=== PATIENT | female | born 1935 | race Caucasian/White ===

== ENCOUNTER 2016-12-11 12:21 | Emergency (ER) | payer MEDICARE, BC ==
[2016-12-11] MEDS ORDERED: SODIUM CHLORIDE 0.9% 1,000 ML IV STA (13:01)
[2016-12-11] MEDS ORDERED: MORPHINE SULFATE 4 MG/ML SYRINGE IV STA (13:01)
[2016-12-11 13:13] LABS: Basophils # (A) 0.1 k/uL (0-0.2); Basophils % (A) 1 %; CH 30.1; CHCM 32.6; Eosinophils # (A) 0.2 k/uL (0-0.7); Eosinophils % (A) 2 %; HCT 37.5 % (34.0-46.0); HDW 2.13; HGB 12.1 gm/dL (11.4-16.0); Luc # (Auto) 0.16; Luc % (Auto) 2; Lymphocytes # (A) 1.9 k/uL (1.0-4.8); Lymphocytes % (A) 24 %; MCH 29.8 pg (25.0-35.0); MCHC 32.1 g/dL (31.0-37.0); MCV 92.8 fL (80.0-100.0); Mean Platelet Volume 9.2; Monocytes # (A) 0.5 k/uL (0-1.0); Monocytes % (A) 6 %; Neutrophils # (A) 4.9 k/uL (1.3-7.7); Neutrophils % (A) 65 %; RBC 4.04 m/uL (3.80-5.40); RDW 13.4 % (11.5-15.5); WBC 7.6 k/uL (3.8-10.6); WBC (Perox) 8.11
[2016-12-11 13:22] LABS: INR 1.1 (<1.1); Prothrombin Time 10.7 sec (9.0-12.0)
--- NOTE | 2016-12-11 13:32 | XR ---
EXAMINATION TYPE: XR chest 2V DATE OF EXAM: 12/11/2016 COMPARISON: June 17, 2016 HISTORY: Shortness of breath TECHNIQUE: Frontal and lateral views of the chest are obtained. FINDINGS: Scattered senescent parenchymal changes noted. Hyperinflation compatible with COPD. No evidence for infiltrate. No evidence for atelectasis. Heart size is stable. Mediastinal structures are stable and grossly unremarkable. No evidence for hilar prominence. Degenerative changes dorsal spine. Clinical eventration right hemidiaphragm. IMPRESSION: 1. No evidence for acute pulmonary disease.
[2016-12-11 13:38] LABS: Creatine Kinase 71 U/L (30-135)
[2016-12-11 13:46] LABS: Calcium 8.8 mg/dL (8.4-10.2); Magnesium 1.6 mg/dL (1.6-2.3); Potassium 3.9 mmol/L (3.5-5.1); Total Bilirubin 0.6 mg/dL (0.2-1.3); Total Protein 5.7 g/dL (6.3-8.2)
[2016-12-11 13:51] LABS: Creatine Kinase MB 0.7 ng/mL (0.0-2.4); Troponin I <0.012 ng/mL (0.000-0.034)
--- NOTE | 2016-12-11 14:08 | ED ---
General Adult HPI - General Chief complaint: Chest Pain Stated complaint: Left Side Pain Time Seen by Provider: 12/11/16 13:01 Source: patient, family, RN notes reviewed, old records reviewed Mode of arrival: wheelchair Limitations: no limitations - History of Present Illness Initial comments: This is an 81-year-old female ER for evaluation back pain and upper neck pain left upper shoulder pain worse with movement. Patient has no shortness of breath, no fevers cough or congestion. No modifying factors at all for pain. Family states they did give her Motrin 2 days ago that did help her help her at least get sleep. Pains going on the third day and patient is is that getting any better. She denies any trauma. Does state she has a history of similar pain usually from sleeping well - Related Data Home Medications Medication Instructions Recorded Confirmed Atorvastatin [Lipitor] 10 mg PO QAM 08/01/15 12/11/16 DULoxetine HCL [Cymbalta] 60 mg PO HS 08/01/15 12/11/16 Desloratadine 5 mg PO QAM 08/01/15 12/11/16 Donepezil HCl [Aricept] 10 mg PO HS 08/01/15 12/11/16 Ferrous Sulfate [Feosol] 325 mg PO DAILY 08/01/15 12/11/16 Gabapentin [Neurontin] 200 mg PO BID 08/01/15 12/11/16 Levothyroxine Sodium [Synthroid] 150 mcg PO QAM 08/01/15 12/11/16 Metoprolol Succinate (ER) [Toprol 25 mg PO HS 08/01/15 12/11/16 XL] Mirabegron [Myrbetriq] 50 mg PO QAM 08/01/15 12/11/16 Pantoprazole [Protonix] 40 mg PO QAM 08/01/15 12/11/16 buPROPion HCL [Wellbutrin SR] 200 mg PO BID 08/01/15 12/11/16 Aspirin EC [Ecotrin Low Dose] 81 mg PO QAM 06/17/16 12/11/16 Insulin Lispro [humaLOG Kwikpen] 10 unit SQ QAM 06/17/16 12/11/16 Isosorbide Mononitrate ER [Imdur] 30 mg PO QAM 06/17/16 12/11/16 Metoprolol Succinate (ER) [Toprol 50 mg PO QAM 06/17/16 12/11/16 XL] Ascorbic Acid [Vitamin C] 1,000 mg PO DAILY 12/11/16 12/11/16 Cyanocobalamin (Vitamin B-12) 2,500 mcg PO DAILY 12/11/16 12/11/16 [Vitamin B12] Furosemide [Lasix] 60 mg PO QAM 12/11/16 12/11/16 Insulin Glargine,Hum.rec.anlog 52 unit SQ QAM 12/11/16 12/11/16 [Lantus Solostar] Losartan [Cozaar] 25 mg PO QAM 12/11/16 12/11/16 Meclizine [Antivert] 12.5 mg PO BID PRN 12/11/16 12/11/16 Allergies Allergy/AdvReac Type Severity Reaction Status Date / Time Penicillins Allergy Rash/Hives Verified 12/11/16 12:56 Sulfa (Sulfonamide Allergy Rash/Hives Verified 12/11/16 12:56 Antibiotics) Review of Systems ROS Statement: Those systems with pertinent positive or pertinent negative responses have been documented in the HPI. ROS Other: All systems not noted in ROS Statement are negative. Past Medical History Past Medical History: Cancer, Heart Failure, Diabetes Mellitus, GERD/Reflux, Hyperlipidemia, Hypertension, Memory Impairment, Osteoarthritis (OA), Sleep Apnea/CPAP/BIPAP, Thyroid Disorder Additional Past Medical History / Comment(s): Other HX: IDDM type II, MICHAEL with CPAP, hypothyroidism, iron deficiency anemia, hiatal hernia, chronic back pain, bilateral neuropathy of legs and feet, leg edema bilaterally, memory impairment , rocacea, cervical and uterine cancer with hysterectomy, History of Any Multi-Drug Resistant Organisms: None Reported Past Surgical History: Bariatric Surgery, Cholecystectomy, Heart Catheterization , Hernia Repair, Hysterectomy Additional Past Surgical History / Comment(s): 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 Past Anesthesia/Blood Transfusion Reactions: No Reported Reaction Additional Past Anesthesia/Blood Transfusion Reaction / Comment(s): Pt has had blood transfused without reaction. Past Psychological History: Anxiety, Depression Additional Psychological History / Comment(s): Pt lives alone. She has a daughter who is very helpful. Her vonda assists her and manages pt's meds and drives pt to appts. Pt uses a cane to ambulate. Smoking Status: Never smoker Past Alcohol Use History: None Reported Past Drug Use History: None Reported - Past Family History Father Family Medical History: Cancer (Father at the age 88 from prostate cancer) Additional Family Medical History / Comment(s): Father of prostate cancer at age 88 yrs. Mother Family Medical History: Cancer (Mother at age of 76 from myocardial infarction, diabetes and some sort of cancer), Diabetes Mellitus, Myocardial Infarction ([place]) Additional Family Medical History / Comment(s): Mother at age 77yrs. Brother(s) Family Medical History: Blood Disorder, CVA/TIA (Patient had 4 brothers one of her brothers from down syndrome at age 58 the second one from CVA at 63rd one from myocardial infarction and competition of diabetes the fourth one at age of 71 from leukemia), Diabetes Mellitus, Myocardial Infarction ( [place]) Daughter(s) Family Medical History: Cancer (Patient had 4 daughters one of them from liver cancer.) Son(s) Family Medical History: No Reported History (Patient has 4 sons no major medical problems) General Exam Limitations: no limitations General appearance: alert, in no apparent distress, obese Head exam: Present: atraumatic, normocephalic, normal inspection Eye exam: Present: normal appearance, PERRL, EOMI. Absent: scleral icterus, conjunctival injection, periorbital swelling ENT exam: Present: normal exam, mucous membranes moist Neck exam: Present: normal inspection. Absent: tenderness, meningismus, lymphadenopathy Respiratory exam: Present: normal lung sounds bilaterally. Absent: respiratory distress, wheezes, rales, rhonchi, stridor Cardiovascular Exam: Present: regular rate, normal rhythm, normal heart sounds. Absent: systolic murmur, diastolic murmur, rubs, gallop, clicks GI/Abdominal exam: Present: soft, normal bowel sounds. Absent: distended, tenderness, guarding, rebound, rigid Extremities exam: Present: normal inspection, full ROM, normal capillary refill. Absent: tenderness, pedal edema, joint swelling, calf tenderness Back exam: Present: normal inspection Neurological exam: Present: alert, oriented X3, CN II-XII intact Psychiatric exam: Present: normal affect, normal mood Skin exam: Present: warm, dry, intact, normal color. Absent: rash Course Vital Signs 12/11/16 12/11/16 12/11/16 12:29 13:25 14:10 Temperature 99.4 F Pulse Rate 58 L 55 L 54 L Respiratory 18 16 18 Rate Blood Pressure 121/57 126/56 118/57 O2 Sat by Pulse 98 99 98 Oximetry - Reevaluation(s) Reevaluation #1: 12/11/16 14:49 Family states patient does have history of similar pain usually for sleeping wrong EKG Findings - EKG Comments: EKG Findings:: EKG shows normal sinus rhythm rate of 60, GA 170, QRS 86, QTc 462 Medical Decision Making - Medical Decision Making 81 female at a year for evaluation of pain, neck upper back and left shoulder pain, patient is very immobile and obese. Pain worse with movement. Pain resolved with pain control. X-ray lab work is normal and patient will be discharged home. - Lab Data Result diagrams: 12/11/16 12:53 12/11/16 12:53 Lab Results 12/11/16 12/11/16 12/11/16 Range/Units 12:53 12:53 12:53 WBC 7.6 (3.8-10.6) k/uL RBC 4.04 (3.80-5.40) m/uL Hgb 12.1 (11.4-16.0) gm/dL Hct 37.5 (34.0-46.0) % MCV 92.8 (80.0-100.0) fL MCH 29.8 (25.0-35.0) pg MCHC 32.1 (31.0-37.0) g/dL RDW 13.4 (11.5-15.5) % Plt Count 214 (150-450) k/uL Neutrophils % 65 % Lymphocytes % 24 % Monocytes % 6 % Eosinophils % 2 % Basophils % 1 % Neutrophils # 4.9 (1.3-7.7) k/uL Lymphocytes # 1.9 (1.0-4.8) k/uL Monocytes # 0.5 (0-1.0) k/uL Eosinophils # 0.2 (0-0.7) k/uL Basophils # 0.1 (0-0.2) k/uL PT (9.0-12.0) sec INR (<1.1) APTT (22.0-30.0) sec Sodium 142 (137-145) mmol/L Potassium 3.9 (3.5-5.1) mmol/L Chloride 103 (98-107) mmol/L Carbon Dioxide 29 (22-30) mmol/L Anion Gap 10 mmol/L BUN 23 H (7-17) mg/dL Creatinine 1.40 H (0.52-1.04) mg/dL Est GFR (MDRD) Af Amer 44 (>60 ml/min/1.73 sqM) Est GFR (MDRD) Non-Af 36 (>60 ml/min/1.73 sqM) Glucose 96 (74-99) mg/dL Calcium 8.8 (8.4-10.2) mg/dL Magnesium 1.6 (1.6-2.3) mg/dL Total Bilirubin 0.6 (0.2-1.3) mg/dL AST 22 (14-36) U/L ALT 29 (9-52) U/L Alkaline Phosphatase 105 (38-126) U/L Total Creatine Kinase 71 (30-135) U/L CK-MB (CK-2) 0.7 (0.0-2.4) ng/mL CK-MB (CK-2) Rel Index 1.0 Troponin I <0.012 (0.000-0.034) ng/mL NT-Pro-B Natriuret Pep pg/mL Total Protein 5.7 L (6.3-8.2) g/dL Albumin 3.5 (3.5-5.0) g/dL Lipase 71 (23-300) U/L 12/11/16 12/11/16 Range/Units 12:53 12:53 WBC (3.8-10.6) k/uL RBC (3.80-5.40) m/uL Hgb (11.4-16.0) gm/dL Hct (34.0-46.0) % MCV (80.0-100.0) fL MCH (25.0-35.0) pg MCHC (31.0-37.0) g/dL RDW (11.5-15.5) % Plt Count (150-450) k/uL Neutrophils % % Lymphocytes % % Monocytes % % Eosinophils % % Basophils % % Neutrophils # (1.3-7.7) k/uL Lymphocytes # (1.0-4.8) k/uL Monocytes # (0-1.0) k/uL Eosinophils # (0-0.7) k/uL Basophils # (0-0.2) k/uL PT 10.7 (9.0-12.0) sec INR 1.1 (<1.1) APTT 30.0 (22.0-30.0) sec Sodium (137-145) mmol/L Potassium (3.5-5.1) mmol/L Chloride (98-107) mmol/L Carbon Dioxide (22-30) mmol/L Anion Gap mmol/L BUN (7-17) mg/dL Creatinine (0.52-1.04) mg/dL Est GFR (MDRD) Af Amer (>60 ml/min/1.73 sqM) Est GFR (MDRD) Non-Af (>60 ml/min/1.73 sqM) Glucose (74-99) mg/dL Calcium (8.4-10.2) mg/dL Magnesium (1.6-2.3) mg/dL Total Bilirubin (0.2-1.3) mg/dL AST (14-36) U/L ALT (9-52) U/L Alkaline Phosphatase (38-126) U/L Total Creatine Kinase (30-135) U/L CK-MB (CK-2) (0.0-2.4) ng/mL CK-MB (CK-2) Rel Index Troponin I (0.000-0.034) ng/mL NT-Pro-B Natriuret Pep 464 pg/mL Total Protein (6.3-8.2) g/dL Albumin (3.5-5.0) g/dL Lipase (23-300) U/L - Radiology Data Radiology results: report reviewed (Chest x-ray is negative for acute disease), image reviewed Disposition Clinical Impression: Myalgia, Cervical strain Disposition: HOME SELF-CARE Condition: Good Instructions: Musculoskeletal Pain (ED) Referrals: Malcolm Miranda MD [Primary Care Provider] - 1-2 days
[2016-12-11 15:08] VITALS: BP 120/58; PULSE 87; RESP 16; TEMP 97.6
== END 2016-12-11 15:09 | disposition home or self-care (01) ==
LOC: EC 12:21
DX: S16.1XXA Strain of muscle, fascia and tendon at neck level, initial encounter (principal); M79.1 Myalgia; R07.9 Chest pain, unspecified; I11.0 Hypertensive heart disease with heart failure; I50.9 Heart failure, unspecified; E11.9 Type 2 diabetes mellitus without complications; E78.5 Hyperlipidemia, unspecified; K21.9 Gastro-esophageal reflux disease without esophagitis; M19.90 Unspecified osteoarthritis, unspecified site; E03.9 Hypothyroidism, unspecified; F32.9 Major depressive disorder, single episode, unspecified; F41.9 Anxiety disorder, unspecified; D50.9 Iron deficiency anemia, unspecified; Z85.41 Personal history of malignant neoplasm of cervix uteri; Z85.42 Personal history of malignant neoplasm of other parts of uterus; Z79.4 Long term (current) use of insulin; Z79.82 Long term (current) use of aspirin; Z79.899 Other long term (current) drug therapy; Z88.0 Allergy status to penicillin; Z88.2 Allergy status to sulfonamides; X58.XXXA Exposure to other specified factors, initial encounter
CPT/HCPCS: 36415; 93005; 83880; 80053; 82550; 82553; 83690; 83735; 84484; 85025; 85610; 85730; 71020; 99285; 96374; 96361 ×2; J2270

== ENCOUNTER 2019-03-25 21:53 | Inpatient (IN) | payer MEDICARE, BC ==
--- NOTE | 2019-03-25 21:55 | ED ---
Fall HPI - General Stated Complaint: syncope Time Seen by Provider: 03/25/19 21:54 - History of Present Illness Initial Comments: Marleen is a pleasant 84-year-old female presents to the emergency department today via EMS after a syncopal episode at home. Per the patient she had a syncopal episode yesterday and fell she's been having some pain in her right shoulder since then. This evening she had used the restroom got up and was washing her hands when she began to feel very lightheaded and fell to the ground. Patient felt too weak to stand so EMS was contacted. EMS found the patient resting, she is noted to be somewhat hypotensive, and at the hospital she received some IV fluids her blood pressure improved remained asymptomatic. Patient reports never had any chest pain or palpitations prior to fall. She did not hit her head she did not have a loss of consciousness. She has no history of syncope in the past. - Related Data Home Medications Medication Instructions Recorded Confirmed Atorvastatin [Lipitor] 10 mg PO QAM 08/01/15 03/25/19 DULoxetine HCL [Cymbalta] 60 mg PO HS 08/01/15 03/25/19 Desloratadine 5 mg PO QAM 08/01/15 03/25/19 Donepezil HCl [Aricept] 10 mg PO HS 08/01/15 03/25/19 Gabapentin [Neurontin] 200 mg PO BID 08/01/15 03/25/19 Mirabegron [Myrbetriq] 50 mg PO QAM 08/01/15 03/25/19 Pantoprazole [Protonix] 40 mg PO QAM 08/01/15 03/25/19 buPROPion HCL [Wellbutrin SR] 200 mg PO BID 08/01/15 03/25/19 Aspirin EC [Ecotrin Low Dose] 81 mg PO QAM 06/17/16 03/25/19 Isosorbide Mononitrate ER [Imdur] 30 mg PO QAM 06/17/16 03/25/19 Insulin Glargine,Hum.rec.anlog 50 unit SQ 12/11/16 03/25/19 [Lantus Solostar] Losartan [Cozaar] 25 mg PO QAM 12/11/16 03/25/19 Ascorbic Acid [Vitamin C] 500 mg PO DAILY 03/25/19 03/25/19 Cyanocobalamin (Vitamin B-12) 2,500 mcg PO DAILY 03/25/19 03/25/19 [Vitamin B-12] Ergocalciferol [Vitamin D2] 50,000 unit PO FR 03/25/19 03/25/19 Ferrous Sulfate [Feosol] 325 mg PO DAILY 03/25/19 03/25/19 Furosemide [Lasix] 40 mg PO DAILY 03/25/19 03/25/19 HYDROcodone/APAP 5-325MG [[place] 1 tab PO BID PRN 03/25/19 03/25/19 5-325] Levothyroxine Sodium [Synthroid] 175 mcg PO MOTUWETHFR 03/25/19 03/25/19 Metoprolol Succinate (ER) [Toprol 25 mg PO DAILY 03/25/19 03/25/19 Xl] Allergies Allergy/AdvReac Type Severity Reaction Status Date / Time Penicillins Allergy Rash/Hives Verified 03/25/19 23:25 Sulfa (Sulfonamide Allergy Rash/Hives Verified 03/25/19 23:25 Antibiotics) Review of Systems ROS Statement: Those systems with pertinent positive or pertinent negative responses have been documented in the HPI. ROS Other: All systems not noted in ROS Statement are negative. Past Medical History Past Medical History: Cancer, Heart Failure, Diabetes Mellitus, GERD/Reflux, Hyperlipidemia, Hypertension, Memory Impairment, Osteoarthritis (OA), Sleep Apnea/CPAP/BIPAP, Thyroid Disorder Additional Past Medical History / Comment(s): CPAP,, iron deficiency anemia, hiatal hernia, chronic back pain, bilateral neuropathy of legs and feet, leg edema bilaterally, , , cervical and uterine cancer , ROSACEA History of Any Multi-Drug Resistant Organisms: None Reported Past Surgical History: Bariatric Surgery, Cholecystectomy, Heart Catheterization, Hernia Repair, Hysterectomy, Orthopedic Surgery Additional Past Surgical History / Comment(s): 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 Smoking Status: Never smoker - Past Family History Father Family Medical History: Cancer Additional Family Medical History / Comment(s): Father of prostate cancer at age 88 yrs. Mother Family Medical History: Cancer, Diabetes Mellitus, Myocardial Infarction ([place]) Additional Family Medical History / Comment(s): Mother at age 77yrs. Brother(s) Family Medical History: Blood Disorder, CVA/TIA, Diabetes Mellitus, Myocardial Infarction ([place]) Daughter(s) Family Medical History: Cancer Son(s) Family Medical History: No Reported History General Exam - General Exam Comments Initial Comments: Physical Exam GENERAL: Elderly female, no acute distress HENT: Normocephalic, Atraumatic. EYES: PERRL, EOMI PULMONARY: Unlabored respirations. No audible rales rhonchi or wheezing was noted. CARDIOVASCULAR: RRR 1+ pitting edema lower extremity ABDOMEN: Soft and nontender with normal bowel sounds. SKIN: Pale : Deferred NEUROLOGIC: Patient is alert and oriented x3. Moving all extremities spontaneously MUSCULOSKELETAL: Normal extremities with adequate strength and full range of motion. No lower extremity swelling or edema. No calf tenderness. PSYCHIATRIC: Normal psychiatric evaluation. Course Vital Signs 03/25/19 03/25/19 03/25/19 21:56 23:02 23:44 Temperature 98.2 F Pulse Rate 77 60 64 Respiratory 20 18 16 Rate Blood Pressure 110/60 112/64 102/49 O2 Sat by Pulse 96 98 100 Oximetry 03/26/19 00:00 Temperature Pulse Rate 64 Respiratory 20 Rate Blood Pressure 102/39 O2 Sat by Pulse 98 Oximetry Medical Decision Making - Medical Decision Making She was seen and evaluated history is obtained from patient and this is a pleasant 84-year-old female presenting after 2 syncopal episodes in 2 days Patient was initially hypotensive however blood pressures improved in route to the hospital, patient complains of pain in her right shoulder there is no obvious deformity or bruising but limited range of motion secondary to pain Labs and imaging were ordered EKG was obtained due to complaint of syncope, EKG was obtained at 2202, rate is 68 rhythm is sinus with bigeminy. Normal axis, normal intervals, OH 168, QRS 78, QTC 497 there is no acute ST elevations or depressions or evidence of acute ischemia or infarction. Labs resulted with microcytic anemia is likely chronic in nature, patient's last hemoglobin at this hospital is over a year ago but was greater than 12. Patient's hemoglobin is strep greater than 5 g. Given this is a cardiac patient having syncope we will plan to transfuse. Patient's primary care physician Dr. Ye admits to the [facility], patient care discussed with Dr. King who accepts admission for symptomatic anemia, syncope, NELDA admission orders were placed. - Lab Data Result diagrams: 03/25/19 22:41 03/25/19 22:41 Lab Results 03/25/19 03/25/19 03/25/19 Range/Units 22:41 22:41 22:41 WBC 8.8 (3.8-10.6) k/uL RBC 3.30 L (3.80-5.40) m/uL Hgb 7.3 L (11.4-16.0) gm/dL Hct 24.1 L (34.0-46.0) % MCV 72.9 L (80.0-100.0) fL MCH 22.1 L (25.0-35.0) pg MCHC 30.4 L (31.0-37.0) g/dL RDW 16.3 H (11.5-15.5) % Plt Count 280 (150-450) k/uL Neutrophils % 72 % Lymphocytes % 16 % Monocytes % 6 % Eosinophils % 3 % Basophils % 1 % Neutrophils # 6.3 (1.3-7.7) k/uL Lymphocytes # 1.4 (1.0-4.8) k/uL Monocytes # 0.5 (0-1.0) k/uL Eosinophils # 0.3 (0-0.7) k/uL Basophils # 0.1 (0-0.2) k/uL Hypochromasia Marked Poikilocytosis Slight Anisocytosis Slight Microcytosis Moderate PT 10.9 (9.0-12.0) sec INR 1.0 (<1.2) APTT 26.8 (22.0-30.0) sec Sodium 140 (137-145) mmol/L Potassium 4.2 (3.5-5.1) mmol/L Chloride 103 (98-107) mmol/L Carbon Dioxide 28 (22-30) mmol/L Anion Gap 9 mmol/L BUN 34 H (7-17) mg/dL Creatinine 1.70 H (0.52-1.04) mg/dL Est GFR (CKD-EPI)AfAm 32 (>60 ml/min/1.73 sqM) Est GFR (CKD-EPI)NonAf 27 (>60 ml/min/1.73 sqM) Glucose 131 H (74-99) mg/dL Calcium 7.4 L (8.4-10.2) mg/dL Total Bilirubin 0.5 (0.2-1.3) mg/dL AST 22 (14-36) U/L ALT 15 (9-52) U/L Alkaline Phosphatase 100 (38-126) U/L Troponin I (0.000-0.034) ng/mL Total Protein 5.7 L (6.3-8.2) g/dL Albumin 3.5 (3.5-5.0) g/dL Urine Color Urine Appearance (Clear) Urine pH (5.0-8.0) Ur Specific [place] (1.001-1.035) Urine Protein (Negative) Urine Glucose (UA) (Negative) Urine Ketones (Negative) Urine Blood (Negative) Urine Nitrite (Negative) Urine Bilirubin (Negative) Urine Urobilinogen (<2.0) mg/dL Ur Leukocyte Esterase (Negative) 03/25/19 03/25/19 Range/Units 22:41 23:27 WBC (3.8-10.6) k/uL RBC (3.80-5.40) m/uL Hgb (11.4-16.0) gm/dL Hct (34.0-46.0) % MCV (80.0-100.0) fL MCH (25.0-35.0) pg MCHC (31.0-37.0) g/dL RDW (11.5-15.5) % Plt Count (150-450) k/uL Neutrophils % % Lymphocytes % % Monocytes % % Eosinophils % % Basophils % % Neutrophils # (1.3-7.7) k/uL Lymphocytes # (1.0-4.8) k/uL Monocytes # (0-1.0) k/uL Eosinophils # (0-0.7) k/uL Basophils # (0-0.2) k/uL Hypochromasia Poikilocytosis Anisocytosis Microcytosis PT (9.0-12.0) sec INR (<1.2) APTT (22.0-30.0) sec Sodium (137-145) mmol/L Potassium (3.5-5.1) mmol/L Chloride (98-107) mmol/L Carbon Dioxide (22-30) mmol/L Anion Gap mmol/L BUN (7-17) mg/dL Creatinine (0.52-1.04) mg/dL Est GFR (CKD-EPI)AfAm (>60 ml/min/1.73 sqM) Est GFR (CKD-EPI)NonAf (>60 ml/min/1.73 sqM) Glucose (74-99) mg/dL Calcium (8.4-10.2) mg/dL Total Bilirubin (0.2-1.3) mg/dL AST (14-36) U/L ALT (9-52) U/L Alkaline Phosphatase (38-126) U/L Troponin I <0.012 (0.000-0.034) ng/mL Total Protein (6.3-8.2) g/dL Albumin (3.5-5.0) g/dL Urine Color Yellow Urine Appearance Clear (Clear) Urine pH 5.5 (5.0-8.0) Ur Specific [place] 1.008 (1.001-1.035) Urine Protein Negative (Negative) Urine Glucose (UA) Negative (Negative) Urine Ketones Negative (Negative) Urine Blood Negative (Negative) Urine Nitrite Negative (Negative) Urine Bilirubin Negative (Negative) Urine Urobilinogen <2.0 (<2.0) mg/dL Ur Leukocyte Esterase Negative (Negative) Disposition Clinical Impression: Anemia, Syncope, NELDA (acute kidney injury) Disposition: ADMITTED IP TO THIS [facility] Condition: Serious Referrals: Tyrell Kapadia DO [REFERRING] - 1-2 days
[2019-03-25] MEDS ORDERED: SODIUM CHLORIDE 0.9% 1,000 ML IV STA (22:21)
[2019-03-25 22:50] LABS: Anisocytosis Slight; Basophils # (A) 0.1 k/uL (0-0.2); Basophils % (A) 1 %; Eosinophils # (A) 0.3 k/uL (0-0.7); Eosinophils % (A) 3 %; HCT 24.1 % (34.0-46.0); HGB 7.3 gm/dL (11.4-16.0); Hypochromasia Marked; Lymphocytes # (A) 1.4 k/uL (1.0-4.8); Lymphocytes % (A) 16 %; MCH 22.1 pg (25.0-35.0); MCHC 30.4 g/dL (31.0-37.0); MCV 72.9 fL (80.0-100.0); Mean Platelet Volume 7.3; Microcytosis Moderate; Monocytes # (A) 0.5 k/uL (0-1.0); Monocytes % (A) 6 %; Neutrophils # (A) 6.3 k/uL (1.3-7.7); Neutrophils % (A) 72 %; Platelet Count 280 k/uL (150-450); Poikilocytosis Slight; RDW 16.3 % (11.5-15.5); WBC 8.8 k/uL (3.8-10.6)
[2019-03-25 22:58] LABS: Partial Thromboplastin Time 26.8 sec (22.0-30.0); Prothrombin Time 10.9 sec (9.0-12.0)
[2019-03-25 23:06] LABS: Albumin 3.5 g/dL (3.5-5.0); Calcium 7.4 mg/dL (8.4-10.2); Potassium 4.2 mmol/L (3.5-5.1); Total Bilirubin 0.5 mg/dL (0.2-1.3); Total Protein 5.7 g/dL (6.3-8.2)
[2019-03-25 23:35] LABS: Appearance,Urine Clear (Clear); Bilirubin,Urine Negative (Negative); Blood,Urine Negative (Negative); Color,Urine Yellow; Glucose,Urine (UA) Negative (Negative); Ketones,Urine Negative (Negative); Leukocyte Esterase,Urine Negative (Negative); Nitrite,Urine Negative (Negative); PH, Urine 5.5 (5.0-8.0); Protein,Urine Negative (Negative); Specific Gravity,Urine 1.008 (1.001-1.035); Urobilinogen,Urine <2.0 mg/dL (<2.0)
--- NOTE | 2019-03-26 00:10 | XR ---
EXAM: XR Right Shoulder Complete, 2 or More Views CLINICAL HISTORY: ITS.REASON XR Reason: pain TECHNIQUE: Two or more views of the right shoulder. COMPARISON: No relevant prior studies available. FINDINGS: See Impression. IMPRESSION: 1. No acute or healing fracture or malalignment. 2. Moderate degenerative changes at the acromioclavicular joint. 3. Calcium hydroxyapatite crystal density disease along the infraspinatus tendon. 4. Question grouping of small nodular calcifications at the right midlung zone. Consider old granulomatous disease.
[2019-03-26] MEDS ORDERED: NALOXONE 0.4 MG/ML 1 ML VIAL IV PRN (00:11)
--- NOTE | 2019-03-26 00:22 | XR ---
EXAM: XR Chest, 2 Views CLINICAL HISTORY: ITS.REASON XR Reason: syncope TECHNIQUE: Frontal and lateral views of the chest. COMPARISON: 12/11/16 chest radiography. FINDINGS: Lungs: No consolidation. Pleural space: No pleural effusion or pneumothorax. Heart: Unremarkable. No cardiomegaly. Mediastinum: Atherosclerotic calcifications of the nonenlarged thoracic aortic arch. Bones/joints: Degenerative changes of spine. Acromioclavicular joint moderate severity degenerative changes bilaterally. IMPRESSION: No acute findings in the chest.
[2019-03-26 01:41] VITALS: BMI 47.6
[2019-03-26] MEDS: ACETAMINOPHEN TAB 325 MG TAB PO PRN ×2 (02:39→20:44)
--- NOTE | 2019-03-26 03:49 | P.HPIM ---
History of Present Illness H&P Date: 03/26/19 Patient is a 84-year-old female with a PMH of the hypertension, hyperlipidemia, diabetes mellitus, COPD, diastolic CHF, and osteoarthritis who presented to the ED with complaints of a syncopal episode earlier today. Patient notes that she was in her usual state of health and had just use the toilet, when she was standing at the sink washing her hands and before she knew it, she was on the ground. She notes never having lost consciousness in the past. The episode of unwitnessed, with unknnown duration. She denied any prodrome of chest pain, shortness of breath, palpitations, or dizziness. She further denied any tongue bites, urinary incontinence, or bowel incontinence. She denied recent illness, fever, chills, cough, abdominal pain, melena, hematochezia, or vaginal bleeding. She did endorse some long-standing R shoulder pain, for the past few months, which is unchanged. She underwent an extensive rash in the emergency room with a chest x-ray that was unremarkable, shoulder x-ray which revealed degenerative changes of the acromioclavicular joint, with no fractures noted. EKG revealed sinus rhythm w/ bigeminy @ 68 bpm. Laboratory evaluation revealed a WBC count of 8.8, hemoglobin 7.3 (down from 12.1 in December 2016), sodium 140, potassium 4.0, INR 1.0, BUN 34, creatinine 1.7, and troponin less than 0.012. Review of Systems Pertinent positives and negatives as discussed in HPI, a complete review of systems was performed and all other systems are negative. Past Medical History Past Medical History: Cancer, Heart Failure, Diabetes Mellitus, GERD/Reflux, Hyperlipidemia, Hypertension, Memory Impairment, Osteoarthritis (OA), Sleep Apnea/CPAP/BIPAP, Thyroid Disorder Additional Past Medical History / Comment(s): hiatal hernia, chronic back pain, bilateral neuropathy of legs and feet, leg edema bilaterally, , , cervical and uterine cancer , ROSACEA History of Any Multi-Drug Resistant Organisms: None Reported Past Surgical History: Bariatric Surgery, Cholecystectomy, Heart Catheterization, Hernia Repair, Hysterectomy, Orthopedic Surgery Additional Past Surgical History / Comment(s): 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 Past Psychological History: Anxiety, Depression Additional Psychological History / Comment(s): Pt lives alone. She has a daughter who is very helpful. Her vonda assists her and manages pt's meds and drives pt to appts. Pt uses a cane to ambulate. Smoking Status: Never smoker Past Alcohol Use History: None Reported Past Drug Use History: None Reported - Past Family History Father Family Medical History: Cancer Additional Family Medical History / Comment(s): Father of prostate cancer at age 88 yrs. Mother Family Medical History: Cancer, Diabetes Mellitus, Myocardial Infarction ([place]) Additional Family Medical History / Comment(s): Mother at age 77yrs. Brother(s) Family Medical History: Blood Disorder, CVA/TIA, Diabetes Mellitus, Myocardial Infarction ([place]) Daughter(s) Family Medical History: Cancer Son(s) Family Medical History: No Reported History Medications and Allergies Home Medications Medication Instructions Recorded Confirmed Type Atorvastatin [Lipitor] 10 mg PO QAM 08/01/15 03/25/19 History DULoxetine HCL [Cymbalta] 60 mg PO HS 08/01/15 03/25/19 History Desloratadine 5 mg PO QAM 08/01/15 03/25/19 History Donepezil HCl [Aricept] 10 mg PO HS 08/01/15 03/25/19 History Gabapentin [Neurontin] 200 mg PO BID 08/01/15 03/25/19 History Mirabegron [Myrbetriq] 50 mg PO QAM 08/01/15 03/25/19 History Pantoprazole [Protonix] 40 mg PO QAM 08/01/15 03/25/19 History buPROPion HCL [Wellbutrin SR] 200 mg PO BID 08/01/15 03/25/19 History Aspirin EC [Ecotrin Low Dose] 81 mg PO QAM 06/17/16 03/25/19 History Isosorbide Mononitrate ER [Imdur] 30 mg PO QAM 06/17/16 03/25/19 History Insulin Glargine,Hum.rec.anlog 50 unit SQ 12/11/16 03/25/19 History [Lantus Solostar] Losartan [Cozaar] 25 mg PO QAM 12/11/16 03/25/19 History Ascorbic Acid [Vitamin C] 500 mg PO DAILY 03/25/19 03/25/19 History Cyanocobalamin (Vitamin B-12) 2,500 mcg PO DAILY 03/25/19 03/25/19 History [Vitamin B-12] Ergocalciferol [Vitamin D2] 50,000 unit PO FR 03/25/19 03/25/19 History Ferrous Sulfate [Feosol] 325 mg PO DAILY 03/25/19 03/25/19 History Furosemide [Lasix] 40 mg PO DAILY 03/25/19 03/25/19 History HYDROcodone/APAP 5-325MG [Happy [place] 1 tab PO BID PRN 03/25/19 03/25/19 History 5-325] Levothyroxine Sodium [Synthroid] 175 mcg PO MOTUWETHFR 03/25/19 03/25/19 History Metoprolol Succinate (ER) [Toprol 25 mg PO DAILY 03/25/19 03/25/19 History Xl] Allergies Allergy/AdvReac Type Severity Reaction Status Date / Time Penicillins Allergy Rash/Hives Verified 03/25/19 23:25 Sulfa (Sulfonamide Allergy Rash/Hives Verified 03/25/19 23:25 Antibiotics) Physical Exam Vitals: Vital Signs Temp Pulse Pulse Resp BP BP Pulse Ox 03/26/19 03:05 97.6 F 57 L 18 109/58 03/26/19 02:35 97.9 F 54 L 18 106/54 03/26/19 02:31 18 03/26/19 02:25 98.0 F 66 18 130/49 98 03/26/19 01:29 97.5 F L 60 15 98/41 100 03/26/19 00:00 64 20 102/39 98 03/25/19 23:44 64 16 102/49 100 03/25/19 23:02 60 18 112/64 98 03/25/19 21:56 98.2 F 77 20 110/60 96 Intake and Output 03/25/19 03/25/19 03/26/19 14:59 22:59 06:59 Intake Total 0 Balance 0 Intake: Blood Product 0 Rc As-3 Unit 0 [id number] Other: Voiding Method Toilet Weight 133.81 kg General: non toxic, no distress, appears at stated age, morbidly obese Derm: no unusual rashes/lesions no unusual ecchymoses, warm, dry Head: atraumatic, normocephalic, symmetric Eyes: EOMI, no lid lag, anicteric sclera, pupils equal round reactive to light ENT: Nose and ears atraumatic, no thrush, no pharyngeal erythema Neck: No thyromegaly, no cervical lymphadenopathy, trachea midline, supple, no tongue bites Mouth: no lip lesion, mucus membranes moist Cardiovascular: S1S2 reg, no murmur, positive posterior tibial pulse bilateral, no edema, capillary refill less than 2 seconds Lungs: CTA bilateral, no rhonchi, no rales , no accessory muscle use Abdominal: soft, nontender to palpation, no guarding, no appreciable organomegaly, normal bowel sounds Ext: no gross muscle atrophy, muscle strength 4 out of 5 in all 4 extremities grossly, no contractures, Neuro: CN II-XI grossly intact, light touch intact all 4 extremities, finger to nose within normal limits, Psych: Alert, oriented, appropriate affect Results CBC & Chem 7: 03/25/19 22:41 03/25/19 22:41 Labs: Abnormal Lab Results - Last 24 Hours (Table) 03/25/19 03/25/19 03/26/19 Range/Units 22:41 22:41 00:03 RBC 3.30 L (3.80-5.40) m/uL Hgb 7.3 L (11.4-16.0) gm/dL Hct 24.1 L (34.0-46.0) % MCV 72.9 L (80.0-100.0) fL MCH 22.1 L (25.0-35.0) pg MCHC 30.4 L (31.0-37.0) g/dL RDW 16.3 H (11.5-15.5) % BUN 34 H (7-17) mg/dL Creatinine 1.70 H (0.52-1.04) mg/dL Glucose 131 H (74-99) mg/dL Calcium 7.4 L (8.4-10.2) mg/dL Total Protein 5.7 L (6.3-8.2) g/dL Crossmatch See Detail Thrombosis Risk Factor Assmnt - Choose All That Apply Any of the Below Risk Factors Present?: Yes Each Factor Represents 1 point: Obesity (BMI >25) Each Risk Factor Represents 3 Points: Age 75 years or older Thrombosis Risk Factor Assessment Total Risk Factor Score: 4 Thrombosis Risk Factor Assessment Level: Moderate Risk Assessment and Plan Plan: Loss of consciousness, possibly secondary to microcytic anemia vs vasovagal/orthostatic vs cardiogenic in nature (presence of bigeminy in setting of diastolic CHF) -Cardiac monitoring -Echocardiogram -Obtain anemia panel -Orthostatics Microcytic anemia -Obtain guaiac -Anemia panel -Monitor Hgb and transfuse if Hgb < 7 CKD -Monitor BMP -Avoid nephrotoxins Type 2 DM -Insulin 40 U qhs (takes 50 U at home) -DERRICK with blood glucose monitoring Chronic conditions: CHF, HTN, HLD, memory impairement -C/w home meds DVT prophylaxis -Heparin The patient is admitted with an anticipated less than 2 midnight stay for evaluation of syncope CODE STATUS: Full Code Discussed with: Patient Anticipated discharge date: 03/27/[address]: Home A total of 45 minutes was spent on the care of this complex patient more than 50% of the time was spent in counseling and care coordination.
[2019-03-26] MEDS ORDERED: traMADol 50 MG TAB PO STA ×2 (04:30→23:42)
[2019-03-26] MEDS: LEVOTHYROXINE 50 MCG TAB PO SCH (05:30)
[2019-03-26 07:52] LABS: Glucose,Whole Blood 94 mg/dL (75-99)
--- NOTE | 2019-03-26 07:54 | CT ---
EXAMINATION TYPE: CT brain wo con DATE OF EXAM: 03/26/2019 COMPARISON: None HISTORY: Syncope, fall, and head trauma CT DLP: 1025.4 mGycm Automated exposure control for dose reduction was used. Helical imaging through the brain. FINDINGS: Cortical atrophy is noted. Periventricular white matter shows patchy low attenuation. There is no hem orrhage or hydrocephalus. No mass effect. Orbits show symmetric appearance. Calvarium is intact. Para nasal sinuses and mastoid air cells as visualized are normal. There are cerebral vascular calcificati ons. IMPRESSION: NO ACUTE ABNORMALITY. AGE-RELATED CHANGES OF ATROPHY AND PROBABLE CHRONIC SMALL VESSEL ISCHEMIA.
[2019-03-26] MEDS: INSULIN ASPART (NovoLOG) 100 UNIT/ML VIAL SQ SCH ×3 (09:40→18:44)
[2019-03-26] MEDS: ISOSORBIDE MONONITRATE ER 30 MG TAB.ER.24H PO SCH (10:47)
[2019-03-26] MEDS: GABAPENTIN 100 MG CAP PO SCH ×2 (10:47→20:45)
[2019-03-26] MEDS: ATORVASTATIN 10 MG TAB PO SCH (10:47)
[2019-03-26] MEDS: buPROPion SR 100 MG TABLET.ER PO SCH ×2 (10:47→20:45)
[2019-03-26] MEDS: HEPARIN SODIUM,PORCINE 5,000 UNIT/ML 1 ML VIAL SQ SCH ×2 (10:47→17:37)
[2019-03-26 12:31] LABS: Glucose,Whole Blood 146 mg/dL (75-99)
[2019-03-26 15:09] LABS: Anisocytosis Slight; HCT 28.2 % (34.0-46.0); Hypochromasia Marked; MCHC 32.4 g/dL (31.0-37.0); MCV 74.2 fL (80.0-100.0); Mean Platelet Volume 8.4; Microcytosis Slight; Platelet Count 272 k/uL (150-450); Poikilocytosis Moderate; RDW 16.4 % (11.5-15.5); Reticulocyte % 1.9 % (0.5-2.0); WBC 8.9 k/uL (3.8-10.6)
[2019-03-26 15:15] LABS: HGB 9.1 gm/dL (11.4-16.0)
[2019-03-26 15:26] LABS: Calcium 7.4 mg/dL (8.4-10.2); Potassium 3.9 mmol/L (3.5-5.1)
[2019-03-26 18:29] LABS: Glucose,Whole Blood 137 mg/dL (75-99)
[2019-03-26 19:33] LABS: Iron Saturation 10.34 (12.00-45.00)
[2019-03-26 19:43] LABS: Folate, Serum 11.9 ng/mL
[2019-03-26 20:43] LABS: Glucose,Whole Blood 215 mg/dL (75-99)
[2019-03-26] MEDS: DONEPEZIL 10 MG TAB PO SCH (20:44)
--- NOTE | 2019-03-26 21:03 | P.PN ---
Subjective Progress Note Date: 03/26/19 (delayed charting seen at 1155) Principal diagnosis: Syncope Patient is an 84-year-old female past medical history of hypertension, dyslipidemia, diabetes, COPD, diastolic congestive heart failure, and osteoarthritis who presented to the emergency department with complaints of syncopal episode. Patient seen and examined at bedside. She reports no warning prior to losing consciousness, she has not had unknown syncopal event in the past. She denies any chest pain, shortness breath, nausea, vomiting, or dizziness prior to the event. She states her last fall was over 6 months ago. She denies any blood in her stools or dark tarry stools, coughing up blood, blood in her urine, or abnormal bruising or bleeding. Objective - Vital Signs Vital signs: Vital Signs Temp 98.5 F 03/26/19 19:37 Pulse 61 03/26/19 19:37 Resp 16 03/26/19 19:37 BP 101/51 03/26/19 19:37 Pulse Ox 94 L 03/26/19 19:37 Intake & Output 03/26/19 03/26/19 03/27/19 06:59 18:59 06:59 Intake Total 310 310 Output Total 500 Balance -190 310 Weight 133.81 kg Intake: Blood Product 310 310 Rc As-3 Unit 310 0 [id number] Rc Pheresis As-3 Unit 310 [id number] Output: Urine 500 Other: Voiding Method Toilet Bedpan Bedpan # Voids 2 - Exam General: non toxic, no distress, appears at stated age, obese Derm: warm, dry Head: atraumatic, normocephalic, symmetric Eyes: EOMI, no lid lag, anicteric sclera Mouth: no lip lesion, mucus membranes moist Cardiovascular: S1S2 reg, no murmur, positive posterior tibial pulse bilateral, Lungs: Decreased breath sounds bilateral, no rhonchi, no rales , no accessory muscle use Abdominal: soft, nontender to palpation, no guarding, no appreciable organomegaly Ext: no gross muscle atrophy, no edema, no contractures Neuro: CN II-XI grossly intact, no focal neuro deficits Psych: Alert, oriented, appropriate affect - Labs CBC & Chem 7: 03/26/19 14:45 03/26/19 14:45 Labs: Abnormal Lab Results - Last 24 Hours (Table) 03/25/19 03/25/19 03/26/19 Range/Units 22:41 22:41 00:03 RBC 3.30 L (3.80-5.40) m/uL Hgb 7.3 L (11.4-16.0) gm/dL Hct 24.1 L (34.0-46.0) % MCV 72.9 L (80.0-100.0) fL MCH 22.1 L (25.0-35.0) pg MCHC 30.4 L (31.0-37.0) g/dL RDW 16.3 H (11.5-15.5) % BUN 34 H (7-17) mg/dL Creatinine 1.70 H (0.52-1.04) mg/dL Glucose 131 H (74-99) mg/dL POC Glucose (mg/dL) (75-99) mg/dL Calcium 7.4 L (8.4-10.2) mg/dL Iron (50-170) ug/dL Iron Saturation (12.00-45.00) Ferritin (10.0-291.0) ng/mL Total Protein 5.7 L (6.3-8.2) g/dL Crossmatch See Detail 03/26/19 03/26/19 03/26/19 Range/Units 12:18 14:45 14:45 RBC (3.80-5.40) m/uL Hgb 9.1 L D (11.4-16.0) gm/dL Hct 28.2 L (34.0-46.0) % MCV 74.2 L (80.0-100.0) fL MCH 24.0 L (25.0-35.0) pg MCHC (31.0-37.0) g/dL RDW 16.4 H (11.5-15.5) % BUN 30 H (7-17) mg/dL Creatinine 1.69 H (0.52-1.04) mg/dL Glucose 130 H (74-99) mg/dL POC Glucose (mg/dL) 146 H (75-99) mg/dL Calcium 7.4 L (8.4-10.2) mg/dL Iron (50-170) ug/dL Iron Saturation (12.00-45.00) Ferritin (10.0-291.0) ng/mL Total Protein (6.3-8.2) g/dL Crossmatch 03/26/19 03/26/19 03/26/19 Range/Units 14:45 18:18 20:32 RBC (3.80-5.40) m/uL Hgb (11.4-16.0) gm/dL Hct (34.0-46.0) % MCV (80.0-100.0) fL MCH (25.0-35.0) pg MCHC (31.0-37.0) g/dL RDW (11.5-15.5) % BUN (7-17) mg/dL Creatinine (0.52-1.04) mg/dL Glucose (74-99) mg/dL POC Glucose (mg/dL) 137 H 215 H (75-99) mg/dL Calcium (8.4-10.2) mg/dL Iron 40 L (50-170) ug/dL Iron Saturation 10.34 L (12.00-45.00) Ferritin 7.5 L (10.0-291.0) ng/mL Total Protein (6.3-8.2) g/dL Crossmatch Assessment and Plan Assessment: Syncopal episode with fall -Telemetry, obtain echocardiogram - PT/OT - fall precuations - orthostatic vitals Anemia, severe iron deficiency -Ferritin 7.5 -Start IV iron, s/p 2 untis prbc -Consult Heme - Fecal occult ordered but not yet received - will need IV iron and EGD/Colon Chronic kidney disease stage III - appears near baseline - avoid additional nephrotoxic agents - follow BMP Diabetes mellitus type 2 -Long-acting insulin along with sliding scale -Follow blood sugars Chronic conditions Diastolic congestive heart failure, currently compensated Hypertension, controlled Dyslipidemia Memory impairment DVT prophylaxis: SCDs Discussed with: Patient, nursing Anticipated discharge: 1-[address]: A total of 35 minutes was spent on the care of this complex patient more than 50% of the time was spent in counseling and care coordination.
[2019-03-26] MEDS ORDERED: SODIUM FERRIC GLUCONAT-SUCROSE 125 MG in SODIUM CHLORIDE 0.9% 100 ML IVPB ONE (22:00)
[2019-03-27] MEDS: LEVOTHYROXINE 50 MCG TAB PO SCH (04:48)
[2019-03-27 07:15] LABS: Glucose,Whole Blood 142 mg/dL (75-99)
--- NOTE | 2019-03-27 07:32 | ECHOF ---
Referral Reason:syncope MEASUREMENTS -------- HEIGHT: 167.6 cm WEIGHT: 133.8 kg BP: RVIDd: 2.3 cm (< 3.3) IVSd: 1.2 cm (0.6 - 1.1) LVIDd: 4.6 cm (3.9 - 5.3) LVPWd: 1.2 cm (0.6 - 1.1) IVSs: 1.6 cm LVIDs: 2.2 cm LVPWs: 1.9 cm LAESV Index (A-L): 26.34 ml/m Ao Diam: 2.8 cm (2.0 - 3.7) AV Cusp: 1.9 cm (1.5 - 2.6) LA Diam: 3.4 cm (2.7 - 3.8) MV EXCURSION: 18.742 mm (> 18.000) MV EF SLOPE: 108 mm/s (70 - 150) EPSS: 0.4 cm MV E Jarek: 1.02 m/s MV DecT: 311 ms MV A Jarek: 1.01 m/s MV E/A Ratio: 1.00 RAP: 5.00 mmHg RVSP: 14.52 mmHg FINDINGS -------- Sinus rhythm with extra systolic beats. This was a technically adequate study. The left ventricular size is normal. There is mild concentric left ventricular hypertrophy. Overa ll left ventricular systolic function is normal with, an EF between 55 - 60 %. The diastolic fillin g pattern is normal for the age of the patient 10.50. The right ventricle is normal in size. Normal LA size by volume 22+/-6 ml/m2. The right atrial size is normal. Interatrial and interventricular septum intact. There is mild aortic valve sclerosis. The mitral valve leaflets are mildly thickened. There is trace mitral regurgitation. The tricuspid valve appears structurally normal. Trace tricuspid regurgitation present. Right gaudencio tricular systolic pressure is normal at < 35 mmHg. The pulmonic valve was not well visualized. There is no pulmonic regurgitation present. The aortic root size is normal. Normal inferior vena cava with normal inspiratory collapse consistent with estimated right atrial pre ssure of 5 mmHg. There is no pericardial effusion. CONCLUSIONS -------- 1. Sinus rhythm with extra systolic beats. 2. This was a technically adequate study. 3. The left ventricular size is normal. 4. There is mild concentric left ventricular hypertrophy. 5. Overall left ventricular systolic function is normal with, an EF between 55 - 60 %. 6. The diastolic filling pattern is normal for the age of the patient 10.50 7. Normal LA size by volume 22+/-6 ml/m2. 8. There is mild aortic valve sclerosis. 9. The mitral valve leaflets are mildly thickened. 10. There is trace mitral regurgitation. 11. The tricuspid valve appears structurally normal. 12. Trace tricuspid regurgitation present. 13. Right ventricular systolic pressure is normal at < 35 mmHg. 14. There is no pulmonic regurgitation present. 15. The aortic root size is normal. 16. Normal inferior vena cava with normal inspiratory collapse consistent with estimated right atrial pressure of 5 mmHg. 17. There is no pericardial effusion. EXPLOITATION ANALYST: Justine Pascual RDCS
[2019-03-27] MEDS: ATORVASTATIN 10 MG TAB PO SCH (08:15)
[2019-03-27] MEDS: ISOSORBIDE MONONITRATE ER 30 MG TAB.ER.24H PO SCH (08:15)
[2019-03-27] MEDS: GABAPENTIN 100 MG CAP PO SCH ×2 (08:15→20:45)
[2019-03-27] MEDS: INSULIN ASPART (NovoLOG) 100 UNIT/ML VIAL SQ SCH ×3 (08:16→17:37)
[2019-03-27] MEDS: buPROPion SR 100 MG TABLET.ER PO SCH ×2 (08:16→20:32)
[2019-03-27 11:08] LABS: Anisocytosis Slight; HCT 28.8 % (34.0-46.0); HGB 8.9 gm/dL (11.4-16.0); Hypochromasia Marked; MCH 23.3 pg (25.0-35.0); MCV 75.2 fL (80.0-100.0); Mean Platelet Volume 7.8; Microcytosis Slight; Platelet Count 276 k/uL (150-450); Poikilocytosis Slight; RBC 3.82 m/uL (3.80-5.40); RDW 16.6 % (11.5-15.5); WBC 9.6 k/uL (3.8-10.6)
[2019-03-27 11:38] LABS: Calcium 7.4 mg/dL (8.4-10.2); Potassium 4.2 mmol/L (3.5-5.1)
--- NOTE | 2019-03-27 11:50 | P.PN ---
Subjective Progress Note Date: 03/27/19 Principal diagnosis: Syncope Patient is an 84-year-old female past medical history of hypertension, dyslipidemia, diabetes, COPD, diastolic congestive heart failure, and o steoarthritis who presented to the emergency department with complaints of syncopal episode. In the ER she underwent an extensive evaluation. Initial vital signs within normal limits. Initial laboratory analysis showed a white blood cell count 8.8, hemoglobin 7.3, creatinine 1.7, and blood glucose of 131. She is having some right shoulder pain and an x-ray was obtained which showed no acute or healing fracture or malalignment, degenerative changes, and some Crystal density disease along the tendon. Chest x-ray showed no acute findings. EKG showed PACs, CT head showed no acute abnormality but some age-related changes of atrophy. She was subsequently admitted for symptomatic anemia and syncope. She underwent an echocardiogram which showed a preserved ejection fraction and no significant valvular disease. Anemia workup revealed severe iron deficiency anemia. She received 2 units of packed red blood cells and was started on IV iron. Vitamin B12 was in the low-normal range. Hematology and oncology were consulted. Patient was not having any bowel movements to obtain a fecal occult blood. She does report some decreased oral intake as she has been so weak she has been unable to cook and prepped meals for herself. She lives alone and her daughter comes over to check on her but not as often as she wants to as she is in bad shape per the patient. Patient seen and examined at bedside. She denies any chest pain, shortness breath, nausea, vomiting, or diarrhea. She is still feeling very weak and fatigued. Objective - Vital Signs Vital signs: Vital Signs Temp 97.8 F 03/27/19 07:00 Pulse 59 L 03/27/19 07:00 Resp 03/27/19 08:00 BP 101/41 03/27/19 07:00 Pulse Ox 100 03/27/19 07:00 Intake & Output 03/26/19 03/27/19 03/27/19 18:59 06:59 18:59 Intake Total 310 100 240 Balance 310 100 240 Intake: Intake, IV Titration 100 Amount Sodium Ferric Gluconat- 100 Sucrose 125 mg In Sodium Chloride 0.9% 100 ml @ 100 mls/hr IVPB ONCE ONE Rx#:[id number] Oral 240 Blood Product 310 Rc As-3 Unit 0 [id number] Rc Pheresis As-3 Unit 310 [id number] Other: Voiding Method Bedpan Bedpan Bedpan # Voids 2 2 - Exam General: non toxic, no distress, appears at stated age, obese Derm: warm, dry Head: atraumatic, normocephalic, symmetric Eyes: EOMI, no lid lag, anicteric sclera Mouth: no lip lesion, mucus membranes moist Cardiovascular: S1S2 reg, no murmur, positive posterior tibial pulse bilateral, Lungs: Decreased breath sounds bilateral, no rhonchi, no rales , no accessory muscle use Abdominal: soft, nontender to palpation, no guarding, no appreciable organomegaly Ext: no gross muscle atrophy, no edema, no contractures Neuro: CN II-XI grossly intact, no focal neuro deficits Psych: Alert, oriented, appropriate affect - Labs CBC & Chem 7: 03/27/19 10:52 03/26/19 14:45 Labs: Abnormal Lab Results - Last 24 Hours (Table) 03/26/19 03/26/19 03/26/19 Range/Units 00:03 12:18 14:45 Hgb 9.1 L D (11.4-16.0) gm/dL Hct 28.2 L (34.0-46.0) % MCV 74.2 L (80.0-100.0) fL MCH 24.0 L (25.0-35.0) pg RDW 16.4 H (11.5-15.5) % BUN (7-17) mg/dL Creatinine (0.52-1.04) mg/dL Glucose (74-99) mg/dL POC Glucose (mg/dL) 146 H (75-99) mg/dL Calcium (8.4-10.2) mg/dL Iron (50-170) ug/dL Iron Saturation (12.00-45.00) Ferritin (10.0-291.0) ng/mL Crossmatch See Detail 03/26/19 03/26/19 03/26/19 Range/Units 14:45 14:45 18:18 Hgb (11.4-16.0) gm/dL Hct (34.0-46.0) % MCV (80.0-100.0) fL MCH (25.0-35.0) pg RDW (11.5-15.5) % BUN 30 H (7-17) mg/dL Creatinine 1.69 H (0.52-1.04) mg/dL Glucose 130 H (74-99) mg/dL POC Glucose (mg/dL) 137 H (75-99) mg/dL Calcium 7.4 L (8.4-10.2) mg/dL Iron 40 L (50-170) ug/dL Iron Saturation 10.34 L (12.00-45.00) Ferritin 7.5 L (10.0-291.0) ng/mL Crossmatch 03/26/19 03/27/19 03/27/19 Range/Units 20:32 07:03 10:52 Hgb 8.9 L (11.4-16.0) gm/dL Hct 28.8 L (34.0-46.0) % MCV 75.2 L (80.0-100.0) fL MCH 23.3 L (25.0-35.0) pg RDW 16.6 H (11.5-15.5) % BUN (7-17) mg/dL Creatinine (0.52-1.04) mg/dL Glucose (74-99) mg/dL POC Glucose (mg/dL) 215 H 142 H (75-99) mg/dL Calcium (8.4-10.2) mg/dL Iron (50-170) ug/dL Iron Saturation (12.00-45.00) Ferritin (10.0-291.0) ng/mL Crossmatch Assessment and Plan Assessment: Syncopal episode with fall -Telemetry without significant events -Echocardiogram with preserved ejection fraction - PT/OT-severely unsteady gait - fall precuations - orthostatic vitals or within normal limits as able to obtain Anemia, severe iron deficiency -Ferritin 7.5 - IV iron, s/p 2 units prbc -Await rec Dr. Staley - Fecal occult ordered but not yet received - will need IV iron and EGD/Colon likely as outpatient Generalized weakness likely secondary to above -PT/OT -Fall precautions Chronic kidney disease stage III - appears near baseline - avoid additional nephrotoxic agents - follow BMP - resume home lasix and cozar Diabetes mellitus type 2 -Long-acting insulin on hold -sliding scale -Follow blood sugars Chronic conditions Diastolic congestive heart failure, currently compensated Hypertension, controlled Dyslipidemia Memory impairment Hypothyroidim DVT prophylaxis: SCDs Discussed with: Patient, nursing Anticipated discharge: 1-[address]: SNF A total of 35 minutes was spent on the care of this complex patient more than 50% of the time was spent in counseling and care coordination.
[2019-03-27] MEDS ORDERED: SODIUM FERRIC GLUCONAT-SUCROSE 125 MG in SODIUM CHLORIDE 0.9% 100 ML IVPB ONE (12:00)
[2019-03-27 12:06] LABS: Glucose,Whole Blood 154 mg/dL (75-99)
--- NOTE | 2019-03-27 15:57 | P.CONS ---
History of Present Illness - Reason for Consult Consult date: 03/27/19 iron deficient anemia Requesting physician: Vannesa Pastor - Chief Complaint weakness, syncopy - History of Present Illness Mrs. Mann is a very pleasant 84-year-old female, mildly confused during our conversation but, she was able to give me quit a few details of her history. She's been anemic before and she took "shots" finally described B12 injections. Patient has oral iron on her medication list but, she states that she has not taken oral iron for quite some time now. She denies any bleeding, nose bleeds, coughing up of blood, hematuria, black or bloody stool. Patient had a partial rou en y about 20-30 years ago in [facility]. She has a hi story of cervical/uterine cancer, no chemotherapy that she recalls, not treated locally. She states trouble getting around, from chart review she has not been eating well more recently. Review of Systems 14 point review of systems is negative except as stated in HPI Past Medical History Past Medical History: Cancer, Heart Failure, Diabetes Mellitus, GERD/Reflux, Hyperlipidemia, Hypertension, Memory Impairment, Osteoarthritis (OA), Sleep Apnea/CPAP/BIPAP, Thyroid Disorder Additional Past Medical History / Comment(s): hiatal hernia, chronic back pain, bilateral neuropathy of legs and feet, leg edema bilaterally, , , cervical and uterine cancer , ROSACEA History of Any Multi-Drug Resistant Organisms: None Reported Past Surgical History: Bariatric Surgery, Cholecystectomy, Heart Catheterization, Hernia Repair, Hysterectomy, Orthopedic Surgery Additional Past Surgical History / Comment(s): 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 Past Psychological History: Anxiety, Depression Additional Psychological History / Comment(s): Pt lives alone. She has a daughter who is very helpful. Her vonda assists her and manages pt's meds and drives pt to appts. Pt uses a cane to ambulate. Smoking Status: Never smoker Past Alcohol Use History: None Reported Past Drug Use History: None Reported - Past Family History Father Family Medical History: Cancer Additional Family Medical History / Comment(s): Father of prostate cancer at age 88 yrs. Mother Family Medical History: Cancer, Diabetes Mellitus, Myocardial Infarction (NM) Additional Family Medical History / Comment(s): Mother at age 77yrs. Brother(s) Family Medical History: Blood Disorder, CVA/TIA, Diabetes Mellitus, Myocardial Infarction (NM) Daughter(s) Family Medical History: Cancer Son(s) Family Medical History: No Reported History Medications and Allergies Home Medications Medication Instructions Recorded Confirmed Type Atorvastatin [Lipitor] 10 mg PO QAM 08/01/15 03/25/19 History DULoxetine HCL [Cymbalta] 60 mg PO 08/01/15 03/25/19 History Desloratadine 5 mg PO QAM 08/01/15 03/25/19 History Donepezil HCl [Aricept] 10 mg PO 08/01/15 03/25/19 History Gabapentin [Neurontin] 200 mg PO BID 08/01/15 03/25/19 History Mirabegron [Myrbetriq] 50 mg PO QAM 08/01/15 03/25/19 History Pantoprazole [Protonix] 40 mg PO QAM 08/01/15 03/25/19 History buPROPion HCL [Wellbutrin SR] 200 mg PO BID 08/01/15 03/25/19 History Aspirin EC [Ecotrin Low Dose] 81 mg PO QAM 06/17/16 03/25/19 History Isosorbide Mononitrate ER [Imdur] 30 mg PO QAM 06/17/16 03/25/19 History Insulin Glargine,Hum.rec.anlog 50 unit SQ 12/11/16 03/25/19 History [Lantus Solostar] Losartan [Cozaar] 25 mg PO QA 12/11/16 03/25/19 History Ascorbic Acid [Vitamin C] 500 mg PO DAILY 03/25/19 03/25/19 History Cyanocobalamin (Vitamin B-12) 2,500 mcg PO DAILY 03/25/19 03/25/19 History [Vitamin B-12] Ergocalciferol [Vitamin D2] 50,000 unit PO 03/25/19 03/25/19 History Ferrous Sulfate [Feosol] 325 mg PO DAILY 03/25/19 03/25/19 History Furosemide [Lasix] 40 mg PO DAILY 03/25/19 03/25/19 History HYDROcodone/APAP 5-325MG [[place] 1 tab PO BID PRN 03/25/19 03/25/19 History 5-325] Levothyroxine Sodium [Synthroid] 175 mcg PO MOTUWETHFR 03/25/19 03/25/19 History Metoprolol Succinate (ER) [Toprol 25 mg PO DAILY 03/25/19 03/25/19 History Xl] Allergies Allergy/AdvReac Type Severity Reaction Status Date / Time Penicillins Allergy Rash/Hives Verified 03/25/19 23:25 Sulfa (Sulfonamide Allergy Rash/Hives Verified 03/25/19 23:25 Antibiotics) Physical Exam Vitals: Vital Signs Temp Pulse Resp BP Pulse Ox 03/27/19 08:00 17 03/27/19 07:00 97.8 F 59 L 17 101/41 100 03/27/19 01:50 98.6 F 61 18 117/54 99 03/26/19 19:37 98.5 F 61 16 101/51 94 L 03/26/19 17:40 98.0 F 67 20 110/55 96 Intake and Output 03/27/19 03/27/19 03/27/19 06:59 14:59 22:59 Intake Total 240 Balance 240 Intake: Oral 240 Other: Voiding Method Bedpan # Voids 2 - Constitutional General appearance: cooperative, no acute distress, obese - EENT Eyes: anicteric sclerae, EOMI ENT: hearing grossly normal, normal oropharynx - Neck Neck: no lymphadenopathy - Respiratory Respiratory: bilateral: CTA - Cardiovascular Rhythm: regular Heart sounds: normal: S1, S2 Abnormal Heart Sounds: no systolic murmur, no diastolic murmur, no rub, no S3 Gallop, no S4 Gallop, no click, no other leg Peripheral Edema: bilateral: None - Gastrointestinal General gastrointestinal: no absent bowel sounds, no decreased bowel sounds, no distended, no hepatomegaly, no hyperactive bowel sounds, normal bowel sounds, no organomegaly, no rigid, no scaphoid, soft, no splenomegaly, no tenderness, no umbilical hernia, no ventral hernia - Integumentary Integumentary: pale - Neurologic Neurologic: CNII-XII intact - Musculoskeletal Musculoskeletal: generalized weakness - Psychiatric Psychiatric: A&O x's 3, appropriate affect Results CBC & Chem 7: 03/27/19 10:52 03/27/19 10:52 Labs: Abnormal Lab Results - Last 24 Hours (Table) 03/26/19 03/26/19 03/26/19 Range/Units 14:45 18:18 20:32 Hgb (11.4-16.0) gm/dL Hct (34.0-46.0) % MCV (80.0-100.0) fL MCH (25.0-35.0) pg RDW (11.5-15.5) % BUN (7-17) mg/dL Creatinine (0.52-1.04) mg/dL Glucose (74-99) mg/dL POC Glucose (mg/dL) 137 H 215 H (75-99) mg/dL Calcium (8.4-10.2) mg/dL Iron 40 L (50-170) ug/dL Iron Saturation 10.34 L (12.00-45.00) Ferritin 7.5 L (10.0-291.0) ng/mL 03/27/19 03/27/19 03/27/19 Range/Units 07:03 10:52 10:52 Hgb 8.9 L (11.4-16.0) gm/dL Hct 28.8 L (34.0-46.0) % MCV 75.2 L (80.0-100.0) fL MCH 23.3 L (25.0-35.0) pg RDW 16.6 H (11.5-15.5) % BUN 29 H (7-17) mg/dL Creatinine 1.52 H (0.52-1.04) mg/dL Glucose 149 H (74-99) mg/dL POC Glucose (mg/dL) 142 H (75-99) mg/dL Calcium 7.4 L (8.4-10.2) mg/dL Iron (50-170) ug/dL Iron Saturation (12.00-45.00) Ferritin (10.0-291.0) ng/mL 03/27/19 Range/Units 11:55 Hgb (11.4-16.0) gm/dL Hct (34.0-46.0) % MCV (80.0-100.0) fL MCH (25.0-35.0) pg RDW (11.5-15.5) % BUN (7-17) mg/dL Creatinine (0.52-1.04) mg/dL Glucose (74-99) mg/dL POC Glucose (mg/dL) 154 H (75-99) mg/dL Calcium (8.4-10.2) mg/dL Iron (50-170) ug/dL Iron Saturation (12.00-45.00) Ferritin (10.0-291.0) ng/mL CT Scan - head: report reviewed Assessment and Plan (1) Microcytic anemia Narrative/Plan: Patient's anemia is of new onset. Labs show moderate/sever iron deficiency. Parenteral iron ordered. B12 low normal, MMA ordered to evaluate for functional B12 deficiency. Patient did have an appropriate increase in her hemoglobin from 7.3-9.3 status post 2 units. No further transfusion as this time States she has had EGD and colonoscopy recently, on chart review I do see Dr. Driscoll's name but, no procedure notes. Pt did not seem interested in GI work up at this time. Could be done as outpatient if there is no evidence of acute bleeding. Occult is pending Current Visit: Yes Status: Acute Priority: High Code(s): D50.9 - IRON DEFICIENCY ANEMIA, UNSPECIFIED SNOMED Code(s): 197374488
[2019-03-27 17:46] LABS: Glucose,Whole Blood 184 mg/dL (75-99)
[2019-03-27] MEDS: DULoxetine HCL 60 MG CAPSULE.DR PO SCH (20:31)
[2019-03-27] MEDS: DONEPEZIL 10 MG TAB PO SCH (20:32)
[2019-03-28] MEDS: LEVOTHYROXINE 50 MCG TAB PO SCH (05:23)
[2019-03-28 07:12] LABS: Glucose,Whole Blood 143 mg/dL (75-99)
[2019-03-28 07:30] LABS: Anisocytosis Slight; HCT 27.9 % (34.0-46.0); HGB 8.7 gm/dL (11.4-16.0); Hypochromasia Marked; MCH 23.4 pg (25.0-35.0); MCHC 31.1 g/dL (31.0-37.0); MCV 75.3 fL (80.0-100.0); Mean Platelet Volume 8.2; Microcytosis Slight; Platelet Count 271 k/uL (150-450); Poikilocytosis Slight; RDW 16.7 % (11.5-15.5); WBC 10.2 k/uL (3.8-10.6)
[2019-03-28 07:42] LABS: Calcium 7.2 mg/dL (8.4-10.2); Potassium 4.5 mmol/L (3.5-5.1)
[2019-03-28] MEDS: GABAPENTIN 100 MG CAP PO SCH ×2 (08:00→21:38)
[2019-03-28] MEDS: ISOSORBIDE MONONITRATE ER 30 MG TAB.ER.24H PO SCH (08:01)
[2019-03-28] MEDS: buPROPion SR 100 MG TABLET.ER PO SCH ×2 (08:01→21:38)
[2019-03-28] MEDS: ATORVASTATIN 10 MG TAB PO SCH (08:01)
[2019-03-28] MEDS: LOSARTAN 25 MG TAB PO SCH (08:01)
[2019-03-28] MEDS: FUROSEMIDE 40 MG TAB PO SCH (08:01)
[2019-03-28] MEDS: INSULIN ASPART (NovoLOG) 100 UNIT/ML VIAL SQ SCH ×3 (08:02→17:30)
--- NOTE | 2019-03-28 09:24 | P.PN ---
Subjective Progress Note Date: 03/28/19 Principal diagnosis: Syncope Syncope Patient is an 84-year-old female past medical history of hypertension, dyslipidemia, diabetes, COPD, diastolic congestive heart failure, and osteoarthritis who presented to the emergency department with complaints of syncopal episode. In the ER she underwent an extensive evaluation. Initial vital signs within normal limits. Initial laboratory analysis showed a white blood cell count 8.8, hemoglobin 7.3, creatinine 1.7, and blood glucose of 131. She is having some right shoulder pain and an x-ray was obtained which showed no acute or healing fracture or malalignment, degenerative changes, and some Crystal density disease along the tendon. Chest x-ray showed no acute findings. EKG showed PACs, CT head showed no acute abnormality but some age-related changes of atrophy. She was subsequently admitted for symptomatic anemia and syncope. She underwent an echocardiogram which showed a preserved ejection fraction and no significant valvular disease. Anemia workup revealed severe iron deficiency anemia. She received 2 units of packed red blood cells and was started on IV iron. Vitamin B12 was in the low-normal range. Hematology and oncology were consulted. Patient was not having any bowel movements to obtain a fecal occult blood. She does report some decreased oral intake as she has been so weak she has been unable to cook and prepped meals for herself. She lives alone and her daughter comes over to check on her but not as often as she wants to as she is in bad shape per the patient. 03/28/2019: She feels okay today, no chest pain no abdominal pain no nausea no vomiting, no gross bleeding. No melena nor hematochezia. Objective - Vital Signs Vital signs: Vital Signs Temp 98.5 F 03/28/19 07:00 Pulse 68 03/28/19 07:00 Resp 17 03/28/19 07:00 BP 129/71 03/28/19 07:00 Pulse Ox 96 03/28/19 07:00 Intake & Output 03/27/19 03/28/19 03/28/19 18:59 06:59 18:59 Intake Total 240 Balance 240 Intake: Oral 240 Other: Voiding Method Bedpan Bedside Commode # Voids 1 1 # Bowel Movements 1 - Labs CBC & Chem 7: 03/28/19 06:16 03/28/19 06:16 Labs: Abnormal Lab Results - Last 24 Hours (Table) 03/27/19 03/27/19 03/27/19 Range/Units 10:52 10:52 11:55 RBC (3.80-5.40) m/uL Hgb 8.9 L (11.4-16.0) gm/dL Hct 28.8 L (34.0-46.0) % MCV 75.2 L (80.0-100.0) fL MCH 23.3 L (25.0-35.0) pg RDW 16.6 H (11.5-15.5) % BUN 29 H (7-17) mg/dL Creatinine 1.52 H (0.52-1.04) mg/dL Glucose 149 H (74-99) mg/dL POC Glucose (mg/dL) 154 H (75-99) mg/dL Calcium 7.4 L (8.4-10.2) mg/dL 03/27/19 03/28/19 03/28/19 Range/Units 17:34 06:16 06:16 RBC 3.70 L (3.80-5.40) m/uL Hgb 8.7 L (11.4-16.0) gm/dL Hct 27.9 L (34.0-46.0) % MCV 75.3 L (80.0-100.0) fL MCH 23.4 L (25.0-35.0) pg RDW 16.7 H (11.5-15.5) % BUN 24 H (7-17) mg/dL Creatinine 1.33 H (0.52-1.04) mg/dL Glucose 124 H (74-99) mg/dL POC Glucose (mg/dL) 184 H (75-99) mg/dL Calcium 7.2 L (8.4-10.2) mg/dL 03/28/19 Range/Units 07:10 RBC (3.80-5.40) m/uL Hgb (11.4-16.0) gm/dL Hct (34.0-46.0) % MCV (80.0-100.0) fL MCH (25.0-35.0) pg RDW (11.5-15.5) % BUN (7-17) mg/dL Creatinine (0.52-1.04) mg/dL Glucose (74-99) mg/dL POC Glucose (mg/dL) 143 H (75-99) mg/dL Calcium (8.4-10.2) mg/dL Assessment and Plan Plan: A/P Syncopal episode with fall -Telemetry without significant events -Echocardiogram with preserved ejection fraction - PT/OT-severely unsteady gait - fall precuations Anemia, severe iron deficiency -Ferritin 7.5 - IV iron, s/p 2 units prbc -Appreciate input from Dr Tate , outpatient workup. Generalized weakness likely secondary to above -PT/OT -Fall precautions Chronic kidney disease stage III - appears near baseline, serum creatinine 1.3 today from 1.5 yesterday. - avoid additional nephrotoxic agents - home lasix and cozar Diabetes mellitus type 2 with hyperglycemia -Long-acting insulin on hold -Continue sliding scale -Follow blood sugars Chronic conditions Chronic Diastolic congestive heart failure, without exacerbation Essential Hypertension, controlled Dyslipidemia Memory impairment, without behavioral changes Hypothyroidim DVT prophylaxis: SCDs Discussed with: Patient and case management Anticipated discharge: 03/30/[address]: SN[facility]
[2019-03-28 12:02] LABS: Glucose,Whole Blood 257 mg/dL (75-99)
[2019-03-28] MEDS: ACETAMINOPHEN TAB 325 MG TAB PO PRN (16:33)
--- NOTE | 2019-03-28 16:43 | P.PN ---
Subjective Progress Note Date: 03/28/19 Principal diagnosis: anemia In f/u today pt has ate all of her lunch, she is in good spiritis, feels overall well, no c/o, denies any bleeding Objective - Vital Signs Vital signs: Vital Signs Temp 98.7 F 03/28/19 15:00 Pulse 78 03/28/19 15:00 Resp 12 03/28/19 15:00 BP 117/61 03/28/19 15:00 Pulse Ox 97 03/28/19 15:00 Intake & Output 03/27/19 03/28/19 03/28/19 18:59 06:59 18:59 Intake Total 240 Balance 240 Intake: Oral 240 Other: Voiding Method Bedpan Bedside Commode Bedside Commode # Voids 1 1 2 # Bowel Movements 1 - Constitutional General appearance: Present: cooperative, no acute distress, obese - EENT Eyes: Present: anicteric sclerae, EOMI ENT: Present: hearing grossly normal - Respiratory Respiratory: bilateral: CTA - Cardiovascular Heart sounds: normal: S1, S2 - Peripheral edema leg Peripheral Edema: bilateral: None - Gastrointestinal General gastrointestinal: Present: normal bowel sounds, soft - Neurologic Neurologic: Present: CNII-XII intact - Musculoskeletal Musculoskeletal: Present: generalized weakness - Psychiatric Psychiatric: Present: A&O x's 3, appropriate affect, intact judgment & insight - Labs CBC & Chem 7: 03/28/19 06:16 03/28/19 06:16 Labs: Abnormal Lab Results - Last 24 Hours (Table) 03/27/19 03/28/19 03/28/19 Range/Units 17:34 06:16 06:16 RBC 3.70 L (3.80-5.40) m/uL Hgb 8.7 L (11.4-16.0) gm/dL Hct 27.9 L (34.0-46.0) % MCV 75.3 L (80.0-100.0) fL MCH 23.4 L (25.0-35.0) pg RDW 16.7 H (11.5-15.5) % BUN 24 H (7-17) mg/dL Creatinine 1.33 H (0.52-1.04) mg/dL Glucose 124 H (74-99) mg/dL POC Glucose (mg/dL) 184 H (75-99) mg/dL Calcium 7.2 L (8.4-10.2) mg/dL 03/28/19 03/28/19 Range/Units 07:10 12:00 RBC (3.80-5.40) m/uL Hgb (11.4-16.0) gm/dL Hct (34.0-46.0) % MCV (80.0-100.0) fL MCH (25.0-35.0) pg RDW (11.5-15.5) % BUN (7-17) mg/dL Creatinine (0.52-1.04) mg/dL Glucose (74-99) mg/dL POC Glucose (mg/dL) 143 H 257 H (75-99) mg/dL Calcium (8.4-10.2) mg/dL Assessment and Plan (1) Microcytic anemia Narrative/Plan: Patient's anemia is of new onset. Labs show moderate/sever iron deficiency. Parenteral iron ordered. B12 low normal, MMA pending. Patient did have an appropriate increase in her hemoglobin from 7.3-9.3 status post 2 units. Hgb 8.7 today, stable, no further transfusion as this time Occult negative. Paraproteinemia work up ordered. GI work up recommended. Current Visit: Yes Status: Acute Priority: High Code(s): D50.9 - IRON DEFICIENCY ANEMIA, UNSPECIFIED SNOMED Code(s): 158532261
[2019-03-28 17:00] LABS: Glucose,Whole Blood 149 mg/dL (75-99)
[2019-03-28 20:14] LABS: Protein, Total 4.9 g/dL (6.2-8.2)
[2019-03-28 20:33] LABS: Glucose,Whole Blood 170 mg/dL (75-99)
[2019-03-28] MEDS: DONEPEZIL 10 MG TAB PO SCH (21:38)
[2019-03-28] MEDS: DULoxetine HCL 60 MG CAPSULE.DR PO SCH (21:38)
[2019-03-29] MEDS: LEVOTHYROXINE 50 MCG TAB PO SCH (05:32)
[2019-03-29 07:22] LABS: Glucose,Whole Blood 152 mg/dL (75-99)
[2019-03-29] MEDS: LOSARTAN 25 MG TAB PO SCH (08:26)
[2019-03-29] MEDS: buPROPion SR 100 MG TABLET.ER PO SCH ×2 (08:26→20:41)
[2019-03-29] MEDS: GABAPENTIN 100 MG CAP PO SCH ×2 (08:26→20:40)
[2019-03-29] MEDS: ATORVASTATIN 10 MG TAB PO SCH (08:26)
[2019-03-29] MEDS: FUROSEMIDE 40 MG TAB PO SCH (08:26)
[2019-03-29] MEDS: INSULIN ASPART (NovoLOG) 100 UNIT/ML VIAL SQ SCH ×3 (08:27→17:44)
[2019-03-29] MEDS: ISOSORBIDE MONONITRATE ER 30 MG TAB.ER.24H PO SCH (08:27)
[2019-03-29 08:59] LABS: Calcium 7.1 mg/dL (8.4-10.2); Potassium 4.5 mmol/L (3.5-5.1); Total Bilirubin 0.7 mg/dL (0.2-1.3); Total Protein 5.2 g/dL (6.3-8.2)
[2019-03-29 09:16] LABS: Anisocytosis Slight; Basophils # (A) 0.1 k/uL (0-0.2); Basophils % (A) 1 %; Eosinophils # (A) 0.3 k/uL (0-0.7); Eosinophils % (A) 3 %; HCT 27.2 % (34.0-46.0); HGB 8.5 gm/dL (11.4-16.0); Hypochromasia Marked; Lymphocytes # (A) 1.6 k/uL (1.0-4.8); Lymphocytes % (A) 16 %; MCH 23.6 pg (25.0-35.0); MCHC 31.3 g/dL (31.0-37.0); MCV 75.3 fL (80.0-100.0); Mean Platelet Volume 9.3; Microcytosis Slight; Monocytes # (A) 0.7 k/uL (0-1.0); Monocytes % (A) 7 %; Neutrophils # (A) 7.3 k/uL (1.3-7.7); Neutrophils % (A) 73 %; Platelet Count 260 k/uL (150-450); Poikilocytosis Moderate; RBC 3.62 m/uL (3.80-5.40); RDW 17.5 % (11.5-15.5); WBC 10.1 k/uL (3.8-10.6)
[2019-03-29 09:25] LABS: Free Kappa Lt Chain Qnt, Serum 1.51 mg/dL (0.33-1.94)
[2019-03-29 10:32] LABS: Albumin 2.78 g/dL (3.80-4.90)
[2019-03-29 11:52] LABS: Glucose,Whole Blood 164 mg/dL (75-99)
--- NOTE | 2019-03-29 15:18 | P.PN ---
Subjective Progress Note Date: 03/29/19 Principal diagnosis: Iron deficient anemia In f/u today pt continues to feel well, she has some of her energy back, no c/o, denies any bleeding Objective - Vital Signs Vital signs: Vital Signs Temp 98.6 F 03/29/19 14:35 Pulse 50 L 03/29/19 14:35 Resp 16 03/29/19 14:35 BP 121/54 03/29/19 14:35 Pulse Ox 96 03/29/19 14:35 Intake & Output 03/28/19 03/29/19 03/29/19 18:59 06:59 18:59 Intake Total 1012 Output Total 800 Balance -800 1012 Intake: Oral 1012 Output: Urine 800 Other: Voiding Method Bedside Commode Bedside Commode # Voids 2 - Constitutional General appearance: Present: cooperative, no acute distress, obese - EENT Eyes: Present: anicteric sclerae, EOMI ENT: Present: hearing grossly normal - Respiratory Details: Respirations even and unlabored - Cardiovascular Details: Skin warm and dry - Neurologic Neurologic: Present: CNII-XII intact - Musculoskeletal Musculoskeletal: Present: strength equal bilaterally - Psychiatric Psychiatric: Present: A&O x's 3, appropriate affect, intact judgment & insight - Labs CBC & Chem 7: 03/29/19 07:34 03/29/19 07:34 Labs: Abnormal Lab Results - Last 24 Hours (Table) 03/28/19 03/28/19 03/28/19 Range/Units 06:16 16:59 20:32 RBC (3.80-5.40) m/uL Hgb (11.4-16.0) gm/dL Hct (34.0-46.0) % MCV (80.0-100.0) fL MCH (25.0-35.0) pg RDW (11.5-15.5) % BUN (7-17) mg/dL Creatinine (0.52-1.04) mg/dL Glucose (74-99) mg/dL POC Glucose (mg/dL) 149 H 170 H (75-99) mg/dL Calcium (8.4-10.2) mg/dL Total Protein (6.3-8.2) g/dL Total Protein (PEP) 4.9 L (6.2-8.2) g/dL Albumin (3.5-5.0) g/dL Albumin (PEP) 2.78 L (3.80-4.90) g/dL Gamma Globulins 0.50 L (0.70-1.50) g/dL 03/29/19 03/29/19 03/29/19 Range/Units 07:21 07:34 07:34 RBC 3.62 L (3.80-5.40) m/uL Hgb 8.5 L (11.4-16.0) gm/dL Hct 27.2 L (34.0-46.0) % MCV 75.3 L (80.0-100.0) fL MCH 23.6 L (25.0-35.0) pg RDW 17.5 H (11.5-15.5) % BUN 22 H (7-17) mg/dL Creatinine 1.18 H (0.52-1.04) mg/dL Glucose 140 H (74-99) mg/dL POC Glucose (mg/dL) 152 H (75-99) mg/dL Calcium 7.1 L (8.4-10.2) mg/dL Total Protein 5.2 L (6.3-8.2) g/dL Total Protein (PEP) (6.2-8.2) g/dL Albumin 3.0 L (3.5-5.0) g/dL Albumin (PEP) (3.80-4.90) g/dL Gamma Globulins (0.70-1.50) g/dL 03/29/19 Range/Units 11:50 RBC (3.80-5.40) m/uL Hgb (11.4-16.0) gm/dL Hct (34.0-46.0) % MCV (80.0-100.0) fL MCH (25.0-35.0) pg RDW (11.5-15.5) % BUN (7-17) mg/dL Creatinine (0.52-1.04) mg/dL Glucose (74-99) mg/dL POC Glucose (mg/dL) 164 H (75-99) mg/dL Calcium (8.4-10.2) mg/dL Total Protein (6.3-8.2) g/dL Total Protein (PEP) (6.2-8.2) g/dL Albumin (3.5-5.0) g/dL Albumin (PEP) (3.80-4.90) g/dL Gamma Globulins (0.70-1.50) g/dL Assessment and Plan (1) Microcytic anemia Current Visit: Yes Status: Acute Priority: High Code(s): D50.9 - IRON DE FICIENCY ANEMIA, UNSPECIFIED SNOMED Code(s): 814917929 (2) Iron deficiency anemia Current Visit: Yes Status: Acute Priority: Medium Code(s): D50.9 - IRON DEFICIENCY ANEMIA, UNSPECIFIED SNOMED Code(s): 95355293 (3) Chronic kidney disease Current Visit: Yes Status: Chronic Priority: Medium Code(s): N18.9 - CHRONIC KIDNEY DISEASE, UNSPECIFIED SNOMED Code(s): 079432427 Plan: Patient has received parenteral iron supplementation. Recheck iron stores and one month. Hemoglobin today is stable. Continue to follow CBC in the outpatient setting. Referral back to Hematology if there are any acute changes. Recommendation is for GI workup. Follow-up with Nephrology. Patient may benefit from erythropoietin supplementation-epo level is still pending Light chains within normal limits, no monoclonal paraprotein.
--- NOTE | 2019-03-29 17:06 | P.PN ---
Subjective Progress Note Date: 03/29/19 (delayed charting seen at 1015) Principal diagnosis: Syncope Patient is an 84-year-old female past medical history of hypertension, dyslipidemia, diabetes, COPD, diastolic congestive heart failure, and osteoarthritis who presented to the emergency department with complaints of syncopal episode. In the ER she underwent an extensive evaluation. Initial vital signs within normal limits. Initial laboratory analysis showed a white blood cell count 8.8, hemoglobin 7.3, creatinine 1.7, and blood glucose of 131. She is having some right shoulder pain and an x-ray was obtained which showed no acute or healing fracture or malalignment, degenerative changes, and some Cr ystal density disease along the tendon. Chest x-ray showed no acute findings. EKG showed PACs, CT head showed no acute abnormality but some age-related changes of atrophy. She was subsequently admitted for symptomatic anemia and syncope. She underwent an echocardiogram which showed a preserved ejection fraction and no significant valvular disease. Anemia workup revealed severe iron deficiency anemia. She received 2 units of packed red blood cells and was started on IV iron. Vitamin B12 was in the low-normal range. Hematology was consulted. Patient was not having any bowel movements to obtain a fecal occult blood. She does report some decreased oral intake as she has been so weak she has been unable to cook and prepped meals for herself. She lives alone and her daughter comes over to check on her but not as often as she wants to as she is in bad shape per the patient. Heme recommended repeat ferritin levels in 1 month. Also recommended GI evaluation but patient not interested at this point in time, HgB stable and FOB negative so will follow-up as outpatient. Patient agreeable for SNF, EOP level pending if low may need nephrology evaluation. Patient seen and examined at bedside. She denies any chest pain, shortness breath, nausea, vomiting, or diarrhea. She is still feeling very weak and fatigued. Objective - Vital Signs Vital signs: Vital Signs Temp 98.6 F 03/29/19 14:35 Pulse 50 L 03/29/19 14:35 Resp 16 03/29/19 14:35 BP 121/54 03/29/19 14:35 Pulse Ox 96 03/29/19 14:35 Intake & Output 03/28/19 03/29/19 03/29/19 18:59 06:59 18:59 Intake Total 1012 Output Total 800 600 Balance -800 412 Intake: Oral 1012 Output: Urine 800 600 Other: Voiding Method Bedside Commode Bedside Commode # Voids 2 - Exam General: non toxic, no distress, appears at stated age, obese Derm: warm, dry Head: atraumatic, normocephalic, symmetric Eyes: EOMI, no lid lag, anicteric sclera Mouth: no lip lesion, mucus membranes moist Cardiovascular: S1S2 reg, no murmur, positive posterior tibial pulse bilateral, Lungs: Decreased breath sounds bilateral, no rhonchi, no rales , no accessory muscle use Abdominal: soft, nontender to palpation, no guarding, no appreciable organomegaly Ext: no gross muscle atrophy, no edema, no contractures Neuro: CN II-XI grossly intact, no focal neuro deficits Psych: Alert, oriented, appropriate affect - Labs CBC & Chem 7: 03/29/19 07:34 03/29/19 07:34 Labs: Abnormal Lab Results - Last 24 Hours (Table) 03/28/19 03/28/19 03/28/19 Range/Units 06:16 16:59 20:32 RBC (3.80-5.40) m/uL Hgb (11.4-16.0) gm/dL Hct (34.0-46.0) % MCV (80.0-100.0) fL MCH (25.0-35.0) pg RDW (11.5-15.5) % BUN (7-17) mg/dL Creatinine (0.52-1.04) mg/dL Glucose (74-99) mg/dL POC Glucose (mg/dL) 149 H 170 H (75-99) mg/dL Calcium (8.4-10.2) mg/dL Total Protein (6.3-8.2) g/dL Total Protein (PEP) 4.9 L (6.2-8.2) g/dL Albumin (3.5-5.0) g/dL Albumin (PEP) 2.78 L (3.80-4.90) g/dL Gamma Globulins 0.50 L (0.70-1.50) g/dL 03/29/19 03/29/19 03/29/19 Range/Units 07:21 07:34 07:34 RBC 3.62 L (3.80-5.40) m/uL Hgb 8.5 L (11.4-16.0) gm/dL Hct 27.2 L (34.0-46.0) % MCV 75.3 L (80.0-100.0) fL MCH 23.6 L (25.0-35.0) pg RDW 17.5 H (11.5-15.5) % BUN 22 H (7-17) mg/dL Creatinine 1.18 H (0.52-1.04) mg/dL Glucose 140 H (74-99) mg/dL POC Glucose (mg/dL) 152 H (75-99) mg/dL Calcium 7.1 L (8.4-10.2) mg/dL Total Protein 5.2 L (6.3-8.2) g/dL Total Protein (PEP) (6.2-8.2) g/dL Albumin 3.0 L (3.5-5.0) g/dL Albumin (PEP) (3.80-4.90) g/dL Gamma Globulins (0.70-1.50) g/dL 03/29/19 Range/Units 11:50 RBC (3.80-5.40) m/uL Hgb (11.4-16.0) gm/dL Hct (34.0-46.0) % MCV (80.0-100.0) fL MCH (25.0-35.0) pg RDW (11.5-15.5) % BUN (7-17) mg/dL Creatinine (0.52-1.04) mg/dL Glucose (74-99) mg/dL POC Glucose (mg/dL) 164 H (75-99) mg/dL Calcium (8.4-10.2) mg/dL Total Protein (6.3-8.2) g/dL Total Protein (PEP) (6.2-8.2) g/dL Albumin (3.5-5.0) g/dL Albumin (PEP) (3.80-4.90) g/dL Gamma Globulins (0.70-1.50) g/dL Assessment and Plan Assessment: Syncopal episode with fall -Telemetry without significant events - Echocardiogram with preserved ejection fraction - PT/OT-severely unsteady gait - fall precuations - orthostatic vitals or within normal limits as able to obtain Anemia, severe iron deficiency -Ferritin 7.5 - IV iron, s/p 2 units prbc - Oncology recs appreciated, repeat ferritin in 1 month, GI evaluation - Fecal occult blood negative - EPO level penfing - EGD/Colon likely as outpatient - check thyroid levels Generalized weakness likely secondary to above -PT/OT -Fall precautions Chronic kidney disease stage III - appears near baseline - avoid additional nephrotoxic agents - follow BMP - Continue lasix and cozar Diabetes mellitus type 2 -Long-acting insulin on hold -sliding scale -Follow blood sugars NELDA, resolved Chronic conditions Diastolic congestive heart failure, currently compensated Hypertension, controlled Dyslipidemia Memory impairment Hypothyroidim DVT prophylaxis: SCDs Discussed with: Patient, nursing Anticipated discharge: in AM Anticipated discharge place: Lane A total of 25 minutes was spent on the care of this complex patient more than 50% of the time was spent in counseling and care coordination.
[2019-03-29 17:13] LABS: Glucose,Whole Blood 183 mg/dL (75-99)
[2019-03-29] MEDS: FERROUS SULFATE 325 MG TAB PO SCH (17:44)
[2019-03-29] MEDS: ACETAMINOPHEN TAB 325 MG TAB PO PRN (17:46)
[2019-03-29] MEDS: DULoxetine HCL 60 MG CAPSULE.DR PO SCH (20:40)
[2019-03-29] MEDS: DONEPEZIL 10 MG TAB PO SCH (20:40)
[2019-03-29 20:51] LABS: Glucose,Whole Blood 160 mg/dL (75-99)
[2019-03-29] MEDS ORDERED: INSULIN DETEMIR (LEVEMIR) 100 UNIT/ML SYR SQ SCH (21:00)
[2019-03-30] MEDS: LEVOTHYROXINE 50 MCG TAB PO SCH (05:15)
[2019-03-30 07:10] LABS: Glucose,Whole Blood 167 mg/dL (75-99)
[2019-03-30 07:18] VITALS: RESP 16
[2019-03-30] MEDS: INSULIN ASPART (NovoLOG) 100 UNIT/ML VIAL SQ SCH ×2 (07:18→11:49)
[2019-03-30] MEDS: FERROUS SULFATE 325 MG TAB PO SCH (07:18)
[2019-03-30] MEDS: buPROPion SR 100 MG TABLET.ER PO SCH (07:19)
[2019-03-30] MEDS: FUROSEMIDE 40 MG TAB PO SCH (07:19)
[2019-03-30] MEDS: LOSARTAN 25 MG TAB PO SCH (07:19)
[2019-03-30] MEDS: ATORVASTATIN 10 MG TAB PO SCH (07:19)
[2019-03-30] MEDS: GABAPENTIN 100 MG CAP PO SCH (07:19)
[2019-03-30] MEDS: ISOSORBIDE MONONITRATE ER 30 MG TAB.ER.24H PO SCH (07:19)
[2019-03-30 08:13] LABS: Calcium 7.1 mg/dL (8.4-10.2); Potassium 4.2 mmol/L (3.5-5.1); Total Bilirubin 0.7 mg/dL (0.2-1.3); Total Protein 5.3 g/dL (6.3-8.2)
[2019-03-30 08:21] LABS: Anisocytosis Slight; Basophils # (A) 0.1 k/uL (0-0.2); Basophils % (A) 1 %; Eosinophils # (A) 0.3 k/uL (0-0.7); Eosinophils % (A) 3 %; HCT 27.1 % (34.0-46.0); HGB 8.5 gm/dL (11.4-16.0); Hypochromasia Marked; Lymphocytes # (A) 1.6 k/uL (1.0-4.8); Lymphocytes % (A) 18 %; MCH 23.8 pg (25.0-35.0); MCHC 31.2 g/dL (31.0-37.0); MCV 76.3 fL (80.0-100.0); Mean Platelet Volume 8.7; Microcytosis Slight; Monocytes # (A) 0.6 k/uL (0-1.0); Monocytes % (A) 7 %; Neutrophils % (A) 69 %; Platelet Count 244 k/uL (150-450); Poikilocytosis Slight; RBC 3.55 m/uL (3.80-5.40); WBC 8.7 k/uL (3.8-10.6)
[2019-03-30] MEDS ORDERED: ASCORBIC ACID 500 MG TAB PO SCH (09:00)
[2019-03-30] MEDS ORDERED: ERGOCALCIFEROL 50,000 UNIT CAP PO SCH (09:00)
--- NOTE | 2019-03-30 11:39 | P.DS ---
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 In the ER she underwent an extensive evaluation. Initial vital signs within normal limits. Initial laboratory analysis showed a white blood cell count 8.8, hemoglobin 7.3, creatinine 1.7, and blood glucose of 131. She is having some right shoulder pain and an x-ray was obtained which showed no acute or healing fracture or malalignment, degenerative changes, and some Crystal density disease along the tendon. Chest x-ray showed no acute findings. EKG showed PACs, CT head showed no acute abnormality but some age-related changes of atrophy. She was subsequently admitted for symptomatic anemia and syncope. She underwent an echocardiogram which showed a preserved ejection fraction and no significant valvular disease. Anemia workup revealed severe iron deficiency anemia. She received 2 units of packed red blood cells and was started on IV iron. Vitamin B12 was in the low-normal range. Hematology was consulted. Patient was not having any bowel movements to obtain a fecal occult blood. She does report some decreased oral intake as she has been so weak she has been unable to cook and prepped meals for herself. She lives alone and her daughter comes over to check on her but not as often as she wants to as she is in bad shape per the patient. Heme recommended repeat ferritin levels in 1 month. Also recommended GI evaluation but patient not interested at this point in time, HgB stable and FOB negative so will follow-up as outpatient. Patient agreeable for SNF, EOP level was normal. Her reticulocyte index was 0.85 consistent with hypoproliferative anemia likely secondary to severe iron deficiency. She will follow up with GI on an outpatient basis. Per hematology recommendations she will have a repeat ferritin level in 1 month and then foll ow-up in their clinic. She did receive a total of 3 doses of IV iron and her oral iron therapy was increased. Her hemoglobin remained stable during her hospital stay and she was determined stable for discharge. Due to her severe weakness and debility she was sent to [facility]. Patient seen and examined at bedside. Vital signs reviewed and stable. General: non toxic, no distress, appears at stated age Derm: warm, dry Head: atraumatic, normocephalic, symmetric Eyes: EOMI, no lid lag, anicteric sclera Mouth: no lip lesion, mucus membranes moist Cardiovascular: S1S2 reg, no murmur, positive posterior tibial pulse bilateral, Lungs: decreased breath sound bilateral, no rhonchi, no rales , no accessory muscle use Abdominal: soft, nontender to palpation, no guarding, no appreciable organomegaly Ext: no gross muscle atrophy, 1+ edema, no contractures Neuro: CN II-XI grossly intact, no focal neuro deficits Psych: Alert, oriented, appropriate affect A total of 35 minutes of time were spent preparing this complex discharge summary . Patient Condition at Discharge: Stable Plan - Discharge Summary Discharge Rx Participant: No New Discharge Prescriptions: New Ferrous Sulfate [Iron (65 MG Elemental)] 325 mg PO BID-W/MEALS tab Insulin Detemir (Levemir) [Levemir] 10 unit SQ HS syr Gabapentin [Neurontin] 200 mg PO BID #60 cap Continue Desloratadine 5 mg PO QAM Pantoprazole [Protonix] 40 mg PO QAM Donepezil HCl [Aricept] 10 mg PO HS DULoxetine HCL [Cymbalta] 60 mg PO HS buPROPion HCL [Wellbutrin SR] 200 mg PO BID Mirabegron [Myrbetriq] 50 mg PO QAM Atorvastatin [Lipitor] 10 mg PO QAM Isosorbide Mononitrate ER [Imdur] 30 mg PO QAM Losartan [Cozaar] 25 mg PO QAM Cyanocobalamin (Vitamin B-12) [Vitamin B-12] 2,500 mcg PO DAILY Ascorbic Acid [Vitamin C] 500 mg PO DAILY Ergocalciferol [Vitamin D2 (DRISDOL)] 50,000 unit PO FR Levothyroxine Sodium [Synthroid] 175 mcg PO MOTUWETHFR Furosemide [Lasix] 40 mg PO DAILY Discontinued Gabapentin [Neurontin] 200 mg PO BID Insulin Glargine,Hum.rec.anlog [Lantus Solostar] 50 unit SQ HS HYDROcodone/APAP 5-325MG [[place] 5-325] 1 tab PO BID PRN PRN Reason: Pain Ferrous Sulfate [Feosol] 325 mg PO DAILY Metoprolol Succinate (ER) [Toprol Xl] 25 mg PO DAILY No Action Aspirin EC [Ecotrin Low Dose] 81 mg PO QAM Discharge Medication List Atorvastatin [Lipitor] 10 mg PO QAM 08/01/15 [History] DULoxetine HCL [Cymbalta] 60 mg PO HS 08/01/15 [History] Desloratadine 5 mg PO QAM 08/01/15 [History] Donepezil HCl [Aricept] 10 mg PO HS 08/01/15 [History] Mirabegron [Myrbetriq] 50 mg PO QAM 08/01/15 [History] Pantoprazole [Protonix] 40 mg PO QAM 08/01/15 [History] buPROPion HCL [Wellbutrin SR] 200 mg PO BID 08/01/15 [History] Aspirin EC [Ecotrin Low Dose] 81 mg PO QAM 06/17/16 [History] Isosorbide Mononitrate ER [Imdur] 30 mg PO QAM 06/17/16 [History] Losartan [Cozaar] 25 mg PO QAM 12/11/16 [History] Ascorbic Acid [Vitamin C] 500 mg PO DAILY 03/25/19 [History] Cyanocobalamin (Vitamin B-12) [Vitamin B-12] 2,500 mcg PO DAILY 03/25/19 [History] Ergocalciferol [Vitamin D2 (DRISDOL)] 50,000 unit PO FR 03/25/19 [History] Furosemide [Lasix] 40 mg PO DAILY 03/25/19 [History] Levothyroxine Sodium [Synthroid] 175 mcg PO MOTUWETHFR 03/25/19 [History] Ferrous Sulfate [Iron (65 MG Elemental)] 325 mg PO BID-W/MEALS tab 03/30/19 [Rx] Gabapentin [Neurontin] 200 mg PO BID #60 cap 03/30/19 [Rx] Insulin Detemir (Levemir) [Levemir] 10 unit SQ HS syr 03/30/19 [Rx] Follow up Appointment(s)/Referral(s): Levi Staley MD [STAFF PHYSICIAN] - 04/30/19 1:30 pm ([facility] [place] [facility].) Malu Driscoll MD [STAFF PHYSICIAN] - 04/20/19 9:15 am (for repeat eval,hospitalized with anemia, occult blood negative) [facility], [NON-STAFF] - As Needed Steven Ye MD [Primary Care Provider] - 1 Week Patient Instructions/Handouts: Syncope (DC), Anemia (DC) Activity/Diet/Wound Care/Special Instructions: Activity: as tolerated, with assist, fall precautions Diet: Carb Consistent, heart healthy Special Instructions: Repeat CBC and BMP in 1 week DX: Anemia and NELDA on CKD Ferritin level in 1 month, just before appointment with Dr. Staley, results to Dr. Staley Discharge Disposition: TRANSFER TO SNF/ECF
[2019-03-30 11:43] LABS: Glucose,Whole Blood 177 mg/dL (75-99)
[2019-03-30 14:10] VITALS: BP 121/62; PULSE 88; TEMP 99.1
== END 2019-03-30 15:10 | DRG 812 ==
LOC: SUPCPDRO 21:53 → EC 21:53 → 4SSUR 03-26 00:11 → OBSVTOIN 03-27 09:58
PROVIDERS: ADMIT Internal Medicine; ATTEND Internal Medicine
PROC: 30233N1 Transfusion of Nonautologous Red Blood Cells into Peripheral Vein, Percutaneous Approach (ICD-10-PCS; principal; 2019-03-25)
DX: D50.9 Iron deficiency anemia, unspecified (principal); I13.0 Hypertensive heart and chronic kidney disease with heart failure and stage 1 through stage 4 chronic kidney disease, or unspecified chronic kidney disease; I50.32 Chronic diastolic (congestive) heart failure; N17.9 Acute kidney failure, unspecified; E03.9 Hypothyroidism, unspecified; E11.22 Type 2 diabetes mellitus with diabetic chronic kidney disease; E78.5 Hyperlipidemia, unspecified; F32.9 Major depressive disorder, single episode, unspecified; F41.9 Anxiety disorder, unspecified; G47.30 Sleep apnea, unspecified; J44.9 Chronic obstructive pulmonary disease, unspecified; K21.9 Gastro-esophageal reflux disease without esophagitis; N18.3 Chronic kidney disease, stage 3 (moderate); W19.XXXA Unspecified fall, initial encounter; Z79.4 Long term (current) use of insulin; Z79.82 Long term (current) use of aspirin; Z79.890 Hormone replacement therapy; Z79.899 Other long term (current) drug therapy; Z80.42 Family history of malignant neoplasm of prostate; Z82.49 Family history of ischemic heart disease and other diseases of the circulatory system; Z83.3 Family history of diabetes mellitus; Z85.42 Personal history of malignant neoplasm of other parts of uterus; Z86.74 Personal history of sudden cardiac arrest; Z90.710 Acquired absence of both cervix and uterus; Z88.2 Allergy status to sulfonamides; Z91.010 Allergy to peanuts; R55 Syncope and collapse; E11.65 Type 2 diabetes mellitus with hyperglycemia; Z90.49 Acquired absence of other specified parts of digestive tract
CPT/HCPCS: 36415; 51701; 70450; 71046; 80048; 80053; 81003; 82272; 82607; 82668; 82728; 82746; 83540; 83550; 83883; 83921; 84165; 84484; 85025; 85027; 85045; 85610; 85730; 86334; 86850; 86900; 86901; 86920; 93005; 93306; 94760; 96360; 96361; 99285

== ENCOUNTER 2022-09-13 15:55 | Inpatient (IN) | payer MEDICARE, BC ==
[2022-09-13 17:28] LABS: Anisocytosis Slight; Basophils % (A) 0 %; Eosinophils # (A) 0.2 k/uL (0-0.7); Eosinophils % (A) 2 %; HCT 31.4 % (34.0-46.0); HGB 9.8 gm/dL (11.4-16.0); Lymphocytes # (A) 1.9 k/uL (1.0-4.8); Lymphocytes % (A) 17 %; MCH 28.6 pg (25.0-35.0); MCHC 31.3 g/dL (31.0-37.0); MCV 91.5 fL (80.0-100.0); Mean Platelet Volume 10.6; Monocytes # (A) 0.6 k/uL (0-1.0); Monocytes % (A) 5 %; Neutrophils % (A) 74 %; Platelet Count 209 k/uL (150-450); RBC 3.44 m/uL (3.80-5.40); RDW 18.2 % (11.5-15.5); WBC 10.8 k/uL (3.8-10.6)
--- NOTE | 2022-09-13 17:38 | ED ---
Weakness HPI - General Chief complaint: Weakness Stated complaint: Weakness Time Seen by Provider: 09/13/22 16:00 Source: patient, EMS, RN notes reviewed Mode of arrival: EMS Limitations: physical limitation - History of Present Illness Initial comments: 87-year-old female brought in by EMS because of generalized weakness decreased oral intake for the last day or so decreased urine output no overt nausea vomiting. Patient also has demonstrated foul-smelling urine UTI suspected. Patient denies any pain at this time no fevers chills or sweats reported. MD Complaint: generalized weakness - Related Data Home Medications Medication Instructions Recorded Confirmed Atorvastatin [Lipitor] 10 mg PO DAILY 08/01/15 09/13/22 DULoxetine HCL [Cymbalta] 60 mg PO HS 08/01/15 09/13/22 Desloratadine 5 mg PO DAILY 08/01/15 09/13/22 Donepezil HCl [Aricept] 10 mg PO BID 08/01/15 09/13/22 Mirabegron [Myrbetriq] 50 mg PO DAILY 08/01/15 09/13/22 Pantoprazole [Protonix] 40 mg PO DAILY 08/01/15 09/13/22 buPROPion HCL [Wellbutrin SR] 200 mg PO BID 08/01/15 09/13/22 Aspirin EC [Ecotrin Low Dose] 81 mg PO QAM 06/17/16 09/13/22 Isosorbide Mononitrate ER [Imdur] 30 mg PO DAILY 06/17/16 09/13/22 Losartan [Cozaar] 25 mg PO DAILY 12/11/16 09/13/22 Ascorbic Acid [Vitamin C] 500 mg PO DAILY 03/25/19 09/13/22 Cyanocobalamin (Vitamin B-12) 2,500 mcg PO DAILY 03/25/19 09/13/22 [Vitamin B-12] Furosemide [Lasix] 60 mg PO DAILY 03/25/19 09/13/22 Albuterol Inhaler [Ventolin Hfa 1 - 2 puff INHALATION RT-Q6H PRN 09/13/22 09/13/22 Inhaler] Cholecalciferol [Vitamin D3 (125 125 mcg PO DAILY 09/13/22 09/13/22 Mcg = 5000 Iu)] Folate/Vitamin B-6/Biotin 1 tab PO DAILY 09/13/22 09/13/22 [id number] Hydrocortisone Cream 1 applic TOPICAL BID PRN 09/13/22 09/13/22 [Hydrocortisone 2.5% Cream] Insulin Aspart [NovoLOG Flexpen] See Protocol SQ AC-TID PRN 09/13/22 09/13/22 Insulin Glargine,Hum.rec.anlog 45 units SQ PC-BRKFST 09/13/22 09/13/22 [Lantus Solostar Pen] Ipratropium [place] 0.06%Nasal 2 spray EA NOSTRIL BID PRN 09/13/22 09/13/22 [Atrovent Nasal 0.06%] Levothyroxine Sodium [Synthroid] 150 mcg PO DAILY 09/13/22 09/13/22 Meclizine [Antivert] 12.5 mg PO TID PRN 09/13/22 09/13/22 Memantine [Namenda] 10 mg PO HS 09/13/22 09/13/22 Nateglinide [Starlix] 60 mg PO AC-TID 09/13/22 09/13/22 Pregabalin [Lyrica] 50 mg PO BID 09/13/22 09/13/22 allopurinoL [Zyloprim] 300 mg PO Q48H 09/13/22 09/13/22 metOLazone [Zaroxolyn] 2.5 mg PO TUFR 09/13/22 09/13/22 Allergies Allergy/AdvReac Type Severity Reaction Status Date / Time Penicillins Allergy Rash/Hives Verified 09/13/22 19:56 Sulfa (Sulfonamide Allergy Rash/Hives Verified 09/13/22 19:56 Antibiotics) Review of Systems ROS Statement: Those systems with pertinent positive or pertinent negative responses have been documented in the HPI. ROS Other: All systems not noted in ROS Statement are negative. Past Medical History Past Medical History: Cancer, Heart Failure, Diabetes Mellitus, GERD/Reflux, Hyperlipidemia, Hypertension, Memory Impairment, Osteoarthritis (OA), Sleep Apnea/CPAP/BIPAP, Thyroid Disorder Additional Past Medical History / Comment(s): hiatal hernia, chronic back pain, bilateral neuropathy of legs and feet, leg edema bilaterally, , , cervical and uterine cancer , ROSACEA History of Any Multi-Drug Resistant Organisms: None Reported Past Surgical History: Bariatric Surgery, Cholecystectomy, Heart Catheterization, Hernia Repair, Hysterectomy, Orthopedic Surgery Additional Past Surgical History / Comment(s): 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 Past Psychological History: Anxiety, Depression Smoking Status: Unknown if ever smoked Past Alcohol Use History: None Reported Past Drug Use History: None Reported - Past Family History Father Family Medical History: Cancer Additional Family Medical History / Comment(s): Father of prostate cancer at age 88 yrs. Mother Family Medical History: Cancer, Diabetes Mellitus, Myocardial Infarction ([place]) Additional Family Medical History / Comment(s): Mother at age 77yrs. Brother(s) Family Medical History: Blood Disorder, CVA/TIA, Diabetes Mellitus, Myocardial Infarction ([place]) Daughter(s) Family Medical History: Cancer Son(s) Family Medical History: No Reported History General Exam - General Exam Comments Initial Comments: This is a well-developed well-nourished awake alert oriented 4 female Limitations: physical limitation General appearance: alert, in no apparent distress Head exam: Present: atraumatic, normocephalic, normal inspection Eye exam: Present: normal appearance, PERRL, EOMI. Absent: scleral icterus, conjunctival injection, periorbital swelling ENT exam: Present: mucous membranes dry Neck exam: Present: normal inspection, full ROM, other. Absent: tenderness, meningismus, lymphadenopathy Respiratory exam: Present: decreased breath sounds (Neurosurgery or bruits). Absent: respiratory distress, wheezes, rales, rhonchi, stridor Cardiovascular Exam: Present: regular rate, normal rhythm, normal heart sounds. Absent: systolic murmur, diastolic murmur, rubs, gallop, clicks GI/Abdominal exam: Present: soft, normal bowel sounds. Absent: distended, tenderness, guarding, rebound, rigid Extremities exam: Present: normal inspection, full ROM, normal capillary refill. Absent: tenderness, pedal edema, joint swelling, calf tenderness Back exam: Present: normal inspection Neurological exam: Present: alert, oriented X3, CN II-XII intact Psychiatric exam: Present: normal affect, normal mood Skin exam: Present: warm, dry, intact, normal color. Absent: rash Course Vital Signs 09/13/22 16:02 Temperature 98.8 F Pulse Rate 85 Respiratory 18 Rate Blood Pressure 122/47 O2 Sat by Pulse 94 L Oximetry Medical Decision Making - Medical Decision Making I did discuss the findings with the patient family members. Patient demonstr ates a UTI dehydration and hypomagnesemia weakness from the above. Patient will be admittedWas pt. sent in by a medical professional or institution (, [facility], [facility], urgent care, hospital, or assisted...) When possible be specific @ -[No] Did you speak to anyone other than the patient for history (EMS, parent, family, police, friend...)? What history was obtained from this source @ -[Paramedics] Did you review nursing and triage notes (agree or disagree)? Why? @ -[I reviewed and agree with nursing and triage notes] Were old charts reviewed (outside hosp., previous admission, EMS record, old EKG, old radiological studies, urgent care reports/EKG's, assisted records)? Report findings @ -[ old charts were reviewed] Differential Diagnosis (chest pain, altered mental status, abdominal pain women, abdominal pain men, vaginal bleeding, weakness, fever, dyspnea, syncope, headache, dizziness, GI bleed, back pain, seizure, CVA, palpatations, mental health, musculoskeletal)? @ -Urinary tract infection, dehydration, weakness] EKG interpreted by me (3pts min.). @ -[] X-rays interpreted by me (1pt min.). @ -[As above] CT interpreted by me (1pt min.). @ -[None done] U/S interpreted by me (1pt. min.). @ -[None done] What testing was considered but not performed or refused? (CT, X-rays, U/S, labs)? Why? @ -[None] What meds were considered but not given or refused? Why? @ -[None] Did you discuss the management of the patient with other professionals (professionals i.e. [facility] Rey, [facility], lab, RT, psych nurse, social sciences professor, lodge officer, teacher, accounts officer, caser shoe parts)? Give summary @ -[[place] covering Dr. Aguila] Was smoking cessation discussed for >3mins.? @ -[No] Was critical care preformed (if so, how long)? @ -[No] Were there social determinants of health that impacted care today? How? (Homelessness, low income, unemployed, alcoholism, drug addiction, transportation, low edu. Level, literacy, decrease access to med. care, [facility], rehab)? @ -[No] Was there de-escalation of care discussed even if they declined (Discuss DNR or withdrawal of care, Hospice)? DNR status @ -[No] What co-morbidities impacted this encounter? (DM, HTN, Smoking, COPD, CAD, C ancer, CVA, ARF, Chemo, Hep., AIDS, mental health diagnosis, sleep apnea, morbid obesity)? @ -[Hypertension, heart failure, cancer, thyroid disorder] Was patient admitted / discharged? Hospital course, mention meds given and route, prescriptions, significant lab abnormalities, going to OR and other pertinent info. @ -[hospital course] admitted Undiagnosed new problem with uncertain prognosis? @ -[Urinary tract infection] Drug Therapy requiring intensive monitoring for toxicity (Heparin, Nitro, Insulin, Cardizem)? @ -[No] Were any procedures done? @ -[No] Diagnosis/symptom? @ -[Related infection, dehydration, anemia, hypomagnesemia, acute kidney injury] Acute, or Chronic, or Acute on Chronic? @ -[Acute] Uncomplicated (without systemic symptoms) or Complicated (systemic symptoms)? @ -[default] Side effects of treatment? @ -[No] Exacerbation, Progression, or Severe Exacerbation? @ -[No] Poses a threat to life or bodily function? How? (Chest pain, [place], [place], pneumonia, PE, COPD, DKA, ARF, appy, cholecystitis, CVA, Diverticulitis, Homicidal, Suicidal, threat to staff... and all critical care pts) @ -[No] - Lab Data Result diagrams: 09/13/22 17:14 09/13/22 17:14 Lab Results 09/13/22 09/13/22 09/13/22 Range/Units 17:14 17:14 17:14 WBC 10.8 H (3.8-10.6) k/uL RBC 3.44 L (3.80-5.40) m/uL Hgb 9.8 L (11.4-16.0) gm/dL Hct 31.4 L (34.0-46.0) % MCV 91.5 (80.0-100.0) fL MCH 28.6 (25.0-35.0) pg MCHC 31.3 (31.0-37.0) g/dL RDW 18.2 H (11.5-15.5) % Plt Count 209 (150-450) k/uL MPV 10.6 Neutrophils % 74 % Lymphocytes % 17 % Monocytes % 5 % Eosinophils % 2 % Basophils % 0 % Neutrophils # 8.0 H (1.3-7.7) k/uL Lymphocytes # 1.9 (1.0-4.8) k/uL Monocytes # 0.6 (0-1.0) k/uL Eosinophils # 0.2 (0-0.7) k/uL Basophils # 0.0 (0-0.2) k/uL Anisocytosis Slight Sodium 143 (137-145) mmol/L Potassium 3.6 (3.5-5.1) mmol/L Chloride 102 (98-107) mmol/L Carbon Dioxide 36 H (22-30) mmol/L Anion Gap 5 mmol/L BUN 55 H (7-17) mg/dL Creatinine 1.82 H (0.52-1.04) mg/dL Est GFR (CKD-EPI)AfAm 28 (>60 ml/min/1.73 sqM) Est GFR (CKD-EPI)NonAf 25 (>60 ml/min/1.73 sqM) Glucose 76 (74-99) mg/dL Plasma Lactic Acid [place] 0.8 (0.7-2.0) mmol/L Calcium 9.9 (8.4-10.2) mg/dL Magnesium 1.5 L (1.6-2.3) mg/dL Total Bilirubin 0.9 (0.2-1.3) mg/dL AST 24 (14-36) U/L ALT 18 (4-34) U/L Alkaline Phosphatase 115 (38-126) U/L Creatine Kinase 29 L (30-135) U/L Troponin I (0.000-0.034) ng/mL Total Protein 5.8 L (6.3-8.2) g/dL Albumin 3.5 (3.5-5.0) g/dL Urine Color Urine Appearance (Clear) Urine pH (5.0-8.0) Ur Specific [place] (1.001-1.035) Urine Protein (Negative) Urine Glucose (UA) (Negative) Urine Ketones (Negative) Urine Blood (Negative) Urine Nitrite (Negative) Urine Bilirubin (Negative) Urine Urobilinogen (<2.0) mg/dL Ur Leukocyte Esterase (Negative) Urine RBC (0-5) /hpf Urine WBC (0-5) /hpf Ur Squamous Epith Cells (0-4) /hpf Amorphous Sediment (None) /hpf Urine Bacteria (None) /hpf Urine Mucus (None) /hpf 09/13/22 09/13/22 Range/Units 17:14 18:14 WBC (3.8-10.6) k/uL RBC (3.80-5.40) m/uL Hgb (11.4-16.0) gm/dL Hct (34.0-46.0) % MCV (80.0-100.0) fL MCH (25.0-35.0) pg MCHC (31.0-37.0) g/dL RDW (11.5-15.5) % Plt Count (150-450) k/uL MPV Neutrophils % % Lymphocytes % % Monocytes % % Eosinophils % % Basophils % % Neutrophils # (1.3-7.7) k/uL Lymphocytes # (1.0-4.8) k/uL Monocytes # (0-1.0) k/uL Eosinophils # (0-0.7) k/uL Basophils # (0-0.2) k/uL Anisocytosis Sodium (137-145) mmol/L Potassium (3.5-5.1) mmol/L Chloride (98-107) mmol/L Carbon Dioxide (22-30) mmol/L Anion Gap mmol/L BUN (7-17) mg/dL Creatinine (0.52-1.04) mg/dL Est GFR (CKD-EPI)AfAm (>60 ml/min/1.73 sqM) Est GFR (CKD-EPI)NonAf (>60 ml/min/1.73 sqM) Glucose (74-99) mg/dL Plasma Lactic Acid [place] (0.7-2.0) mmol/L Calcium (8.4-10.2) mg/dL Magnesium (1.6-2.3) mg/dL Total Bilirubin (0.2-1.3) mg/dL AST (14-36) U/L ALT (4-34) U/L Alkaline Phosphatase (38-126) U/L Creatine Kinase (30-135) U/L Troponin I <0.012 (0.000-0.034) ng/mL Total Protein (6.3-8.2) g/dL Albumin (3.5-5.0) g/dL Urine Color Yellow Urine Appearance Turbid H (Clear) Urine pH 7.5 (5.0-8.0) Ur Specific [place] 1.012 (1.001-1.035) Urine Protein Trace H (Negative) Urine Glucose (UA) Negative (Negative) Urine Ketones Negative (Negative) Urine Blood Large H (Negative) Urine Nitrite Positive H (Negative) Urine Bilirubin Negative (Negative) Urine Urobilinogen <2.0 (<2.0) mg/dL Ur Leukocyte Esterase Large H (Negative) Urine RBC 54 H (0-5) /hpf Urine WBC 19 H (0-5) /hpf Ur Squamous Epith Cells 1 (0-4) /hpf Amorphous Sediment Few H (None) /hpf Urine Bacteria Many H (None) /hpf Urine Mucus Rare H (None) /hpf - Radiology Data Interpreted by me: Imaging reviewed by me increased pulmonary vascular markings noted definitive consolidations Disposition Clinical Impression: Urinary tract infection, Dehydration, Anemia, Hypomagnesemia, Acute kidney injury, Leukocytosis Disposition: ADMITTED IP TO THIS [facility] Condition: Fair Referrals: Malcolm Miranda MD [Primary Care Provider] - 1-2 days Decision Date: 09/13/22 Decision Time: 20:55
[2022-09-13 17:46] LABS: Albumin 3.5 g/dL (3.5-5.0); Calcium 9.9 mg/dL (8.4-10.2); Magnesium 1.5 mg/dL (1.6-2.3); Potassium 3.6 mmol/L (3.5-5.1); Total Bilirubin 0.9 mg/dL (0.2-1.3); Total Protein 5.8 g/dL (6.3-8.2)
[2022-09-13 18:49] LABS: Amorphous Sediment,Urine Few /hpf; Appearance,Urine Turbid (Clear); Bacteria,Urine Many /hpf; Bilirubin,Urine Negative (Negative); Blood,Urine Large (Negative); Color,Urine Yellow; Glucose,Urine (UA) Negative (Negative); Ketones,Urine Negative (Negative); Leukocyte Esterase,Urine Large (Negative); Mucus,Urine Rare /hpf; Nitrite,Urine Positive (Negative); PH, Urine 7.5 (5.0-8.0); Protein,Urine Trace (Negative); RBC,Urine 54 /hpf (0-5); Specific Gravity,Urine 1.012 (1.001-1.035); Squamous Epithelial Cell,Urine 1 /hpf (0-4); Urobilinogen,Urine <2.0 mg/dL (<2.0); WBC,Urine 19 /hpf (0-5)
--- NOTE | 2022-09-13 19:06 | XR ---
EXAMINATION TYPE: XR chest 2V DATE OF EXAM: 09/13/2022 6:43 PM COMPARISON: Chest radiographs from 03/25/2019 TECHNIQUE: XR chest 2V Frontal and lateral views of the chest. CLINICAL INDICATION:Female, 87 years old with history of Weakness; FINDINGS: Lungs/Pleura: There is no evidence of pleural effusion, focal consolidation, or pneumothorax. Pulmonary vascularity: Pulmonary vascular congestion. Heart/mediastinum: Cardiomediastinal silhouette is enlarged and stable. Atherosclerotic calcificatio ns are seen in the aorta. Musculoskeletal: Degenerative changes of the shoulder joints. IMPRESSION: Cardiomegaly and mild pulmonary vascular congestion. Correlate with BNP for congestive heart failure.
[2022-09-13] MEDS ORDERED: MAGNESIUM SULFATE-D5W PMX 1 GM in DEXTROSE/WATER 1 100ML.BAG IVPB ONE (19:48)
[2022-09-13] MEDS ORDERED: cefTRIAXone IN SWFI 1,000 MG/10 ML SYRINGE IVP STA (19:49)
[2022-09-13] MEDS ORDERED: ACETAMINOPHEN TAB 325 MG TAB PO PRN (20:55)
[2022-09-13] MEDS ORDERED: NALOXONE 0.4 MG/ML 1 ML VIAL IV PRN (20:55)
[2022-09-13] MEDS ORDERED: MECLIZINE 12.5 MG TAB PO PRN (20:56)
[2022-09-13] MEDS ORDERED: HYDROCORTISONE 1% CREAM 30 GM TUBE TOPICAL PRN (20:56)
[2022-09-13] MEDS ORDERED: ALBUTEROL NEBULIZED 2.5 MG/3 ML INHALATION PRN (20:56)
[2022-09-13] MEDS ORDERED: IPRATROPIUM BROMIDE 0.06% NASAL SPRAY (15 ML) EA NOSTRIL PRN (20:56)
[2022-09-13] MEDS: DULoxetine HCL 60 MG CAPSULE.DR PO SCH (23:15)
[2022-09-13] MEDS: PREGABALIN 50 MG CAP PO SCH (23:16)
[2022-09-13] MEDS: DONEPEZIL 10 MG TAB PO SCH (23:16)
[2022-09-13] MEDS: buPROPion SR 100 MG TABLET.ER PO SCH (23:16)
[2022-09-13] MEDS: MEMANTINE 10 MG TAB PO SCH (23:18)
[2022-09-13] MEDS: SODIUM CHLORIDE 0.9% 1,000 ML IV SCH (23:18)
[2022-09-14 08:05] LABS: Glucose,Whole Blood 194 mg/dL (70-110)
[2022-09-14] MEDS ORDERED: BIOTIN PO SCH (09:00)
[2022-09-14] MEDS ORDERED: cefTRIAXone IN SWFI 1,000 MG/10 ML SYRINGE IVP SCH (09:00)
[2022-09-14] MEDS ORDERED: FOLATE PO SCH (09:00)
[2022-09-14] MEDS ORDERED: VITAMIN B6 PO SCH (09:00)
[2022-09-14] MEDS ORDERED: metOLazone 2.5 MG TAB PO SCH (09:00)
[2022-09-14] MEDS ORDERED: LOSARTAN 25 MG TAB PO SCH (09:00)
[2022-09-14] MEDS: LEVOTHYROXINE 75 MCG TAB PO SCH (10:09)
[2022-09-14] MEDS: CYANOCOBALAMIN 500 MCG TAB PO SCH (10:11)
[2022-09-14] MEDS: FUROSEMIDE 20 MG TAB PO SCH (10:11)
[2022-09-14] MEDS: ASCORBIC ACID 500 MG TAB PO SCH (10:11)
[2022-09-14] MEDS: buPROPion SR 100 MG TABLET.ER PO SCH ×2 (10:12→23:41)
[2022-09-14] MEDS: DONEPEZIL 10 MG TAB PO SCH ×2 (10:12→22:42)
[2022-09-14] MEDS: ATORVASTATIN 10 MG TAB PO SCH (10:12)
[2022-09-14] MEDS: ISOSORBIDE MONONITRATE ER 30 MG TAB.ER.24H PO SCH (10:12)
[2022-09-14] MEDS: CHOLECALCIFEROL 125 MCG (5000 IU) TABLET PO SCH (10:12)
[2022-09-14] MEDS: allopurinoL 300 MG TAB PO SCH (10:12)
[2022-09-14] MEDS: ASPIRIN 81 MG PO SCH (10:13)
[2022-09-14] MEDS: LORATADINE 10 MG TAB PO SCH (10:13)
[2022-09-14] MEDS: NATEGLINIDE 60 MG PO SCH ×3 (10:14→17:59)
[2022-09-14] MEDS: PANTOPRAZOLE 40 MG TABLET PO SCH (10:33)
[2022-09-14] MEDS: PREGABALIN 50 MG CAP PO SCH ×2 (10:34→22:42)
[2022-09-14] MEDS: INSULIN DETEMIR (LEVEMIR) 100 UNIT/ML SYR SQ SCH (10:34)
[2022-09-14] MEDS: SODIUM CHLORIDE 0.9% 1,000 ML IV SCH ×2 (10:34→22:43)
[2022-09-14] MEDS: NON FORMULARY DRUG (Mirabegron [Myrbetriq] 50 MG Tab.Er.24h) PO SCH (10:34)
--- NOTE | 2022-09-14 12:01 | P.HPIM ---
History of Present Illness 87-year-old female came in with complaints of for dysuria as well as decreased urine output. Patient is found to have abnormal urine and was admitted for urinary tract infection patient does have leukocytosis without any fever. Alina delarosa is feeling better at this time. Patient clinically doesn't have any obvious CHF symptoms patient doesn't have any pedal edema or elevated JVD a chest x-ray showed mild pleural effusions patient is on diuretics at home. I ordered a BNP patient is presently on fluids as well as diuretics, depending on the BNP one of these negative.. Patient has elevated creatinine 1.8 baseline is around 1.2. Epogen live [place] weakness and tiredness. REVIEW OF SYSTEMS: CONSTITUTIONAL: No fever. HEENT: No recent visual problems or hearing problems. Denied any sore throat. CARDIOVASCULAR: No chest pain, orthopnea, PND, no palpitations, no syncope. PULMONARY: No shortness of breath, no cough, no hemoptysis. GASTROINTESTINAL: No diarrhea, no nausea, no vomiting, no abdominal pain. NEUROLOGICAL: No headaches, no weakness, no numbness. HEMATOLOGICAL: Denies any bleeding or petechiae. GENITOURINARY: Denies any burning micturition, frequency, or urgency. MUSCULOSKELETAL/RHEUMATOLOGICAL: Denies any joint pain, swelling, or any muscle pain. ENDOCRINE: Denies any polyuria or polydipsia. The rest of the 14-point review of systems is negative. PHYSICAL EXAMINATION: GENERAL: The patient is alert and oriented x3, not in any acute distress. Well developed, well nourished. Obese HEENT: Pupils are round and equally reacting to light. EOMI. No scleral icterus. No conjunctival pallor. Normocephalic, atraumatic. No pharyngeal erythema. No thyromegaly. CARDIOVASCULAR: S1 and S2 present. No murmurs, rubs, or gallops. PULMONARY: Chest is clear to auscultation, no wheezing or crackles. ABDOMEN: Soft, nontender, nondistended, normoactive bowel sounds. No palpable organomegaly. MUSCULOSKELETAL: No joint swelling or deformity. EXTREMITIES: No cyanosis, clubbing, or pedal edema. NEUROLOGICAL: Gross neurological examination did not reveal any focal deficits. SKIN: No rashes. Assessment and plan 1 possible urinary tract infection: Continue with the Rocephin 1 g awaiting urine cultures. -Acute renal failure: Most probably secondary to diuretics. Clinically patient doesn't appear to be in CHF will hold off on diuretics was negative BNP. -Congestive heart failure probably diastolic dysfunction presently clinically doesn't appear to be in CHF exacerbation at this time -Type 2 diabetes mellitus -Hyperlipidemia -Hypertension -Obesity, sleep apnea uses CPAP machine which will be continued -Hypothyroidism -Depression next and-generalized weakness secondary to is related muscle atrophy physical therapy and occupational therapy evaluation DVT prophylaxis: Subcutaneous heparin Past Medical History Past Medical History: Cancer, Heart Failure, Diabetes Mellitus, GERD/Reflux, Hyperlipidemia, Hypertension, Memory Impairment, Osteoarthritis (OA), Sleep Apnea/CPAP/BIPAP, Thyroid Disorder Additional Past Medical History / Comment(s): hiatal hernia, chronic back pain, bilateral neuropathy of legs and feet, leg edema bilaterally, , , cervical and uterine cancer , ROSACEA History of Any Multi-Drug Resistant Organisms: None Reported Past Surgical History: Bariatric Surgery, Cholecystectomy, Heart Catheterization, Hernia Repair, Hysterectomy, Orthopedic Surgery Additional Past Surgical History / Comment(s): 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 Past Psychological History: Anxiety, Depression Smoking Status: Unknown if ever smoked Past Alcohol Use History: None Reported Past Drug Use History: None Reported - Past Family History Father Family Medical History: Cancer Additional Family Medical History / Comment(s): Father of prostate cancer at age 88 yrs. Mother Family Medical History: Cancer, Diabetes Mellitus, Myocardial Infarction ([place]) Additional Family Medical History / Comment(s): Mother at age 77yrs. Brother(s) Family Medical History: Blood Disorder, CVA/TIA, Diabetes Mellitus, Myocardial Infarction ([place]) Daughter(s) Family Medical History: Cancer Son(s) Family Medical History: No Reported History Medications and Allergies Home Medications Medication Instructions Recorded Confirmed Type Atorvastatin [Lipitor] 10 mg PO DAILY 08/01/15 09/13/22 History DULoxetine HCL [Cymbalta] 60 mg PO HS 08/01/15 09/13/22 History Desloratadine 5 mg PO DAILY 08/01/15 09/13/22 History Donepezil HCl [Aricept] 10 mg PO BID 08/01/15 09/13/22 History Mirabegron [Myrbetriq] 50 mg PO DAILY 08/01/15 09/13/22 History Pantoprazole [Protonix] 40 mg PO DAILY 08/01/15 09/13/22 History buPROPion HCL [Wellbutrin SR] 200 mg PO BID 08/01/15 09/13/22 History Aspirin EC [Ecotrin Low Dose] 81 mg PO QAM 06/17/16 09/13/22 History Isosorbide Mononitrate ER [Imdur] 30 mg PO DAILY 06/17/16 09/13/22 History Losartan [Cozaar] 25 mg PO DAILY 12/11/16 09/13/22 History Ascorbic Acid [Vitamin C] 500 mg PO DAILY 03/25/19 09/13/22 History Cyanocobalamin (Vitamin B-12) 2,500 mcg PO DAILY 03/25/19 09/13/22 History [Vitamin B-12] Furosemide [Lasix] 60 mg PO DAILY 03/25/19 09/13/22 History Albuterol Inhaler [Ventolin Hfa 1 - 2 puff INHALATION RT-Q6H PRN 09/13/22 09/13/22 History Inhaler] Cholecalciferol [Vitamin D3 (125 125 mcg PO DAILY 09/13/22 09/13/22 History Mcg = 5000 Iu)] Folate/Vitamin B-6/Biotin 1 tab PO DAILY 09/13/22 09/13/22 History [id number] Hydrocortisone Cream 1 applic TOPICAL BID PRN 09/13/22 09/13/22 History [Hydrocortisone 2.5% Cream] Insulin Aspart [NovoLOG Flexpen] See Protocol SQ AC-TID PRN 09/13/22 09/13/22 History Insulin Glargine,Hum.rec.anlog 45 units SQ PC-BRKFST 09/13/22 09/13/22 History [Lantus Solostar Pen] Ipratropium [place] 0.06%Nasal 2 spray EA NOSTRIL BID PRN 09/13/22 09/13/22 History [Atrovent Nasal 0.06%] Levothyroxine Sodium [Synthroid] 150 mcg PO DAILY 09/13/22 09/13/22 History Meclizine [Antivert] 12.5 mg PO TID PRN 09/13/22 09/13/22 History Memantine [Namenda] 10 mg PO HS 09/13/22 09/13/22 History Nateglinide [Starlix] 60 mg PO AC-TID 09/13/22 09/13/22 History Pregabalin [Lyrica] 50 mg PO BID 09/13/22 09/13/22 History allopurinoL [Zyloprim] 300 mg PO Q48H 09/13/22 09/13/22 History metOLazone [Zaroxolyn] 2.5 mg PO TUFR 09/13/22 09/13/22 History Allergies Allergy/AdvReac Type Severity Reaction Status Date / Time Penicillins Allergy Rash/Hives Verified 09/13/22 19:56 Sulfa (Sulfonamide Allergy Rash/Hives Verified 09/13/22 19:56 Antibiotics) Physical Exam Vitals: Vital Signs Temp Pulse Pulse Resp BP BP Pulse Ox 09/14/22 10:10 98.3 F 86 14 125/56 98 09/14/22 07:56 86 09/14/22 07:48 82 09/14/22 03:53 88 18 112/51 96 09/14/22 02:27 87 18 107/61 95 09/13/22 23:24 98.4 F 92 18 113/52 96 09/13/22 19:00 98.8 F 88 18 130/82 95 09/13/22 16:02 98.8 F 85 18 122/47 94 L Intake and Output 09/13/22 09/14/22 09/14/22 22:59 06:59 14:59 Other: Weight 81.647 kg Results CBC & Chem 7: 09/13/22 17:14 09/13/22 17:14 Labs: Abnormal Lab Results - Last 24 Hours (Table) 09/13/22 09/13/22 09/13/22 Range/Units 17:14 17:14 18:14 WBC 10.8 H (3.8-10.6) k/uL RBC 3.44 L (3.80-5.40) m/uL Hgb 9.8 L (11.4-16.0) gm/dL Hct 31.4 L (34.0-46.0) % RDW 18.2 H (11.5-15.5) % Neutrophils # 8.0 H (1.3-7.7) k/uL Carbon Dioxide 36 H (22-30) mmol/L BUN 55 H (7-17) mg/dL Creatinine 1.82 H (0.52-1.04) mg/dL POC Glucose (mg/dL) (70-110) mg/dL Magnesium 1.5 L (1.6-2.3) mg/dL Creatine Kinase 29 L (30-135) U/L Total Protein 5.8 L (6.3-8.2) g/dL Urine Appearance Turbid H (Clear) Urine Protein Trace H (Negative) Urine Blood Large H (Negative) Urine Nitrite Positive H (Negative) Ur Leukocyte Esterase Large H (Negative) Urine RBC 54 H (0-5) /hpf Urine WBC 19 H (0-5) /hpf Amorphous Sediment Few H (None) /hpf Urine Bacteria Many H (None) /hpf Urine Mucus Rare H (None) /hpf 09/14/22 Range/Units 07:56 WBC (3.8-10.6) k/uL RBC (3.80-5.40) m/uL Hgb (11.4-16.0) gm/dL Hct (34.0-46.0) % RDW (11.5-15.5) % Neutrophils # (1.3-7.7) k/uL Carbon Dioxide (22-30) mmol/L BUN (7-17) mg/dL Creatinine (0.52-1.04) mg/dL POC Glucose (mg/dL) 194 H (70-110) mg/dL Magnesium (1.6-2.3) mg/dL Creatine Kinase (30-135) U/L Total Protein (6.3-8.2) g/dL Urine Appearance (Clear) Urine Protein (Negative) Urine Blood (Negative) Urine Nitrite (Negative) Ur Leukocyte Esterase (Negative) Urine RBC (0-5) /hpf Urine WBC (0-5) /hpf Amorphous Sediment (None) /hpf Urine Bacteria (None) /hpf Urine Mucus (None) /hpf Microbiology - Last 24 Hours (Table) 09/13/22 18:14 Urine Culture - Preliminary Urine,Voided
[2022-09-14 13:18] LABS: Glucose,Whole Blood 265 mg/dL (70-110)
[2022-09-14] MEDS: MAGNESIUM SULFATE-D5W PMX 1 GM in DEXTROSE/WATER 1 100ML.BAG IVPB SCH ×2 (14:23→16:23)
[2022-09-14 17:11] LABS: Glucose,Whole Blood 211 mg/dL (70-110)
[2022-09-14] MEDS: ALBUTEROL HFA INHALER INHALATION PRN (20:09)
[2022-09-14 20:27] LABS: Glucose,Whole Blood 198 mg/dL (70-110)
[2022-09-14] MEDS: DULoxetine HCL 60 MG CAPSULE.DR PO SCH (22:42)
[2022-09-14] MEDS: HEPARIN SODIUM,PORCINE/PF 5,000 UNIT/0.5 ML SYRINGE SQ SCH (22:42)
[2022-09-14] MEDS: MEMANTINE 10 MG TAB PO SCH (22:43)
[2022-09-15] MEDS ORDERED: SODIUM CHLORIDE 0.9% 500 ML 500 ML IV ONE (03:01)
[2022-09-15 06:15] LABS: Glucose,Whole Blood 79 mg/dL (70-110)
[2022-09-15] MEDS: LEVOTHYROXINE 75 MCG TAB PO SCH (06:46)
[2022-09-15] MEDS: NATEGLINIDE 60 MG PO SCH ×3 (06:46→17:17)
[2022-09-15] MEDS: PANTOPRAZOLE 40 MG TABLET PO SCH (06:46)
[2022-09-15] MEDS: INSULIN DETEMIR (LEVEMIR) 100 UNIT/ML SYR SQ SCH (06:47)
[2022-09-15] MEDS: ALBUTEROL HFA INHALER INHALATION PRN ×3 (08:42→21:03)
[2022-09-15 08:50] LABS: HCT 26.3 % (37.2-46.3); HGB 8.1 g/dL (12.0-15.0); MCH 28.3 pg (27.0-32.0); MCHC 30.8 g/dL (32.0-37.0); Mean Platelet Volume 12.4 fL (9.5-12.2); NRBC Per 100 WBC 0 /100 WBCS (0.0-0.0); Platelet Count 171 X 10*3/uL (140-440); RBC 2.86 X 10*6/uL (4.10-5.20); RDW 19.8 % (11.5-14.5); WBC 18.33 X 10*3/uL (4.50-10.00)
[2022-09-15 08:56] LABS: African American GFR (CKD) 15.5 (60.0-200.0); BUN/Creat Ratio 19.47 Ratio (12.00-20.00); Blood Urea Nitrogen 58.4 mg/dL (9.0-27.0); Magnesium 1.9 mg/dL (1.5-2.4); Non-African American GFR(CKD) 13.4 (60.0-200.0); Potassium 3.7 mmol/L (3.5-5.5)
[2022-09-15] MEDS ORDERED: MIDODRINE 5 MG TAB PO STA (09:24)
[2022-09-15] MEDS: NON FORMULARY DRUG (Mirabegron [Myrbetriq] 50 MG Tab.Er.24h) PO SCH (10:10)
[2022-09-15] MEDS: ASPIRIN 81 MG PO SCH (10:11)
[2022-09-15] MEDS: ASCORBIC ACID 500 MG TAB PO SCH (10:11)
[2022-09-15] MEDS: ATORVASTATIN 10 MG TAB PO SCH (10:11)
[2022-09-15] MEDS: CYANOCOBALAMIN 500 MCG TAB PO SCH (10:11)
[2022-09-15] MEDS: CHOLECALCIFEROL 125 MCG (5000 IU) TABLET PO SCH (10:11)
[2022-09-15] MEDS: buPROPion SR 100 MG TABLET.ER PO SCH ×2 (10:11→20:21)
[2022-09-15] MEDS: ISOSORBIDE MONONITRATE ER 30 MG TAB.ER.24H PO SCH (10:12)
[2022-09-15] MEDS: PREGABALIN 50 MG CAP PO SCH ×2 (10:12→20:17)
[2022-09-15] MEDS: LORATADINE 10 MG TAB PO SCH (10:12)
[2022-09-15] MEDS: HEPARIN SODIUM,PORCINE/PF 5,000 UNIT/0.5 ML SYRINGE SQ SCH ×2 (10:12→20:17)
[2022-09-15] MEDS: DONEPEZIL 10 MG TAB PO SCH ×2 (10:12→20:17)
--- NOTE | 2022-09-15 10:34 | US ---
EXAMINATION TYPE: US kidneys/renal and bladder DATE OF EXAM: 09/15/2022 COMPARISON: NONE CLINICAL HISTORY: uti, worsening kidney function. UTI, worsening kidney function. EXAM MEASUREMENTS: Right Kidney: 9.4 x 5.2 x 4.6 cm Left Kidney: 11.2 x 5.4 x 5.1 cm Right Kidney: No hydronephrosis or masses seen Left Kidney: Hyperechoic focus seen mid: 0.8 x 1.1 x 0.4 cm Bladder: Appears anechoic. Bilateral Jets seen: Right jet was seen only during exam. Incidental finding-multiple echogenic areas seen throughout the spleen= 0.5 cm in transverse. Renal cortex appears preserved and there is good cortical medullary differentiation. IMPRESSION: 1. Nonobstructing left renal calculus. 2. Incidental note made of splenic granuloma.
[2022-09-15] MEDS: FUROSEMIDE 20 MG TAB PO SCH (10:40)
[2022-09-15 11:07] LABS: Glucose,Whole Blood 71 mg/dL (70-110)
--- NOTE | 2022-09-15 11:08 | P.NPCON ---
History of Present Illness - Reason for Consult acute renal failure, chronic renal failure - History of Present Illness Reason for consultation: Acute kidney injury on chronic kidney disease History of present illness: Patient is a 87-year-old female seen in consultation for acute kidney injury on chronic kidney disease. Patient has chronic kidney disease stage IIIB with baseline creatinine 1.6-1.7 from 2019. Patient has not followed up in the office since May 2019. Creatinine this admission was 1.82 and is up to 3.0 today. Patient is not a reliable historian and is unsure why she came to the hospital. Patient presented with generalized weakness and poor intake. She is currently being treated for UTI. No fever or chills. White count is elevated at 18.3 today. Patient's blood pressure noted to be as low as 80/60-70 admission. She denies chest pain or shortness of breath. No vomiting or diarrhea. Patient does have history of diabetes. I don't see any NSAIDs and her home medication list. Echocardiogram from 2019 showed preserved ejection fraction. Patient was receiving oral Lasix which was stopped. She's currently receiving normal saline. Losartan and metolazone also discontinued. Last given 09/14/2022. Vital signs are stable. General: No acute distress. HEENT: Head exam is unremarkable. LUNGS: No audible rhonchi or wheezes. HEART: Rate and Rhythm are regular. ABDOMEN: Nontender. EXTREMITITES: No edema. Past Medical History Past Medical History: Cancer, Heart Failure, Diabetes Mellitus, GERD/Reflux, Hyperlipidemia, Hypertension, Memory Impairment, Osteoarthritis (OA), Sleep Apnea/CPAP/BIPAP, Thyroid Disorder Additional Past Medical History / Comment(s): hiatal hernia, chronic back pain, bilateral neuropathy of legs and feet, leg edema bilaterally, , , cervical and uterine cancer , ROSACEA History of Any Multi-Drug Resistant Organisms: None Reported Past Surgical History: Bariatric Surgery, Cholecystectomy, Heart Catheterization, Hernia Repair, Hysterectomy, Orthopedic Surgery Additional Past Surgical History / Comment(s): 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 Past Psychological History: Anxiety, Depression Smoking Status: Unknown if ever smoked Past Alcohol Use History: None Reported Past Drug Use History: None Reported - Past Family History Father Family Medical History: Cancer Additional Family Medical History / Comment(s): Father of prostate cancer at age 88 yrs. Mother Family Medical History: Cancer, Diabetes Mellitus, Myocardial Infarction ([place]) Additional Family Medical History / Comment(s): Mother at age 77yrs. Brother(s) Family Medical History: Blood Disorder, CVA/TIA, Diabetes Mellitus, Myocardial Infarction ([place]) Daughter(s) Family Medical History: Cancer Son(s) Family Medical History: No Reported History Medications and Allergies Home Medications Medication Instructions Recorded Confirmed Type Atorvastatin [Lipitor] 10 mg PO DAILY 08/01/15 09/13/22 History DULoxetine HCL [Cymbalta] 60 mg PO HS 08/01/15 09/13/22 History Desloratadine 5 mg PO DAILY 08/01/15 09/13/22 History Donepezil HCl [Aricept] 10 mg PO BID 08/01/15 09/13/22 History Mirabegron [Myrbetriq] 50 mg PO DAILY 08/01/15 09/13/22 History Pantoprazole [Protonix] 40 mg PO DAILY 08/01/15 09/13/22 History buPROPion HCL [Wellbutrin SR] 200 mg PO BID 08/01/15 09/13/22 History Aspirin EC [Ecotrin Low Dose] 81 mg PO QAM 06/17/16 09/13/22 History Isosorbide Mononitrate ER [Imdur] 30 mg PO DAILY 06/17/16 09/13/22 History Losartan [Cozaar] 25 mg PO DAILY 12/11/16 09/13/22 History Ascorbic Acid [Vitamin C] 500 mg PO DAILY 03/25/19 09/13/22 History Cyanocobalamin (Vitamin B-12) 2,500 mcg PO DAILY 03/25/19 09/13/22 History [Vitamin B-12] Furosemide [Lasix] 60 mg PO DAILY 03/25/19 09/13/22 History Albuterol Inhaler [Ventolin Hfa 1 - 2 puff INHALATION RT-Q6H PRN 09/13/22 09/13/22 History Inhaler] Cholecalciferol [Vitamin D3 (125 125 mcg PO DAILY 09/13/22 09/13/22 History Mcg = 5000 Iu)] Folate/Vitamin B-6/Biotin 1 tab PO DAILY 09/13/22 09/13/22 History [id number] Hydrocortisone Cream 1 applic TOPICAL BID PRN 09/13/22 09/13/22 History [Hydrocortisone 2.5% Cream] Insulin Aspart [NovoLOG Flexpen] See Protocol SQ AC-TID PRN 09/13/22 09/13/22 History Insulin Glargine,Hum.rec.anlog 45 units SQ PC-BRKFST 09/13/22 09/13/22 History [Lantus Solostar Pen] Ipratropium [place] 0.06%Nasal 2 spray EA NOSTRIL BID PRN 09/13/22 09/13/22 History [Atrovent Nasal 0.06%] Levothyroxine Sodium [Synthroid] 150 mcg PO DAILY 09/13/22 09/13/22 History Meclizine [Antivert] 12.5 mg PO TID PRN 09/13/22 09/13/22 History Memantine [Namenda] 10 mg PO HS 09/13/22 09/13/22 History Nateglinide [Starlix] 60 mg PO AC-TID 09/13/22 09/13/22 History Pregabalin [Lyrica] 50 mg PO BID 09/13/22 09/13/22 History allopurinoL [Zyloprim] 300 mg PO Q48H 09/13/22 09/13/22 History metOLazone [Zaroxolyn] 2.5 mg PO TUFR 09/13/22 09/13/22 History Allergies Allergy/AdvReac Type Severity Reaction Status Date / Time Penicillins Allergy Rash/Hives Verified 09/13/22 19:56 Sulfa (Sulfonamide Allergy Rash/Hives Verified 09/13/22 19:56 Antibiotics) Physical Exam Vitals: Vital Signs Temp Pulse Resp BP Pulse Ox 09/15/22 07:45 118/66 09/15/22 06:55 98.1 F 80 18 80/60 95 09/15/22 03:45 88/42 09/15/22 02:20 98.1 F 81 17 82/40 95 09/14/22 20:00 98.2 F 90 18 106/59 94 L 09/14/22 16:48 98.4 F 87 16 129/57 98 Intake and Output 09/14/22 09/15/22 09/15/22 22:59 06:59 14:59 Intake Total 500 Output Total 300 Balance -300 500 Intake: Oral 500 Output: Urine 300 Other: Voiding Method External Catheter # Voids 1 2 # Bowel Movements 0 Results - Lab Results Most recent lab results Calcium 9.0 mg/dL (8.7-10.3) 09/15/22 05:49 Magnesium 1.9 mg/dL (1.5-2.4) 09/15/22 05:49 09/15/22 05:49 09/15/22 05:49 Assessment and Plan Plan: Assessment: 1. Acute kidney injury secondary to ATN secondary to severe sepsis. Creatinine 3.0 today. Rule out obstructive uropathy. 2. Chronic kidney disease stage IIIB with baseline creatinine near 1.6-1.7 from 2019. Suspect nephrosclerosis and diabetic kidney disease. 3. Chronic diastolic CHF. 4. UTI on antibiotics. 5. Anemia of chronic kidney disease. Rule out iron deficiency. 6. Diabetes mellitus. Plan: Maintain IV fluids. Continue to hold diuretics. Check iron studies. Add midodrine 10 mg 3 times daily. Hold for systolic blood pressure greater than 115. Check bladder scan to make sure no urinary retention. Check renal ultrasound. Check a.m. cortisol level. Repeat labs in the morning. Thank you for the consultation. I will continue to follow the patient with you during her hospital stay.
[2022-09-15] MEDS: SODIUM CHLORIDE 0.9% 1,000 ML IV SCH ×2 (11:30→18:36)
[2022-09-15] MEDS: MIDODRINE 5 MG TAB PO SCH ×2 (13:24→17:20)
[2022-09-15 15:59] LABS: % Iron Saturation 7.52 (12.00-45.00); Ferritin 62.4 ng/mL (10.0-291.0)
[2022-09-15 16:08] LABS: Glucose,Whole Blood 124 mg/dL (70-110)
--- NOTE | 2022-09-15 16:15 | P.PN ---
Subjective Progress Note Date: 09/15/22 87-year-old female came in with complaints of for dysuria as well as decreased urine output. Patient is found to have abnormal urine and was admitted for urinary tract infection patient does have leukocytosis without any fever. Patient is feeling better at this time. Patient clinically doesn't have any obvious CHF symptoms patient doesn't have any pedal edema or elevated JVD a chest x-ray showed mild pleural effusions patient is on diuretics at home. I ordered a BNP patient is presently on fluids as well as diuretics, depending on the BNP one of these negative.. Patient has elevated creatinine 1.8 baseline is around 1.2. Epogen live Kamryn weakness and tiredness. 09/15/2022 Patient was seen and evaluated in follow-up today currently maintained on IV antibiotics in the form of ceftriaxone while awaiting for urine cultures to finalize. Patient is continued on gentle IV hydration as well with kidney function is worsening up to 3 today and have consulted nephrology and appreciate input and recommendations. Patient also with elevated WBC of 18.33 will consult infectious disease and appreciate input and recommendations. Urine culture preliminary showing gram-negative bacilli. She is currently afebrile continues to be Confused and a poor historian. Patient denies chest pain or shortness of breath. No reports of nausea or vomiting noted and patient reports tolerating diet. Oral intake is fair. Patient's blood pressures have been extremely low and being started on midodrine and will hold metolazone, losartan, and Lasix as well. Review of systems: Unable to completely assess as patient is a poor historian and reports she is not sure why she is here and reports to feeling fine PHYSICAL EXAMINATION: GENERAL: The patient is alert and oriented x2, not in any acute distress. Well developed, well nourished. Obese HEENT: Pupils are round and equally reacting to light. EOMI. No scleral icterus. No conjunctival pallor. Normocephalic, atraumatic. No pharyngeal erythema. No thyromegaly. CARDIOVASCULAR: S1 and S2 present. No murmurs, rubs, or gallops. PULMONARY: Chest is clear to auscultation, no wheezing or crackles. ABDOMEN: Soft, nontender, nondistended, normoactive bowel sounds. No palpable organomegaly. MUSCULOSKELETAL: No joint swelling or deformity. EXTREMITIES: No cyanosis, clubbing, or pedal edema. NEUROLOGICAL: Gross neurological examination did not reveal any focal deficits. Diffusely weak SKIN: No rashes. Assessment: -Acute urinary tract infection present on admission -Acute renal failure: Most probably secondary to diuretics, and hypotension -Congestive heart failure probably diastolic dysfunction not in CHF exacerbation at this time -Type 2 diabetes mellitus -Hyperlipidemia -Hypertension -Obesity, sleep apnea uses CPAP machine which will be continued -Hypothyroidism -Depression -generalized weakness secondary to is related muscle atrophy -DVT prophylaxis: Subcutaneous heparin -Full code The impression and plan of care has been dictated by Dulce Peñaloza, Nurse Practitioner as directed. Dr. Jose Luis MD I have performed a history and examination and MDM of this patient, discussed the same with the dictator, and agree with the dictator's assessment and plan as written ,documented as a scribe. Based on total visit time, I have performed more than 50% of the visit. Objective - Vital Signs Vital signs: Vital Signs Temp 98.1 F 09/15/22 06:55 Pulse 80 09/15/22 06:55 Resp 18 09/15/22 06:55 BP 80/60 09/15/22 06:55 Pulse Ox 95 09/15/22 06:55 FiO2 Intake & Output 09/14/22 09/15/22 09/15/22 18:59 06:59 18:59 Intake Total 500 Output Total 300 Balance -300 500 Intake: Oral 500 Output: Urine 300 Other: Voiding Method External Catheter External Catheter # Voids 1 2 # Bowel Movements 0 - Labs CBC & Chem 7: 09/15/22 05:49 09/15/22 05:49 Labs: Abnormal Lab Results - Last 24 Hours (Table) 09/14/22 09/14/22 09/14/22 Range/Units 13:13 17:07 20:25 WBC (4.50-10.00) X 10*3/uL RBC (4.10-5.20) X 10*6/uL Hgb (12.0-15.0) g/dL Hct (37.2-46.3) % MCHC (32.0-37.0) g/dL RDW (11.5-14.5) % MPV (9.5-12.2) fL BUN (9.0-27.0) mg/dL Creatinine (0.6-1.5) mg/dL Est GFR (CKD-EPI)AfAm (60.0-200.0) Est GFR (CKD-EPI)NonAf (60.0-200.0) Glucose (70-110) mg/dL POC Glucose (mg/dL) 265 H 211 H 198 H (70-110) mg/dL 09/15/22 09/15/22 Range/Units 05:49 05:49 WBC 18.33 H (4.50-10.00) X 10*3/uL RBC 2.86 L (4.10-5.20) X 10*6/uL Hgb 8.1 L (12.0-15.0) g/dL Hct 26.3 L (37.2-46.3) % MCHC 30.8 L (32.0-37.0) g/dL RDW 19.8 H (11.5-14.5) % MPV 12.4 H (9.5-12.2) fL BUN 58.4 H (9.0-27.0) mg/dL Creatinine 3.0 H (0.6-1.5) mg/dL Est GFR (CKD-EPI)AfAm 15.5 L (60.0-200.0) Est GFR (CKD-EPI)NonAf 13.4 L (60.0-200.0) Glucose 60 L (70-110) mg/dL POC Glucose (mg/dL) (70-110) mg/dL Microbiology - Last 24 Hours (Table) 09/13/22 16:50 Blood Culture - Preliminary Blood No Growth after 24 hours 09/13/22 17:14 Blood Culture - Preliminary Blood No Growth after 24 hours
[2022-09-15] MEDS: MEMANTINE 10 MG TAB PO SCH (20:17)
[2022-09-15] MEDS: DULoxetine HCL 60 MG CAPSULE.DR PO SCH (20:17)
[2022-09-15 20:18] LABS: Glucose,Whole Blood 135 mg/dL (70-110)
[2022-09-16 05:49] LABS: Glucose,Whole Blood 83 mg/dL (70-110)
[2022-09-16] MEDS: LEVOTHYROXINE 75 MCG TAB PO SCH (06:31)
[2022-09-16] MEDS: SODIUM CHLORIDE 0.9% 1,000 ML IV SCH (08:24)
[2022-09-16] MEDS: INSULIN DETEMIR (LEVEMIR) 100 UNIT/ML SYR SQ SCH (08:24)
[2022-09-16] MEDS: buPROPion SR 100 MG TABLET.ER PO SCH ×2 (08:25→20:28)
[2022-09-16] MEDS: allopurinoL 300 MG TAB PO SCH (08:25)
[2022-09-16] MEDS: ATORVASTATIN 10 MG TAB PO SCH (08:25)
[2022-09-16] MEDS: CHOLECALCIFEROL 125 MCG (5000 IU) TABLET PO SCH (08:25)
[2022-09-16] MEDS: LORATADINE 10 MG TAB PO SCH (08:25)
[2022-09-16] MEDS: DONEPEZIL 10 MG TAB PO SCH ×2 (08:25→20:28)
[2022-09-16] MEDS: PANTOPRAZOLE 40 MG TABLET PO SCH (08:25)
[2022-09-16] MEDS: HEPARIN SODIUM,PORCINE/PF 5,000 UNIT/0.5 ML SYRINGE SQ SCH ×2 (08:25→20:28)
[2022-09-16] MEDS: ASCORBIC ACID 500 MG TAB PO SCH (08:25)
[2022-09-16] MEDS: ASPIRIN 81 MG PO SCH (08:25)
[2022-09-16] MEDS: CYANOCOBALAMIN 500 MCG TAB PO SCH (08:25)
[2022-09-16] MEDS: PREGABALIN 50 MG CAP PO SCH ×2 (08:25→20:28)
[2022-09-16] MEDS: ISOSORBIDE MONONITRATE ER 30 MG TAB.ER.24H PO SCH (08:25)
[2022-09-16] MEDS: MIDODRINE 5 MG TAB PO SCH ×3 (08:26→17:51)
[2022-09-16] MEDS: NON FORMULARY DRUG (Mirabegron [Myrbetriq] 50 MG Tab.Er.24h) PO SCH (08:29)
[2022-09-16] MEDS: NATEGLINIDE 60 MG PO SCH ×3 (08:29→17:47)
[2022-09-16] MEDS: ALBUTEROL HFA INHALER INHALATION PRN ×3 (09:04→20:52)
[2022-09-16 09:16] LABS: African American GFR (CKD) 18.5 (60.0-200.0); Anion Gap 12.3 mmol/L (10.00-18.00); BUN/Creat Ratio 21.12 Ratio (12.00-20.00); Blood Urea Nitrogen 54.9 mg/dL (9.0-27.0); Calcium 8.8 mg/dL (8.7-10.3); Carbon Dioxide 25.7 mmol/L (20.0-27.5); Non-African American GFR(CKD) 15.9 (60.0-200.0); Potassium 3.6 mmol/L (3.5-5.5)
[2022-09-16] MEDS ORDERED: POTASSIUM CHLORIDE ER 20 MEQ TAB.ER PO STA (10:12)
--- NOTE | 2022-09-16 10:12 | P.PN ---
Subjective Patient is seen in follow-up for acute kidney injury on chronic kidney disease. Patient has chronic kidney disease stage III. Baseline creatinine 1.6-1.7 from 2019. Renal function better today. Oral intake is good. Nonoliguric. Blood pressure stable. No vomiting or diarrhea. Vital signs are stable. General: No acute distress. HEENT: Head exam is unremarkable. LUNGS: No audible rhonchi or wheezes. HEART: Rate and Rhythm are regular. ABDOMEN: Soft, no distention. EXTREMITITES: No edema. Objective - Vital Signs Vital signs: Vital Signs Temp 97.4 F L 09/16/22 07:08 Pulse 64 09/16/22 07:08 Resp 17 09/16/22 07:08 BP 113/55 09/16/22 07:08 Pulse Ox 96 09/16/22 07:08 FiO2 Intake & Output 09/15/22 09/16/22 09/16/22 18:59 06:59 18:59 Intake Total 1250 Output Total 200 3 Balance 1050 -3 Intake: Intake, IV Titration 900 Amount Sodium Chloride 0.9% 1, 900 000 ml @ 75 mls/hr IV . [id number] [facility] Rx#:[id number] Oral 350 Output: Urine 200 Urine/Stool Mix 3 Other: Voiding Method External Catheter External Catheter # Voids 1 3 # Bowel Movements 0 - Labs CBC & Chem 7: 09/15/22 05:49 09/16/22 06:19 Labs: Abnormal Lab Results - Last 24 Hours (Table) 09/15/22 09/15/22 09/15/22 Range/Units 05:49 16:07 20:16 BUN (9.0-27.0) mg/dL Creatinine (0.6-1.5) mg/dL Est GFR (CKD-EPI)AfAm (60.0-200.0) Est GFR (CKD-EPI)NonAf (60.0-200.0) BUN/Creatinine Ratio (12.00-20.00) Ratio POC Glucose (mg/dL) 124 H 135 H (70-110) mg/dL Iron 22 L (50-170) ug/dL % Saturation 7.52 L (12.00-45.00) 09/16/22 Range/Units 06:19 BUN 54.9 H (9.0-27.0) mg/dL Creatinine 2.6 H (0.6-1.5) mg/dL Est GFR (CKD-EPI)AfAm 18.5 L (60.0-200.0) Est GFR (CKD-EPI)NonAf 15.9 L (60.0-200.0) BUN/Creatinine Ratio 21.12 H (12.00-20.00) Ratio POC Glucose (mg/dL) (70-110) mg/dL Iron (50-170) ug/dL % Saturation (12.00-45.00) Microbiology - Last 24 Hours (Table) 09/13/22 16:50 Blood Culture - Preliminary Blood No Growth after 48 hours 09/13/22 17:14 Blood Culture - Preliminary Blood No Growth after 48 hours 09/13/22 18:14 Urine Culture - Preliminary Urine,Voided Gram Neg Bacilli Assessment and Plan Plan: Assessment: 1. Acute kidney injury secondary to ATN secondary to severe sepsis. Renal function improved. Creatinine 2.6 today. No hydronephrosis noted on kidney ultrasound. 2. Chronic kidney disease stage IIIB with baseline creatinine near 1.6-1.7 from 2019. Suspect nephrosclerosis and diabetic kidney disease. 3. Chronic diastolic CHF. 4. UTI on antibiotics. Urine culture positive for gram-negative bacilli. 5. Anemia of chronic kidney disease. Iron deficiency noted. 6. Diabetes mellitus. Plan: Maintain IV fluids - decrease rate to 50 mL an hour. Encourage oral intake. Add IV iron. Continue to hold diuretics. Maintain midodrine. Hold for systolic blood pressure greater than 115. Cortisol level not low. Continue to monitor renal function and urine output.
[2022-09-16] MEDS: SODIUM FERRIC GLUCONAT-SUCROSE 125 MG in SODIUM CHLORIDE 0.9% 100 ML IVPB SCH (10:57)
[2022-09-16 11:40] LABS: Glucose,Whole Blood 181 mg/dL (70-110)
[2022-09-16 12:13] LABS: Anisocytosis Slight; Basophils # (A) 0.1 k/uL (0-0.2); Basophils % (A) 1 %; Eosinophils # (A) 0.4 k/uL (0-0.7); Eosinophils % (A) 3 %; HCT 26.9 % (34.0-46.0); Lymphocytes # (A) 1.2 k/uL (1.0-4.8); Lymphocytes % (A) 11 %; MCH 30.1 pg (25.0-35.0); MCHC 33.3 g/dL (31.0-37.0); MCV 90.4 fL (80.0-100.0); Mean Platelet Volume 10.8; Monocytes # (A) 0.7 k/uL (0-1.0); Monocytes % (A) 6 %; Neutrophils # (A) 8.6 k/uL (1.3-7.7); Neutrophils % (A) 77 %; Platelet Count 182 k/uL (150-450); RBC 2.97 m/uL (3.80-5.40); RDW 18.1 % (11.5-15.5); WBC 11.2 k/uL (3.8-10.6)
[2022-09-16 17:12] LABS: Glucose,Whole Blood 209 mg/dL (70-110)
[2022-09-16] MEDS: DULoxetine HCL 60 MG CAPSULE.DR PO SCH (20:28)
[2022-09-16] MEDS: MEMANTINE 10 MG TAB PO SCH (20:28)
[2022-09-16 20:51] LABS: Glucose,Whole Blood 189 mg/dL (70-110)
--- NOTE | 2022-09-16 22:04 | P.CONS ---
History of Present Illness - Reason for Consult Consult date: 09/16/22 Urinary tract infection Requesting physician: Dulce Peñaloza - Chief Complaint Nausea vomiting x few days - History of Present Illness Patient is a 87-year-old female with multiple comorbidities presenting to the hospital 3 days ago for evaluation of generalized weakness decreased oral intake symptom has been going on for the last few days before presentation to the hospital with a chief complaint of nausea vomiting also noticed to have decreased urine output and foul-smelling urine concerning for a symptomatic urinary tract infection with the symptoms the patient was evaluated by the ER physician on arrival to the ER the patient was afebrile and no fever has been recorded subsequently patient did have a elevated BUN/creatinine and elevated white count positive UA patient was started on Rocephin IV fluid infectious disease was consulted for further management of antibiotic therapy patient was elevated good historian did mention that no further vomiting still complaining of feeling nauseated no significant abdominal pain or diarrhea urinary symptoms as mentioned above but no hematuria Review of Systems Positive point has been mentioned in the HPI rest of the systems are negative Past Medical History Past Medical History: Cancer, Heart Failure, Diabetes Mellitus, GERD/Reflux, Hyperlipidemia, Hypertension, Memory Impairment, Osteoarthritis (OA), Sleep Apnea/CPAP/BIPAP, Thyroid Disorder Additional Past Medical History / Comment(s): hiatal hernia, chronic back pain, bilateral neuropathy of legs and feet, leg edema bilaterally, , , cervical and uterine cancer , ROSACEA History of Any Multi-Drug Resistant Organisms: None Reported Past Surgical History: Bariatric Surgery, Cholecystectomy, Heart Ca theterization, Hernia Repair, Hysterectomy, Orthopedic Surgery Additional Past Surgical History / Comment(s): 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 Past Psychological History: Anxiety, Depression Smoking Status: Unknown if ever smoked Past Alcohol Use History: None Reported Past Drug Use History: None Reported - Past Family History Father Family Medical History: Cancer Additional Family Medical History / Comment(s): Father of prostate cancer at age 88 yrs. Mother Family Medical History: Cancer, Diabetes Mellitus, Myocardial Infarction ([place]) Additional Family Medical History / Comment(s): Mother at age 77yrs. Brother(s) Family Medical History: Blood Disorder, CVA/TIA, Diabetes Mellitus, Myocardial Infarction ([place]) Daughter(s) Family Medical History: Cancer Son(s) Family Medical History: No Reported History Medications and Allergies Home Medications Medication Instructions Recorded Confirmed Type Atorvastatin [Lipitor] 10 mg PO DAILY 08/01/15 09/13/22 History DULoxetine HCL [Cymbalta] 60 mg PO HS 08/01/15 09/13/22 History Desloratadine 5 mg PO DAILY 08/01/15 09/13/22 History Donepezil HCl [Aricept] 10 mg PO BID 08/01/15 09/13/22 History Mirabegron [Myrbetriq] 50 mg PO DAILY 08/01/15 09/13/22 History Pantoprazole [Protonix] 40 mg PO DAILY 08/01/15 09/13/22 History buPROPion HCL [Wellbutrin SR] 200 mg PO BID 08/01/15 09/13/22 History Aspirin EC [Ecotrin Low Dose] 81 mg PO QAM 06/17/16 09/13/22 History Isosorbide Mononitrate ER [Imdur] 30 mg PO DAILY 06/17/16 09/13/22 History Ascorbic Acid [Vitamin C] 500 mg PO DAILY 03/25/19 09/13/22 History Cyanocobalamin (Vitamin B-12) 2,500 mcg PO DAILY 03/25/19 09/13/22 History [Vitamin B-12] Albuterol Inhaler [Ventolin Hfa 1 - 2 puff INHALATION RT-Q6H PRN 09/13/22 09/13/22 History Inhaler] Cholecalciferol [Vitamin D3 (125 125 mcg PO DAILY 09/13/22 09/13/22 History Mcg = 5000 Iu)] Folate/Vitamin B-6/Biotin 1 tab PO DAILY 09/13/22 09/13/22 History [id number] Hydrocortisone Cream 1 applic TOPICAL BID PRN 09/13/22 09/13/22 History [Hydrocortisone 2.5% Cream] Insulin Aspart [NovoLOG Flexpen] See Protocol SQ AC-TID PRN 09/13/22 09/13/22 History Insulin Glargine,Hum.rec.anlog 45 units SQ PC-BRKFST 09/13/22 09/13/22 History [Lantus Solostar Pen] Ipratropium [place] 0.06%Nasal 2 spray EA NOSTRIL BID PRN 09/13/22 09/13/22 Hist ory [Atrovent Nasal 0.06%] Levothyroxine Sodium [Synthroid] 150 mcg PO DAILY 09/13/22 09/13/22 History Meclizine [Antivert] 12.5 mg PO TID PRN 09/13/22 09/13/22 History Memantine [Namenda] 10 mg PO HS 09/13/22 09/13/22 History Nateglinide [Starlix] 60 mg PO AC-TID 09/13/22 09/13/22 History allopurinoL [Zyloprim] 300 mg PO Q48H 09/13/22 09/13/22 History Acetaminophen Tab [Tylenol] 650 mg PO Q6HR PRN tab 09/17/22 Rx Midodrine [ProAmatine] 10 mg PO AC-TID tab 09/17/22 Rx Pregabalin [Lyrica] 50 mg PO BID #3 cap 09/17/22 Rx Ciprofloxacin HCl [Cipro] 250 mg PO Q12HR 7 Days #14 tab 09/20/22 Rx Allergies Allergy/AdvReac Type Severity Reaction Status Date / Time Penicillins Allergy Rash/Hives Verified 09/13/22 19:56 Sulfa (Sulfonamide Allergy Rash/Hives Verified 09/13/22 19:56 Antibiotics) Physical Exam Vitals: Vital Signs Temp Pulse Resp BP Pulse Ox 09/16/22 07:08 97.4 F L 64 17 113/55 96 09/16/22 02:00 97.8 F 91 16 118/62 98 09/15/22 18:05 98.6 F 60 16 129/69 92 L 09/15/22 13:30 97.9 F 70 18 84/40 98 09/15/22 13:15 84/40 Intake and Output 09/15/22 09/16/22 09/16/22 22:59 06:59 14:59 Intake Total 1250 Output Total 200 3 Balance 1050 -3 Intake: Intake, IV Titration 900 Amount Sodium Chloride 0.9% 1, 900 000 ml @ 75 mls/hr IV . [id number] [facility] Rx#:[id number] Oral 350 Output: Urine 200 Urine/Stool Mix 3 Other: Voiding Method External Catheter # Voids 1 3 # Bowel Movements 0 GENERAL DESCRIPTION: Elderly female lying in bed, no distress. No tachypnea or accessory muscle of respiration use. HEENT: Shows Pallor , no scleral icterus. Oral mucous membrane is dry. No pharyngeal erythema or thrush NECK: Trachea central, no thyromegaly. LUNGS: Unlabored breathing. Decreased breath sound at the base. No wheeze or crackle. HEART: S1, S2, regular rate and rhythm. No loud murmur ABDOMEN: Soft, no tenderness , guarding or rigidity, no organomegaly EXTREMITIES: No edema of feet. SKIN: No rash, no masses palpable. NEUROLOGICAL: The patient is awake, alert, oriented x2, mood and affect normal. Results CBC & Chem 7: 09/18/22 06:48 09/18/22 06:48 Labs: Abnormal Lab Results - Last 24 Hours (Table) 09/15/22 09/15/22 09/15/22 Range/Units 05:49 16:07 20:16 BUN (9.0-27.0) mg/dL Creatinine (0.6-1.5) mg/dL Est GFR (CKD-EPI)AfAm (60.0-200.0) Est GFR (CKD-EPI)NonAf (60.0-200.0) BUN/Creatinine Ratio (12.00-20.00) Ratio POC Glucose (mg/dL) 124 H 135 H (70-110) mg/dL Iron 22 L (50-170) ug/dL % Saturation 7.52 L (12.00-45.00) 09/16/22 Range/Units 06:19 BUN 54.9 H (9.0-27.0) mg/dL Creatinine 2.6 H (0.6-1.5) mg/dL Est GFR (CKD-EPI)AfAm 18.5 L (60.0-200.0) Est GFR (CKD-EPI)NonAf 15.9 L (60.0-200.0) BUN/Creatinine Ratio 21.12 H (12.00-20.00) Ratio POC Glucose (mg/dL) (70-110) mg/dL Iron (50-170) ug/dL % Saturation (12.00-45.00) Microbiology - Last 24 Hours (Table) 09/13/22 18:14 Urine Culture - Preliminary Urine,Voided Escherichia coli 09/13/22 16:50 Blood Culture - Preliminary Blood No Growth after 48 hours 09/13/22 17:14 Blood Culture - Preliminary Blood No Growth after 48 hours Assessment and Plan (1) Urinary tract infection Current Visit: Yes Status: Acute Code(s): N39.0 - URINARY TRACT INFECTION, SITE NOT SPECIFIED SNOMED Code(s): 19960604 Plan: 1patient presented to hospital with acute nausea vomiting decreased oral intake significantly foul-smelling and cloudy urine and some burning concerning for a symptomatic urinary tract infection from enteric gram-negative pathogen. 2patient to continue Rocephin 1 g daily while inpatient with a plan to finish therapy with oral antibiotics 3gentle IV fluid. 4ultrasound of the abdomen did not show any hydronephrosis. We will follow on clinical condition and cultures to further adjust medication if needed Thank you for this consultation we will follow the patient along with you Time with Patient: Greater than 30
--- NOTE | 2022-09-17 05:41 | P.PN ---
Subjective Progress Note Date: 09/16/22 87-year-old female came in with complaints of for dysuria as well as decreased urine output. Patient is found to have abnormal urine and was admitted for urinary tract infection patient does have leukocytosis without any fever. Patient is feeling better at this time. Patient clinically doesn't have any obvious CHF symptoms patient doesn't have any pedal edema or elevated JVD a chest x-ray showed mild pleural effusions patient is on diuretics at home. I ordered a BNP patient is presently on fluids as well as diuretics, depending on the BNP one of these negative.. Patient has elevated creatinine 1.8 baseline is around 1.2. Epogen live Kamryn weakness and tiredness. 09/15/2022 Patient was seen and evaluated in follow-up today currently maintained on IV antibiotics in the form of ceftriaxone while awaiting for urine cultures to finalize. Patient is continued on gentle IV hydration as well with kidney function is worsening up to 3 today and have consulted nephrology and appreciate input and recommendations. Patient also with elevated WBC of 18.33 will consult infectious disease and appreciate input and recommendations. Urine culture preliminary showing gram-negative bacilli. She is currently afebrile continues to be Confused and a poor historian. Patient denies chest pain or shortness of breath. No reports of nausea or vomiting noted and patient reports tolerating diet. Oral intake is fair. Patient's blood pressures have been extremely low and being started on midodrine and will hold metolazone, losartan, and Lasix as well. 09/16/2022 Patient is seen and evaluated this morning maintained on IV ceftriaxone and urine culture finalized with E. coli with sensitivities and infectious disease consulted as well as nephrology. Patient is continued on gentle IV hydration sh owing some improvement in kidney function test creatinine is now 2.6. Patient's more awake and alert as well today. Patient is afebrile and WBC is trending down. Per nursing staff patient is eating well and tolerating and eating all meals with no reports of nausea or vomiting noted. Diuretics on hold for now. Will follow-up with repeat labs. Patient is weak and will recommend physical therapy evaluation for possible ECF. Case management is following and aware. Review of systems: Constitutional: No reports of fatigue, fever, or chills Cardiovascular: No reports of chest pain or palpitations Respiratory: No reports of shortness of breath or cough GI: No reports of nausea, vomiting, or diarrhea : No reports of dysuria or retention Neurovascular: reports of generalized weakness All medications have been reviewed PHYSICAL EXAMINATION: GENERAL: The patient is alert and oriented x2, not in any acute distress. Well developed, well nourished. Obese HEENT: Pupils are round and equally reacting to light. EOMI. No scleral icterus. No conjunctival pallor. Normocephalic, atraumatic. No pharyngeal erythema. No thyromegaly. CARDIOVASCULAR: S1 and S2 present. No murmurs, rubs, or gallops. PULMONARY: Chest is clear to auscultation, no wheezing or crackles. ABDOMEN: Soft, nontender, nondistended, normoactive bowel sounds. No palpable organomegaly. MUSCULOSKELETAL: No joint swelling or deformity. EXTREMITIES: No cyanosis, clubbing, or pedal edema. NEUROLOGICAL: Gross neurological examination did not reveal any focal deficits. Diffusely weak SKIN: No rashes. Assessment: -Acute urinary tract infection present on admission, with E. coli in the cultures -Acute renal failure: Most probably secondary to diuretics, and hypotension -Congestive heart failure probably diastolic dysfunction not in CHF exacerbation at this time -Type 2 diabetes mellitus -Hyperlipidemia -Hypertension -Obesity, sleep apnea uses CPAP machine which will be continued -Hypothyroidism -Depression -generalized weakness secondary to is related muscle atrophy -DVT prophylaxis: Subcutaneous heparin -Full code Plan: Patient will be continued on IV ceftriaxone with infectious disease and nephro logy following. Patient is also continued on gentle IV hydration showing some improvement in kidney functions. Will recommend holding diuretics for now and will follow-up with repeat labs Urine culture finalized showing E. coli with sensitivities and will likely need oral antibiotics on discharge with infectious disease following Recommend PT/OT evaluation as patient is significantly weak and requiring almost a 2 person assist to get up out of the bed. Patient lives with daughter and plan is to return home although would recommend rehab for continued strength and mobility will await PT/OT therapy notes Encouraged oral intake and increased activity as tolerated Possible discharge in the next 24-48 hours The impression and plan of care has been dictated by Dulce Peñaloza, Nurse Practitioner as directed. Dr. Jose Luis MD I have performed a history and examination and MDM of this patient, discussed the same with the dictator, and agree with the dictator's assessment and plan as written ,documented as a scribe. Based on total visit time, I have performed more than 50% of the visit. Objective - Vital Signs Vital signs: Vital Signs Temp 97.4 F L 09/16/22 07:08 Pulse 64 09/16/22 07:08 Resp 17 09/16/22 07:08 BP 113/55 09/16/22 07:08 Pulse Ox 96 09/16/22 07:08 FiO2 Intake & Output 09/15/22 09/16/22 09/16/22 18:59 06:59 18:59 Intake Total 1250 Output Total 200 3 Balance 1050 -3 Intake: Intake, IV Titration 900 Amount Sodium Chloride 0.9% 1, 900 000 ml @ 75 mls/hr IV . [id number] JASEN Rx#:[id number] Oral 350 Output: Urine 200 Urine/Stool Mix 3 Other: Voiding Method External Catheter External Catheter # Voids 1 3 # Bowel Movements 0 - Labs CBC & Chem 7: 09/16/22 11:26 09/16/22 06:19 Labs: Abnormal Lab Results - Last 24 Hours (Table) 09/15/22 09/15/22 09/15/22 Range/Units 05:49 16:07 20:16 BUN (9.0-27.0) mg/dL Creatinine (0.6-1.5) mg/dL Est GFR (CKD-EPI)AfAm (60.0-200.0) Est GFR (CKD-EPI)NonAf (60.0-200.0) BUN/Creatinine Ratio (12.00-20.00) Ratio POC Glucose (mg/dL) 124 H 135 H (70-110) mg/dL Iron 22 L (50-170) ug/dL % Saturation 7.52 L (12.00-45.00) 09/16/22 Range/Units 06:19 BUN 54.9 H (9.0-27.0) mg/dL Creatinine 2.6 H (0.6-1.5) mg/dL Est GFR (CKD-EPI)AfAm 18.5 L (60.0-200.0) Est GFR (CKD-EPI)NonAf 15.9 L (60.0-200.0) BUN/Creatinine Ratio 21.12 H (12.00-20.00) Ratio POC Glucose (mg/dL) (70-110) mg/dL Iron (50-170) ug/dL % Saturation (12.00-45.00) Microbiology - Last 24 Hours (Table) 09/13/22 16:50 Blood Culture - Preliminary Blood No Growth after 48 hours 09/13/22 17:14 Blood Culture - Preliminary Blood No Growth after 48 hours 09/13/22 18:14 Urine Culture - Preliminary Urine,Voided Gram Neg Bacilli
[2022-09-17 06:04] LABS: Glucose,Whole Blood 80 mg/dL (70-110)
[2022-09-17] MEDS: NATEGLINIDE 60 MG PO SCH ×3 (06:43→18:30)
[2022-09-17] MEDS: LEVOTHYROXINE 75 MCG TAB PO SCH (06:44)
[2022-09-17] MEDS: MIDODRINE 5 MG TAB PO SCH ×3 (06:44→17:26)
[2022-09-17] MEDS: PANTOPRAZOLE 40 MG TABLET PO SCH (06:45)
[2022-09-17] MEDS: ALBUTEROL HFA INHALER INHALATION PRN ×3 (08:52→19:24)
[2022-09-17] MEDS: PREGABALIN 50 MG CAP PO SCH ×2 (08:53→20:26)
[2022-09-17] MEDS: ASPIRIN 81 MG PO SCH (08:53)
[2022-09-17] MEDS: CYANOCOBALAMIN 500 MCG TAB PO SCH (08:53)
[2022-09-17] MEDS: CHOLECALCIFEROL 125 MCG (5000 IU) TABLET PO SCH (08:53)
[2022-09-17] MEDS: ISOSORBIDE MONONITRATE ER 30 MG TAB.ER.24H PO SCH (08:53)
[2022-09-17] MEDS: ASCORBIC ACID 500 MG TAB PO SCH (08:53)
[2022-09-17] MEDS: LORATADINE 10 MG TAB PO SCH (08:53)
[2022-09-17] MEDS: DONEPEZIL 10 MG TAB PO SCH ×2 (08:53→20:26)
[2022-09-17] MEDS: HEPARIN SODIUM,PORCINE/PF 5,000 UNIT/0.5 ML SYRINGE SQ SCH ×2 (08:53→20:26)
[2022-09-17] MEDS: ATORVASTATIN 10 MG TAB PO SCH (08:53)
[2022-09-17] MEDS: INSULIN DETEMIR (LEVEMIR) 100 UNIT/ML SYR SQ SCH (08:54)
[2022-09-17] MEDS: buPROPion SR 100 MG TABLET.ER PO SCH ×2 (08:54→20:26)
--- NOTE | 2022-09-17 10:26 | P.PN ---
Subjective Patient is seen in follow-up for acute kidney injury on chronic kidney disease. Patient has chronic kidney disease stage IIIb with baseline creatinine 1.6-1.7 from 2019. Renal function improved. Oral intake is good. Nonoliguric. Blood pressure stable. No vomiting or diarrhea. Vital signs are stable. General: No acute distress. HEENT: Head exam is unremarkable. LUNGS: No audible rhonchi or wheezes. HEART: Rate and Rhythm are regular. ABDOMEN: Soft, no distention. EXTREMITITES: No edema. Objective - Vital Signs Vital signs: Vital Signs Temp 98.1 F 09/17/22 06:48 Pulse 72 09/17/22 06:48 Resp 18 09/17/22 06:48 BP 143/67 09/17/22 06:48 Pulse Ox 98 09/17/22 06:48 FiO2 Intake & Output 09/16/22 09/17/22 09/17/22 18:59 06:59 18:59 Output Total 700 2000 Balance -700 -2000 Output: Urine 700 2000 Other: Voiding Method External Catheter External Catheter # Bowel Movements 2 - Labs CBC & Chem 7: 09/16/22 11:26 09/16/22 06:19 Labs: Abnormal Lab Results - Last 24 Hours (Table) 09/16/22 09/16/22 09/16/22 Range/Units 11:26 11:38 17:11 WBC 11.2 H (3.8-10.6) k/uL RBC 2.97 L (3.80-5.40) m/uL Hgb 9.0 L (11.4-16.0) gm/dL Hct 26.9 L (34.0-46.0) % RDW 18.1 H (11.5-15.5) % Neutrophils # 8.6 H (1.3-7.7) k/uL POC Glucose (mg/dL) 181 H 209 H (70-110) mg/dL 09/16/22 Range/Units 20:49 WBC (3.8-10.6) k/uL RBC (3.80-5.40) m/uL Hgb (11.4-16.0) gm/dL Hct (34.0-46.0) % RDW (11.5-15.5) % Neutrophils # (1.3-7.7) k/uL POC Glucose (mg/dL) 189 H (70-110) mg/dL Microbiology - Last 24 Hours (Table) 09/13/22 16:50 Blood Culture - Preliminary Blood No Growth after 72 hours 09/13/22 17:14 Blood Culture - Preliminary Blood No Growth after 72 hours 09/13/22 18:14 Urine Culture - Preliminary Urine,Voided Escherichia coli Assessment and Plan Plan: Assessment: 1. Acute kidney injury secondary to ATN secondary to severe sepsis. Renal function improved. Creatinine 2.6 yesterday. No hydronephrosis noted on kidney ultrasound. 2. Chronic kidney disease stage IIIB with baseline creatinine near 1.6-1.7 from 2019. Suspect nephrosclerosis and diabetic kidney disease. 3. Chronic diastolic CHF. 4. UTI on antibiotics. Urine culture positive for E. coli. 5. Anemia of chronic kidney disease. Iron deficiency noted. 6. Diabetes mellitus. Plan: Hep-Lock IV fluids. Encourage oral intake. Maintain IV iron. Continue to hold diuretics. Maintain midodrine. Hold for systolic blood pressure greater than 115. Cortisol level not low. Continue to monitor renal function and urine output. Follow up outpatient 1 week post discharge.
[2022-09-17 10:57] LABS: Basophils # (A) 0.06 X 10*3/uL (0.00-0.10); Basophils % (A) 0.6 %; Eosinophils # (A) 0.42 X 10*3/uL (0.04-0.35); HCT 28.2 % (37.2-46.3); HGB 8.5 g/dL (12.0-15.0); Immature Grans, Automated 0.5 %; Lymphocytes # (A) 1.83 X 10*3/uL (0.90-5.00); Lymphocytes % (A) 17.5 %; MCH 27.7 pg (27.0-32.0); MCHC 30.1 g/dL (32.0-37.0); MCV 91.9 fL (80.0-97.0); Mean Platelet Volume 12.8 fL (9.5-12.2); Monocytes # (A) 0.94 X 10*3/uL (0.20-1.00); NRBC Per 100 WBC 0 /100 WBCS (0.0-0.0); Neutrophils # (A) 7.14 X 10*3/uL (1.80-7.70); Neutrophils % (A) 68.4 %; Platelet Count 185 X 10*3/uL (140-440); RBC 3.07 X 10*6/uL (4.10-5.20); RDW 19.7 % (11.5-14.5); WBC 10.44 X 10*3/uL (4.50-10.00)
[2022-09-17 11:06] LABS: African American GFR (CKD) 24.6 (60.0-200.0); Anion Gap 9.5 mmol/L (10.00-18.00); BUN/Creat Ratio 21.76 Ratio (12.00-20.00); Blood Urea Nitrogen 44.6 mg/dL (9.0-27.0); Calcium 8.9 mg/dL (8.7-10.3); Carbon Dioxide 25.4 mmol/L (20.0-27.5); Non-African American GFR(CKD) 21.3 (60.0-200.0); Potassium 3.9 mmol/L (3.5-5.5)
[2022-09-17 11:20] LABS: Glucose,Whole Blood 136 mg/dL (70-110)
[2022-09-17] MEDS ORDERED: CEFDINIR 300 MG CAP PO SCH (12:45)
[2022-09-17] MEDS: SODIUM CHLORIDE 0.9% 1,000 ML IV SCH (13:11)
[2022-09-17] MEDS: SODIUM FERRIC GLUCONAT-SUCROSE 125 MG in SODIUM CHLORIDE 0.9% 100 ML IVPB SCH (13:11)
[2022-09-17] MEDS: NON FORMULARY DRUG (Mirabegron [Myrbetriq] 50 MG Tab.Er.24h) PO SCH (13:11)
--- NOTE | 2022-09-17 13:13 | P.PN ---
Subjective Progress Note Date: 09/17/22 Principal diagnosis: E. coli urinary tract infection Patient is a 87-year-old female with multiple comorbidities presenting to the hospital for evaluation of generalized weakness decreased oral intake, diagnosed with UTI and renal insufficiency. On today's evaluation that is 09/17/2022, the patient denies having any fever or any chills she is breathing comfortably on room air and no chest pain shortness of breath or cough no abdominal pain patient has developed a sore to the lower back area has been combining of pain especially when she moves from one position to different 1 Objective - Vital Signs Vital signs: Vital Signs Temp 98.1 F 09/17/22 06:48 Pulse 72 09/17/22 08:00 Resp 18 09/17/22 08:00 BP 143/67 09/17/22 06:48 Pulse Ox 98 09/17/22 06:48 FiO2 Intake & Output 09/16/22 09/17/22 09/17/22 18:59 06:59 18:59 Output Total 700 2000 Balance -700 -2000 Output: Urine 700 2000 Other: Voiding Method External Catheter External Catheter External Catheter # Bowel Movements 2 - Exam GENERAL DESCRIPTION: An elderly female lying in bed in no distress RESPIRATORY SYSTEM: Unlabored breathing , decreased breath sounds at bases HEART: S1 S2 regular rate and rhythm , ABDOMEN: Soft , no tenderness Lower mid back across did have a erythematous patch likely stage I pressure ulcer - Labs CBC & Chem 7: 09/17/22 05:25 09/17/22 05:25 Labs: Abnormal Lab Results - Last 24 Hours (Table) 09/16/22 09/16/22 09/16/22 Range/Units 11:26 11:38 17:11 WBC 11.2 H (3.8-10.6) k/uL RBC 2.97 L (3.80-5.40) m/uL Hgb 9.0 L (11.4-16.0) gm/dL Hct 26.9 L (34.0-46.0) % MCHC (32.0-37.0) g/dL RDW 18.1 H (11.5-15.5) % MPV (9.5-12.2) fL Immature Gran # (0.00-0.04) X 10*3/uL Neutrophils # 8.6 H (1.3-7.7) k/uL Eosinophils # (0.04-0.35) X 10*3/uL Anion Gap (10.00-18.00) mmol/L BUN (9.0-27.0) mg/dL Creatinine (0.6-1.5) mg/dL Est GFR (CKD-EPI)AfAm (60.0-200.0) Est GFR (CKD-EPI)NonAf (60.0-200.0) BUN/Creatinine Ratio (12.00-20.00) Ratio POC Glucose (mg/dL) 181 H 209 H (70-110) mg/dL 09/16/22 09/17/22 09/17/22 Range/Units 20:49 05:25 05:25 WBC 10.44 H (3.8-10.6) k/uL RBC 3.07 L (3.80-5.40) m/uL Hgb 8.5 L (11.4-16.0) gm/dL Hct 28.2 L (34.0-46.0) % MCHC 30.1 L (32.0-37.0) g/dL RDW 19.7 H (11.5-15.5) % MPV 12.8 H (9.5-12.2) fL Immature Gran # 0.05 H (0.00-0.04) X 10*3/uL Neutrophils # (1.3-7.7) k/uL Eosinophils # 0.42 H (0.04-0.35) X 10*3/uL Anion Gap 9.50 L (10.00-18.00) mmol/L BUN 44.6 H (9.0-27.0) mg/dL Creatinine 2.1 H (0.6-1.5) mg/dL Est GFR (CKD-EPI)AfAm 24.6 L (60.0-200.0) Est GFR (CKD-EPI)NonAf 21.3 L (60.0-200.0) BUN/Creatinine Ratio 21.76 H (12.00-20.00) Ratio POC Glucose (mg/dL) 189 H (70-110) mg/dL 09/17/22 Range/Units 11:19 WBC (3.8-10.6) k/uL RBC (3.80-5.40) m/uL Hgb (11.4-16.0) gm/dL Hct (34.0-46.0) % MCHC (32.0-37.0) g/dL RDW (11.5-15.5) % MPV (9.5-12.2) fL Immature Gran # (0.00-0.04) X 10*3/uL Neutrophils # (1.3-7.7) k/uL Eosinophils # (0.04-0.35) X 10*3/uL Anion Gap (10.00-18.00) mmol/L BUN (9.0-27.0) mg/dL Creatinine (0.6-1.5) mg/dL Est GFR (CKD-EPI)AfAm (60.0-200.0) Est GFR (CKD-EPI)NonAf (60.0-200.0) BUN/Creatinine Ratio (12.00-20.00) Ratio POC Glucose (mg/dL) 136 H (70-110) mg/dL Microbiology - Last 24 Hours (Table) 09/13/22 16:50 Blood Culture - Preliminary Blood No Growth after 72 hours 09/13/22 17:14 Blood Culture - Preliminary Blood No Growth after 72 hours 09/13/22 18:14 Urine Culture - Preliminary Urine,Voided Escherichia coli Assessment and Plan (1) Urinary tract infection Current Visit: Yes Status: Acute Code(s): N39.0 - URINARY TRACT INFECTION, SITE NOT SPECIFIED SNOMED Code(s): 19402906 Plan: 1patient presented to hospital with acute nausea vomiting decreased oral intake significantly foul-smelling and cloudy urine and some burning concerning for a symptomatic urinary tract infection from enteric gram-negative pathogen. 2patient ultrasound of the abdomen did not show any hydronephrosis. 3patient has lost her IV we will switch antibiotic to oral Omnicef 4upper back stage I pressure ulcer we will apply a skin protectant cream and keep the area off the pressure Time with Patient: Less than 30
[2022-09-17] MEDS: CEFDINIR 300 MG CAP PO SCH (13:37)
--- NOTE | 2022-09-17 13:46 | P.DS ---
Providers Date of admission: 09/13/22 20:55 Expected date of discharge: 09/17/22 Attending physician: Jose De Jesus Aguila Consults: 09/15/22 09:26 Consult Physician Urgent Consulting Provider: Ghulam Estrada Consult Reason/Comments: UTI, deandra Do you want consulting provider notified?: Yes 09/15/22 15:57 Consult Physician Urgent Consulting Provider: Keon Galdamez Consult Reason/Comments: UTI Do you want consulting provider notified?: Yes Primary care physician: Malcolm [facility] Course: Final diagnosis -Acute urinary tract infection present on admission, with E. coli in the cultures -Acute renal failure: Most probably secondary to diuretics, and hypotension, trending down -Congestive heart failure probably diastolic dysfunction not in CHF exacerbation at this time -Type 2 diabetes mellitus -Hyperlipidemia -Hypertension -Obesity, sleep apnea uses CPAP machine which will be continued -Hypothyroidism -Depression -Excoriation and maceration noted of the mid lower back region of the skin secondary to immobility and incontinence -medical debility -generalized weakness secondary muscle atrophy -DVT prophylaxis: Subcutaneous heparin -Full code Discharge disposition Patient is being discharged in a stable condition with guarded prognosis to [facility] the [place] to continue PT/OT therapy. Patient will follow-up with Dr. Schuster in the outpatient setting upon discharge. Patient is to continue with oral Cefdinir twice daily for the next 1 week to complete the course. Patient to continue with barrier cream to the mid lumbar back region and offloading to that area and keeping the area open and dry as much as possible. Total time taken is greater than 35 minutes. Hospital course This is a 87-year-old female who was recently admitted with weakness and found to have an acute urinary tract infection with some kidney injury and being closely monitored. Patient does have congestive heart failure maintained on diuretics also having hypotension on admission causing worsening kidney functions. Patient evaluated by nephrology and kidney functions are trending down would recommend holding diuretics until follow-up in the next few days with repeat labs and outpatient nephrology follow-up. Patient was clinically dry on admission with no signs of CHF exacerbation. Patient also confused although appears baseline although much more awake and alert. Patient with significant weakness and physical therapy evaluated the patient almost two-person assist recommending physical therapy at subacute rehab and patient initially was not agreeable with this though. Referral placed in [facility] able to accept the patient. Patient also noted to be lying in the bed most of the day and reports that she sits in a recliner at home throughout most of the day as well and noticed some excoriation that could possibly lead to a pressure ulcer stage I of the back there is no signs of infection or cellulitis of this area. Would recommend thin layer of barrier cream and/or some nystatin powder and offloading along with keeping that area open and dry and offloaded and in the chair at least 3 times per day. Patient urine cultures finalized showing E. coli with infectious disease following and patient will continue on oral Omnicef for the next 1 week to complete the course. She has a diabetic and maintained on long- acting insulin and would recommend Accu-Cheks before meals and at bedtime along with consistent carb diet. May use sliding scale as needed although was not required during hospitalization. Recommend repeat labs of CBC and BMP in the next 2-3 days. Patient is medically stable for discharge and will be going to [facility] today. Currently no reports of chest pain, shortness of breath, or palpitations. Patient is afebrile. No reports of nausea or vomiting and patient is tolerating diet. Patient will be going to [facility] on the [place] today. Guarded prognosis. Physical exam: Gen: This is a 87-year-old female who is awake, alert and oriented 2, well- developed, well-nourished, obese HEENT: Head is atraumatic, normocephalic. Pupils equal, round. Sclerae is anicteric. NECK: Supple. No JVD. No lymphadenopathy. No thyromegaly. LUNGS: Clear to auscultation. No wheezes or rhonchi. No intercostal retractions. HEART: Regular rate and rhythm. No murmur. ABDOMEN: Soft. Obese Bowel sounds are present. No masses. No tenderness. EXTREMITIES: Bilateral pedal edema. No calf tenderness. Bilateral lower extremity chronic edema noted with some warm fungal areas of the popliteal regions bilaterally with no surrounding redness or cellulitis NEUROLOGICAL: Patient is awake, alert and oriented x2. Cranial nerves 2 through 12 are grossly intact. Diffuse weakness Please refer to medication reconciliation sheet for a list of medications. The impression and plan of care has been dictated by Dulce Peñaloza, Nurse Practitioner as directed. Dr. Jose Luis MD I have performed a history and examination and MDM of this patient, discussed the same with the dictator, and agree with the dictator's assessment and plan as written ,documented as a scribe. Based on total visit time, I have performed more than 50% of the visit. Patient Condition at Discharge: Fair Plan - Discharge Summary New Discharge Prescriptions: New Acetaminophen Tab [Tylenol] 650 mg PO Q6HR PRN tab PRN Reason: Mild Pain Or Fever > 100.5 Midodrine [ProAmatine] 10 mg PO AC-TID tab Cefdinir [Omnicef] 300 mg PO Q12HR 7 Days #14 capsule Continue Desloratadine 5 mg PO DAILY Pantoprazole [Protonix] 40 mg PO DAILY Donepezil HCl [Aricept] 10 mg PO BID DULoxetine HCL [Cymbalta] 60 mg PO HS buPROPion HCL [Wellbutrin SR] 200 mg PO BID Mirabegron [Myrbetriq] 50 mg PO DAILY Atorvastatin [Lipitor] 10 mg PO DAILY Aspirin EC [Ecotrin Low Dose] 81 mg PO QAM Isosorbide Mononitrate ER [Imdur] 30 mg PO DAILY Cyanocobalamin (Vitamin B-12) [Vitamin B-12] 2,500 mcg PO DAILY Ascorbic Acid [Vitamin C] 500 mg PO DAILY Levothyroxine Sodium [Synthroid] 150 mcg PO DAILY Insulin Glargine,Hum.rec.anlog [Lantus Solostar Pen] 45 units SQ PC-BRKFST Memantine [Namenda] 10 mg PO HS Meclizine [Antivert] 12.5 mg PO TID PRN PRN Reason: Vertigo Ipratropium [place] 0.06%Nasal [Atrovent Nasal 0.06%] 2 spray EA NOSTRIL BID PRN PRN Reason: Allergy Symptoms allopurinoL [Zyloprim] 300 mg PO Q48H Cholecalciferol [Vitamin D3 (125 Mcg = 5000 Iu)] 125 mcg PO DAILY Nateglinide [Starlix] 60 mg PO AC-TID Insulin Aspart [NovoLOG Flexpen] See Protocol SQ AC-TID PRN PRN Reason: BLOOD SUGAR OVER 150 Hydrocortisone Cream [Hydrocortisone 2.5% Cream] 1 applic TOPICAL BID PRN PRN Reason: Dry Skin Albuterol Inhaler [Ventolin Hfa Inhaler] 1 - 2 puff INHALATION RT-Q6H PRN PRN Reason: Shortness Of Breath Folate/Vitamin B-6/Biotin [id number] 1 tab PO DAILY Pregabalin [Lyrica] 50 mg PO BID #3 cap Discontinued Losartan [Cozaar] 25 mg PO DAILY Furosemide [Lasix] 60 mg PO DAILY metOLazone [Zaroxolyn] 2.5 mg PO TUFR Discharge Medication List Atorvastatin [Lipitor] 10 mg PO DAILY 08/01/15 [History] DULoxetine HCL [Cymbalta] 60 mg PO HS 08/01/15 [History] Desloratadine 5 mg PO DAILY 08/01/15 [History] Donepezil HCl [Aricept] 10 mg PO BID 08/01/15 [History] Mirabegron [Myrbetriq] 50 mg PO DAILY 08/01/15 [History] Pantoprazole [Protonix] 40 mg PO DAILY 08/01/15 [History] buPROPion HCL [Wellbutrin SR] 200 mg PO BID 08/01/15 [History] Aspirin EC [Ecotrin Low Dose] 81 mg PO QAM 06/17/16 [History] Isosorbide Mononitrate ER [Imdur] 30 mg PO DAILY 06/17/16 [History] Ascorbic Acid [Vitamin C] 500 mg PO DAILY 03/25/19 [History] Cyanocobalamin (Vitamin B-12) [Vitamin B-12] 2,500 mcg PO DAILY 03/25/19 [History] Albuterol Inhaler [Ventolin Hfa Inhaler] 1 - 2 puff INHALATION RT-Q6H PRN 09/13/22 [History] Cholecalciferol [Vitamin D3 (125 Mcg = 5000 Iu)] 125 mcg PO DAILY 09/13/22 [History] Folate/Vitamin B-6/Biotin [id number] 1 tab PO DAILY 09/13/22 [History] Hydrocortisone Cream [Hydrocortisone 2.5% Cream] 1 applic TOPICAL BID PRN 09/13/22 [History] Insulin Aspart [NovoLOG Flexpen] See Protocol SQ AC-TID PRN 09/13/22 [History] Insulin Glargine,Hum.rec.anlog [Lantus Solostar Pen] 45 units SQ PC-BRKFST 09/13/22 [History] Ipratropium [place] 0.06%Nasal [Atrovent Nasal 0.06%] 2 spray EA NOSTRIL BID PRN 09/13/22 [History] Levothyroxine Sodium [Synthroid] 150 mcg PO DAILY 09/13/22 [History] Meclizine [Antivert] 12.5 mg PO TID PRN 09/13/22 [History] Memantine [Namenda] 10 mg PO HS 09/13/22 [History] Nateglinide [Starlix] 60 mg PO AC-TID 09/13/22 [History] allopurinoL [Zyloprim] 300 mg PO Q48H 09/13/22 [History] Acetaminophen Tab [Tylenol] 650 mg PO Q6HR PRN tab 09/17/22 [Rx] Cefdinir [Omnicef] 300 mg PO Q12HR 7 Days #14 capsule 09/17/22 [Rx] Midodrine [ProAmatine] 10 mg PO AC-TID tab 09/17/22 [Rx] Pregabalin [Lyrica] 50 mg PO BID #3 cap 09/17/22 [Rx] Follow up Appointment(s)/Referral(s): Malcolm Miranda MD [Primary Care Provider] - 1-2 days Ghulam Estrada DO [STAFF PHYSICIAN] - 1 Week Ambulatory/Diagnostic Orders: Complete Blood Count w/diff [LAB.AMB] Time Frame: 3 Days, Location: None Selected Activity/Diet/Wound Care/Special Instructions: Patient is going to [facility] on the [place] Activity as tolerated Continue with consistent carb diet Recommend monitoring Accu-Cheks before meals and at bedtime and may use sliding scale as needed, continue long-acting insulin Recommend repeat labs in the next 2-3 days to monitor CBC and kidney functions Recommend follow-up with primary care provider on discharge Continue taking antibiotics for 1 week to complete the course Follow-up with nephrology outpatient Patient with some excoriation of the mid lower back as patient was lying for over 24 hours and appears excoriated and would recommend keeping the area dry and offloaded and sitting up in the chair more often at least 3 times per day Infectious disease recommends a very thin barrier paste application to the area Patient to continue with nystatin powder to the folds of the breasts and popliteal areas and moisture wicking material as well Amended holding diuretics including metolazone and Lasix until follow-up labs and follow-up with nephrology Discharge Disposition: TRANSFER TO SNF/ECF
[2022-09-17 16:27] LABS: Glucose,Whole Blood 228 mg/dL (70-110)
[2022-09-17] MEDS: MEMANTINE 10 MG TAB PO SCH (20:26)
[2022-09-17] MEDS: DULoxetine HCL 60 MG CAPSULE.DR PO SCH (20:26)
[2022-09-17 20:43] LABS: Glucose,Whole Blood 256 mg/dL (70-110)
--- NOTE | 2022-09-18 05:54 | P.PN ---
Subjective Progress Note Date: 09/17/22 87-year-old female came in with complaints of for dysuria as well as decreased urine output. Patient is found to have abnormal urine and was admitted for urinary tract infection patient does have leukocytosis without any fever. Patient is feeling better at this time. Patient clinically doesn't have any obvious CHF symptoms patient doesn't have any pedal edema or elevated JVD a chest x-ray showed mild pleural effusions patient is on diuretics at home. I ordered a BNP patient is presently on fluids as well as diuretics, depending on the BNP one of these negative.. Patient has elevated creatinine 1.8 baseline is around 1.2. Epogen live Kamryn weakness and tiredness. 09/15/2022 Patient was seen and evaluated in follow-up today currently maintained on IV antibiotics in the form of ceftriaxone while awaiting for urine cultures to finalize. Patient is continued on gentle IV hydration as well with kidney function is worsening up to 3 today and have consulted nephrology and appreciate input and recommendations. Patient also with elevated WBC of 18.33 will consult infectious disease and appreciate input and recommendations. Urine culture preliminary showing gram-negative bacilli. She is currently afebrile continues to be Confused and a poor historian. Patient denies chest pain or shortness of breath. No reports of nausea or vomiting noted and patient reports tolerating diet. Oral intake is fair. Patient's blood pressures have been extremely low and being started on midodrine and will hold metolazone, losartan, and Lasix as well. 09/16/2022 Patient is seen and evaluated this morning maintained on IV ceftriaxone and urine culture finalized with E. coli with sensitivities and infectious disease consulted as well as nephrology. Patient is continued on gentle IV hydration sh owing some improvement in kidney function test creatinine is now 2.6. Patient's more awake and alert as well today. Patient is afebrile and WBC is trending down. Per nursing staff patient is eating well and tolerating and eating all meals with no reports of nausea or vomiting noted. Diuretics on hold for now. Will follow-up with repeat labs. Patient is weak and will recommend physical therapy evaluation for possible ECF. Case management is following and aware. 09/17/2022 Patient was seen and evaluated in follow-up this morning currently sitting up in the chair. Patient reporting some mid to lower back tenderness and skin is erythematous and excoriated appears to be somewhat macerated as well. Per nursing staff patient had been laying in the bed for over 48 hours and has been incontinent. Infectious disease following and patient was continued on IV antibiotics although patient accidentally removed her IV and is now transition to oral Omnicef as urine culture showed E. coli. Some further cultures developing showing Morganella with some sensitivities. Patient was scheduled to be discharged to [facility] for continued PT/OT therapy for significant weakness. Patient is a 2 person assist on getting up and standing. Patient also has multiple folds in the skin given her body habitus that appeared yeastlike and would recommend using the moisturizing material in the folds as well as some nystatin powder. Patient is afebrile with no reports of chest pain or shortness of breath. Patient denies nausea or vomiting and is tolerating diet. Review of systems: Constitutional: No reports of fatigue, fever, or chills Cardiovascular: No reports of chest pain or palpitations Respiratory: No reports of shortness of breath or cough GI: No reports of nausea, vomiting, or diarrhea : No reports of dysuria or retention Neurovascular: reports of generalized weakness All medications have been reviewed PHYSICAL EXAMINATION: GENERAL: The patient is alert and oriented x2, not in any acute distress. Well developed, well nourished. Obese HEENT: Pupils are round and equally reacting to light. EOMI. No scleral icterus. No conjunctival pallor. Normocephalic, atraumatic. No pharyngeal erythema. No thyromegaly. CARDIOVASCULAR: S1 and S2 present. No murmurs, rubs, or gallops. PULMONARY: Chest is clear to auscultation, no wheezing or crackles. ABDOMEN: Soft, nontender, nondistended, normoactive bowel sounds. No palpable organomegaly. MUSCULOSKELETAL: No joint swelling or deformity. EXTREMITIES: No cyanosis, clubbing, significant bilateral lower extremity chronic edema NEUROLOGICAL: Gross neurological examination did not reveal any focal deficits. Diffusely weak SKIN: No rashes. Lower to mid back pain band like strip with redness and discomfort, appears excoriated and somewhat macerated Assessment: -Acute urinary tract infection present on admission, with E. coli in the cultures -Acute renal failure: Most probably secondary to diuretics, and hypotension -Congestive heart failure probably diastolic dysfunction not in CHF exacerbation at this time -Skin excoriation and maceration of the lower to mid back region, most likely secondary to moisture and incontinence of urine with significant immobility, concerns for stage I pressure ulcer -Type 2 diabetes mellitus -Hyperlipidemia -Hypertension -Obesity, sleep apnea uses CPAP machine which will be continued -Hypothyroidism -Depression -generalized weakness secondary to is related muscle atrophy -DVT prophylaxis: Subcutaneous heparin -Full code Plan: Patient will be continued on oral Omnicef as patient lost IV access with infectious disease and nephrology following. Recommend continue holding diuretics for now and will monitor kidney functions. Nephrology is following as well Urine culture finalized showing E. coli with sensitivities and will need oral antibiotics on discharge with infectious disease following Recommend PT/OT daily evaluation as patient is significantly weak and requiring almost a 2 person assist to get up out of the bed. Unfortunately there is no physical therapy over the weekend and encouraged the nursing staff to have the patient up and out of the bed at least 3 times per day Daughter was concerned of a rash on her back although there is no rash but appears to be a band-like strip of excoriated skin with maceration and would recommend strict offloading, frequent position changes, sitting up in a chair, avoiding moisture to the area and may use an extremely thin layer of barrier paste to the area or some nystatin powder. Infectious disease following with concerns for stage I pressure ulcer of the area although does not appear to be a pressure ulcer at this time. Encouraged oral intake and increased activity as tolerated Patient was scheduled to be discharged to [facility] and daughter is contesting the discharge with case management following in undergoing the appeal process. Unfortunately [facility] is unable to accept patients over the weekend and will likely not discharge until Tuesday. The impression and plan of care has been dictated by Dulce Peñaloza, Nurse Practitioner as directed. Dr. Jose Luis MD I have performed a history and examination and MDM of this patient, discussed the same with the dictator, and agree with the dictator's assessment and plan as written ,documented as a scribe. Based on total visit time, I have performed more than 50% of the visit. Objective - Vital Signs Vital signs: Vital Signs Temp 98.1 F 09/17/22 06:48 Pulse 72 09/17/22 06:48 Resp 18 09/17/22 06:48 BP 143/67 09/17/22 06:48 Pulse Ox 98 09/17/22 06:48 FiO2 Intake & Output 09/16/22 09/17/22 09/17/22 18:59 06:59 18:59 Output Total 700 2000 Balance -700 -2000 Output: Urine 700 2000 Other: Voiding Method External Catheter External Catheter # Bowel Movements 2 - Labs CBC & Chem 7: 09/17/22 05:25 09/17/22 05:25 Labs: Abnormal Lab Results - Last 24 Hours (Table) 09/16/22 09/16/22 09/16/22 Range/Units 11:26 11:38 17:11 WBC 11.2 H (3.8-10.6) k/uL RBC 2.97 L (3.80-5.40) m/uL Hgb 9.0 L (11.4-16.0) gm/dL Hct 26.9 L (34.0-46.0) % RDW 18.1 H (11.5-15.5) % Neutrophils # 8.6 H (1.3-7.7) k/uL POC Glucose (mg/dL) 181 H 209 H (70-110) mg/dL 09/16/22 Range/Units 20:49 WBC (3.8-10.6) k/uL RBC (3.80-5.40) m/uL Hgb (11.4-16.0) gm/dL Hct (34.0-46.0) % RDW (11.5-15.5) % Neutrophils # (1.3-7.7) k/uL POC Glucose (mg/dL) 189 H (70-110) mg/dL Microbiology - Last 24 Hours (Table) 09/13/22 16:50 Blood Culture - Preliminary Blood No Growth after 72 hours 09/13/22 17:14 Blood Culture - Preliminary Blood No Growth after 72 hours 09/13/22 18:14 Urine Culture - Preliminary Urine,Voided Escherichia coli
[2022-09-18 06:20] LABS: Glucose,Whole Blood 112 mg/dL (70-110)
[2022-09-18] MEDS: LEVOTHYROXINE 75 MCG TAB PO SCH (06:42)
[2022-09-18] MEDS: INSULIN DETEMIR (LEVEMIR) 100 UNIT/ML SYR SQ SCH (06:42)
[2022-09-18] MEDS: MIDODRINE 5 MG TAB PO SCH ×3 (06:42→17:25)
[2022-09-18] MEDS: PANTOPRAZOLE 40 MG TABLET PO SCH (06:42)
[2022-09-18] MEDS: NATEGLINIDE 60 MG PO SCH ×3 (06:44→17:18)
[2022-09-18] MEDS: ATORVASTATIN 10 MG TAB PO SCH (08:07)
[2022-09-18] MEDS: CYANOCOBALAMIN 500 MCG TAB PO SCH (08:07)
[2022-09-18] MEDS: allopurinoL 300 MG TAB PO SCH (08:07)
[2022-09-18] MEDS: CEFDINIR 300 MG CAP PO SCH (08:07)
[2022-09-18] MEDS: buPROPion SR 100 MG TABLET.ER PO SCH ×2 (08:07→22:08)
[2022-09-18] MEDS: LORATADINE 10 MG TAB PO SCH (08:07)
[2022-09-18] MEDS: CHOLECALCIFEROL 125 MCG (5000 IU) TABLET PO SCH (08:07)
[2022-09-18] MEDS: HEPARIN SODIUM,PORCINE/PF 5,000 UNIT/0.5 ML SYRINGE SQ SCH ×2 (08:07→22:08)
[2022-09-18] MEDS: DONEPEZIL 10 MG TAB PO SCH ×2 (08:07→22:08)
[2022-09-18] MEDS: ASPIRIN 81 MG PO SCH (08:07)
[2022-09-18] MEDS: PREGABALIN 50 MG CAP PO SCH ×2 (08:07→22:08)
[2022-09-18] MEDS: ISOSORBIDE MONONITRATE ER 30 MG TAB.ER.24H PO SCH (08:07)
[2022-09-18] MEDS: ASCORBIC ACID 500 MG TAB PO SCH (08:07)
[2022-09-18] MEDS: NON FORMULARY DRUG (Mirabegron [Myrbetriq] 50 MG Tab.Er.24h) PO SCH (08:10)
--- NOTE | 2022-09-18 10:18 | P.PN ---
Subjective Progress Note Date: 09/18/22 Principal diagnosis: This is a 87-year-old female seen in consultation because of acute kidney injury secondary to urinary tract infection, nausea vomiting and low blood pressure and has history of chronic kidney disease. She came in with nausea vomiting and symptoms of urinary tract infection. Urine culture grew multiple organisms symptoms including pseudomonas Morganella and E. coli. 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 Objective - Vital Signs Vital signs: Vital Signs Temp 97.9 F 09/18/22 06:45 Pulse 75 09/18/22 06:45 Resp 16 09/18/22 06:45 BP 97/56 09/18/22 06:45 Pulse Ox 95 09/18/22 06:45 FiO2 Intake & Output 09/17/22 09/18/22 09/18/22 18:59 06:59 18:59 Intake Total 1080 Output Total 650 1050 Balance 430 -1050 Intake: Oral 1080 Output: Urine 650 1050 Other: Voiding Method External Catheter External Catheter External Catheter # Voids 1 On exam she is sleepy but arousable and cooperative HEENT exam no JVP neck is supple no facial asymmetry Lungs clear to auscultation good air entry bilaterally Heart sounds unremarkable Abdomen soft nontender Extremity no edema Neurologically awake alert oriented - Labs CBC & Chem 7: 09/17/22 05:25 09/17/22 05:25 Labs: Abnormal Lab Results - Last 24 Hours (Table) 09/17/22 09/17/22 09/17/22 Range/Units 05:25 05:25 11:19 WBC 10.44 H (4.50-10.00) X 10*3/uL RBC 3.07 L (4.10-5.20) X 10*6/uL Hgb 8.5 L (12.0-15.0) g/dL Hct 28.2 L (37.2-46.3) % MCHC 30.1 L (32.0-37.0) g/dL RDW 19.7 H (11.5-14.5) % MPV 12.8 H (9.5-12.2) fL Immature Gran # 0.05 H (0.00-0.04) X 10*3/uL Eosinophils # 0.42 H (0.04-0.35) X 10*3/uL Anion Gap 9.50 L (10.00-18.00) mmol/L BUN 44.6 H (9.0-27.0) mg/dL Creatinine 2.1 H (0.6-1.5) mg/dL Est GFR (CKD-EPI)AfAm 24.6 L (60.0-200.0) Est GFR (CKD-EPI)NonAf 21.3 L (60.0-200.0) BUN/Creatinine Ratio 21.76 H (12.00-20.00) Ratio POC Glucose (mg/dL) 136 H (70-110) mg/dL 09/17/22 09/17/22 09/18/22 Range/Units 16:26 20:42 06:19 WBC (4.50-10.00) X 10*3/uL RBC (4.10-5.20) X 10*6/uL Hgb (12.0-15.0) g/dL Hct (37.2-46.3) % MCHC (32.0-37.0) g/dL RDW (11.5-14.5) % MPV (9.5-12.2) fL Immature Gran # (0.00-0.04) X 10*3/uL Eosinophils # (0.04-0.35) X 10*3/uL Anion Gap (10.00-18.00) mmol/L BUN (9.0-27.0) mg/dL Creatinine (0.6-1.5) mg/dL Est GFR (CKD-EPI)AfAm (60.0-200.0) Est GFR (CKD-EPI)NonAf (60.0-200.0) BUN/Creatinine Ratio (12.00-20.00) Ratio POC Glucose (mg/dL) 228 H 256 H 112 H (70-110) mg/dL Microbiology - Last 24 Hours (Table) 09/13/22 18:14 Urine Culture - Final Urine,Voided Escherichia coli Morganella morganii Pseudomonas aeruginosa 09/13/22 16:50 Blood Culture - Preliminary Blood No Growth after 96 hours 09/13/22 17:14 Blood Culture - Preliminary Blood No Growth after 96 hours Assessment and Plan Assessment: Impression 1. Acute kidney injury secondary to UTI. Creatinine peaked at 3 and is down to 2.1 as of yesterday last today are pending 2. Chronic kidney disease stage III B Baseline creatinine 1.6 from 2019 etiology nephrosclerosis and possible diabetic nephropathy 3. 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 Diabetes mellitus with diabetic nephropathy possibly although urine proteinuria is only trace on UA has not been quantified 5. Anemia of chronic disease, hemoglobin is 8.5 as of yesterday iron saturation 7% on 09/15/2022, on Ferrlecit and 25 mg daily started on 09/16/2022, today would be the second dose as she missed her dose yesterday seemingly Recommendation 1. Maintain current medications including the IV Ferrlecit 2. Antibiotic regimen per infectious disease and primary care.
--- NOTE | 2022-09-18 10:51 | P.PN ---
Subjective Progress Note Date: 09/18/22 Principal diagnosis: E. coli urinary tract infection Patient is a 87-year-old female with multiple comorbidities presenting to the hospital for evaluation of generalized weakness decreased oral intake, diagnosed with UTI and renal insufficiency. On today's evaluation that is 09/18/2022, the patient remains to be afebrile, the patient is breathing comfortably on room air patient is currently sleepy and did not provide any history no vomiting no diarrhea or any other changes reported by the nursing staff Objective - Vital Signs Vital signs: Vital Signs Temp 97.9 F 09/18/22 06:45 Pulse 75 09/18/22 06:45 Resp 16 09/18/22 06:45 BP 97/56 09/18/22 06:45 Pulse Ox 95 09/18/22 06:45 FiO2 Intake & Output 09/17/22 09/18/22 09/18/22 18:59 06:59 18:59 Intake Total 1080 Output Total 650 1050 Balance 430 -1050 Intake: Oral 1080 Output: Urine 650 1050 Other: Voiding Method External Catheter External Catheter External Catheter # Voids 1 - Exam GENERAL DESCRIPTION: An elderly female lying in bed in no distress RESPIRATORY SYSTEM: Unlabored breathing , decreased breath sounds at bases HEART: S1 S2 regular rate and rhythm , ABDOMEN: Soft , no tenderness Lower mid back across did have a erythematous patch likely stage I pressure ulcer - Labs CBC & Chem 7: 09/17/22 05:25 09/17/22 05:25 Labs: Abnormal Lab Results - Last 24 Hours (Table) 09/17/22 09/17/22 09/17/22 Range/Units 05:25 05:25 11:19 WBC 10.44 H (4.50-10.00) X 10*3/uL RBC 3.07 L (4.10-5.20) X 10*6/uL Hgb 8.5 L (12.0-15.0) g/dL Hct 28.2 L (37.2-46.3) % MCHC 30.1 L (32.0-37.0) g/dL RDW 19.7 H (11.5-14.5) % MPV 12.8 H (9.5-12.2) fL Immature Gran # 0.05 H (0.00-0.04) X 10*3/uL Eosinophils # 0.42 H (0.04-0.35) X 10*3/uL Anion Gap 9.50 L (10.00-18.00) mmol/L BUN 44.6 H (9.0-27.0) mg/dL Creatinine 2.1 H (0.6-1.5) mg/dL Est GFR (CKD-EPI)AfAm 24.6 L (60.0-200.0) Est GFR (CKD-EPI)NonAf 21.3 L (60.0-200.0) BUN/Creatinine Ratio 21.76 H (12.00-20.00) Ratio POC Glucose (mg/dL) 136 H (70-110) mg/dL 09/17/22 09/17/22 09/18/22 Range/Units 16:26 20:42 06:19 WBC (4.50-10.00) X 10*3/uL RBC (4.10-5.20) X 10*6/uL Hgb (12.0-15.0) g/dL Hct (37.2-46.3) % MCHC (32.0-37.0) g/dL RDW (11.5-14.5) % MPV (9.5-12.2) fL Immature Gran # (0.00-0.04) X 10*3/uL Eosinophils # (0.04-0.35) X 10*3/uL Anion Gap (10.00-18.00) mmol/L BUN (9.0-27.0) mg/dL Creatinine (0.6-1.5) mg/dL Est GFR (CKD-EPI)AfAm (60.0-200.0) Est GFR (CKD-EPI)NonAf (60.0-200.0) BUN/Creatinine Ratio (12.00-20.00) Ratio POC Glucose (mg/dL) 228 H 256 H 112 H (70-110) mg/dL Microbiology - Last 24 Hours (Table) 09/13/22 16:50 Blood Culture - Preliminary Blood No Growth after 96 hours 09/13/22 17:14 Blood Culture - Preliminary Blood No Growth after 96 hours 09/13/22 18:14 Urine Culture - Preliminary Urine,Voided Escherichia coli Morganella morganii Gram Neg Bacilli Assessment and Plan (1) Urinary tract infection Current Visit: Yes Status: Acute Code(s): N39.0 - URINARY TRACT INFECTION, SITE NOT SPECIFIED SNOMED Code(s): 10305801 Plan: 1patient presented to hospital with acute nausea vomiting decreased oral intake significantly foul-smelling and cloudy urine and some burning concerning for a symptomatic urinary tract infection from enteric gram-negative pathogen. 2patient ultrasound of the abdomen did not show any hydronephrosis. 3upper back stage I pressure ulcer we will apply a skin protectant cream and k eep the area off the pressure 4-patient has lost her IV and is currently being treated with oral Omnicef and monitor clinical course closely Time with Patient: Less than 30
[2022-09-18 10:59] LABS: Glucose,Whole Blood 142 mg/dL (70-110)
[2022-09-18] MEDS: ALBUTEROL HFA INHALER INHALATION PRN (11:24)
[2022-09-18 11:30] LABS: Basophils # (A) 0.05 X 10*3/uL (0.00-0.10); Basophils % (A) 0.6 %; Eosinophils # (A) 0.31 X 10*3/uL (0.04-0.35); Eosinophils % (A) 3.6 %; HCT 26.5 % (37.2-46.3); Immature Grans, Automated 0.7 %; Lymphocytes # (A) 1.86 X 10*3/uL (0.90-5.00); Lymphocytes % (A) 21.9 %; MCH 27.6 pg (27.0-32.0); MCHC 30.2 g/dL (32.0-37.0); MCV 91.4 fL (80.0-97.0); Mean Platelet Volume 12.8 fL (9.5-12.2); Monocytes # (A) 0.82 X 10*3/uL (0.20-1.00); Monocytes % (A) 9.6 %; NRBC Per 100 WBC 0 /100 WBCS (0.0-0.0); Neutrophils % (A) 63.6 %; Platelet Count 211 X 10*3/uL (140-440); RDW 19.6 % (11.5-14.5)
[2022-09-18 12:01] LABS: African American GFR (CKD) 30.2 (60.0-200.0); Anion Gap 8.4 mmol/L (10.00-18.00); BUN/Creat Ratio 23.87 Ratio (12.00-20.00); Blood Urea Nitrogen 41.3 mg/dL (9.0-27.0); Calcium 9.2 mg/dL (8.7-10.3); Carbon Dioxide 27.9 mmol/L (20.0-27.5); Non-African American GFR(CKD) 26.1 (60.0-200.0); Potassium 4.2 mmol/L (3.5-5.5)
--- NOTE | 2022-09-18 13:31 | P.PN ---
Subjective Progress Note Date: 09/18/22 87-year-old female came in with complaints of for dysuria as well as decreased urine output. Patient is found to have abnormal urine and was admitted for urinary tract infection patient does have leukocytosis without any fever. Patient is feeling better at this time. Patient clinically doesn't have any obvious CHF symptoms patient doesn't have any pedal edema or elevated JVD a chest x-ray showed mild pleural effusions patient is on diuretics at home. I ordered a BNP patient is presently on fluids as well as diuretics, depending on the BNP one of these negative.. Patient has elevated creatinine 1.8 baseline is around 1.2. Epogen live Kamryn weakness and tiredness. 09/15/2022 Patient was seen and evaluated in follow-up today currently maintained on IV antibiotics in the form of ceftriaxone while awaiting for urine cultures to finalize. Patient is continued on gentle IV hydration as well with kidney function is worsening up to 3 today and have consulted nephrology and appreciate input and recommendations. Patient also with elevated WBC of 18.33 will consult infectious disease and appreciate input and recommendations. Urine culture preliminary showing gram-negative bacilli. She is currently afebrile continues to be Confused and a poor historian. Patient denies chest pain or shortness of breath. No reports of nausea or vomiting noted and patient reports tolerating diet. Oral intake is fair. Patient's blood pressures have been extremely low and being started on midodrine and will hold metolazone, losartan, and Lasix as well. 09/16/2022 Patient is seen and evaluated this morning maintained on IV ceftriaxone and urine culture finalized with E. coli with sensitivities and infectious disease consulted as well as nephrology. Patient is continued on gentle IV hydration sh owing some improvement in kidney function test creatinine is now 2.6. Patient's more awake and alert as well today. Patient is afebrile and WBC is trending down. Per nursing staff patient is eating well and tolerating and eating all meals with no reports of nausea or vomiting noted. Diuretics on hold for now. Will follow-up with repeat labs. Patient is weak and will recommend physical therapy evaluation for possible ECF. Case management is following and aware. 09/17/2022 Patient was seen and evaluated in follow-up this morning currently sitting up in the chair. Patient reporting some mid to lower back tenderness and skin is erythematous and excoriated appears to be somewhat macerated as well. Per nursing staff patient had been laying in the bed for over 48 hours and has been incontinent. Infectious disease following and patient was continued on IV antibiotics although patient accidentally removed her IV and is now transition to oral Omnicef as urine culture showed E. coli. Some further cultures developing showing Morganella with some sensitivities. Patient was scheduled to be discharged to [facility] for continued PT/OT therapy for significant weakness. Patient is a 2 person assist on getting up and standing. Patient also has multiple folds in the skin given her body habitus that appeared yeastlike and would recommend using the moisturizing material in the folds as well as some nystatin powder. Patient is afebrile with no reports of chest pain or shortness of breath. Patient denies nausea or vomiting and is tolerating diet. 09/18/2022 Patient is evaluated on medical floor resting in bed. Main complaint is back discomfort secondary to excoriation. Optifoam dressing will be applied and continue with barrier cream. Patient to continue on oral omnicef for positive urine culture. Patient recommending to continue on IV ferrlecit however does not have IV access. Patient hoping to discharge to rehab today however [facility] unable to accept patient until tuesday. Review of systems: Constitutional: No reports of fatigue, fever, or chills Cardiovascular: No reports of chest pain or palpitations Respiratory: No reports of shortness of breath or cough GI: No reports of nausea, vomiting, or diarrhea : No reports of dysuria or retention Neurovascular: reports of generalized weakness All medications have been reviewed PHYSICAL EXAMINATION: GENERAL: The patient is alert and oriented x2, not in any acute distress. Well developed, well nourished. Obese HEENT: Pupils are round and equally reacting to light. EOMI. No scleral icterus. No conjunctival pallor. Normocephalic, atraumatic. No pharyngeal erythema. No thyromegaly. CARDIOVASCULAR: S1 and S2 present. No murmurs, rubs, or gallops. PULMONARY: Chest is clear to auscultation, no wheezing or crackles. ABDOMEN: Soft, nontender, nondistended, normoactive bowel sounds. No palpable organomegaly. MUSCULOSKELETAL: No joint swelling or deformity. EXTREMITIES: No cyanosis, clubbing, significant bilateral lower extremity chronic edema NEUROLOGICAL: Gross neurological examination did not reveal any focal deficits. Diffusely weak SKIN: No rashes. Lower to mid back pain band like strip with redness and discomfort, appears excoriated and somewhat macerated Assessment: -Acute urinary tract infection present on admission, with E. coli in the cultures -Acute renal failure: Most probably secondary to diuretics, and hypotension -Congestive heart failure probably diastolic dysfunction not in CHF exacerbation at this time -Skin excoriation and maceration of the lower to mid back region, most likely secondary to moisture and incontinence of urine with significant immobility, concerns for stage I pressure ulcer -Type 2 diabetes mellitus -Hyperlipidemia -Hypertension -Obesity, sleep apnea uses CPAP machine which will be continued -Hypothyroidism -Depression -generalized weakness secondary to is related muscle atrophy -DVT prophylaxis: Subcutaneous heparin -Full code Plan: Patient will be continued on oral Omnicef as patient lost IV access with infectious disease and nephrology following. Recommend continue holding diuretics for now and will monitor kidney functions. Nephrology is following as well Urine culture finalized showing E. coli with sensitivities and will need oral antibiotics on discharge with infectious disease following Recommend PT/OT daily evaluation as patient is significantly weak and requiring almost a 2 person assist to get up out of the bed. Unfortunately there is no physical therapy over the weekend and encouraged the nursing staff to have the patient up and out of the bed at least 3 times per day Daughter was concerned of a rash on her back although there is no rash but appears to be a band-like strip of excoriated skin with maceration and would recommend strict offloading, frequent position changes, sitting up in a chair, avoiding moisture to the area and may use an extremely thin layer of barrier paste to the area or some nystatin powder. Infectious disease following with concerns for stage I pressure ulcer of the area although does not appear to be a pressure ulcer at this time. Encouraged oral intake and increased activity as tolerated Patient was scheduled to be discharged to [facility] and daughter is contesting the discharge with case management following in undergoing the appeal process. Unfortunately [facility] is unable to accept patients over the weekend and will likely not discharge until Tuesday. Patient is requesting for discharge to [facility]. The impression and plan of care has been dictated by Gita Zuñiga, Nurse Practitioner as directed. Dr. Jose Luis MD I have performed a history and physical examination and medical decision making of this patient, discussed the same with the dictator, and agree with the dictators assessment and plan as written, documented as a scribe. Based on total visit time, I have performed more than 50% of this visit. Objective - Vital Signs Vital signs: Vital Signs Temp 97.9 F 09/18/22 06:45 Pulse 75 09/18/22 06:45 Resp 16 09/18/22 06:45 BP 97/56 09/18/22 06:45 Pulse Ox 95 09/18/22 06:45 FiO2 Intake & Output 09/17/22 09/18/22 09/18/22 18:59 06:59 18:59 Intake Total 1080 Output Total 650 1050 Balance 430 -1050 Intake: Oral 1080 Output: Urine 650 1050 Other: Voiding Method External Catheter External Catheter External Catheter # Voids 1 - Labs CBC & Chem 7: 09/18/22 06:48 09/18/22 06:48 Labs: Abnormal Lab Results - Last 24 Hours (Table) 09/17/22 09/17/22 09/17/22 Range/Units 05:25 05:25 11:19 WBC 10.44 H (4.50-10.00) X 10*3/uL RBC 3.07 L (4.10-5.20) X 10*6/uL Hgb 8.5 L (12.0-15.0) g/dL Hct 28.2 L (37.2-46.3) % MCHC 30.1 L (32.0-37.0) g/dL RDW 19.7 H (11.5-14.5) % MPV 12.8 H (9.5-12.2) fL Immature Gran # 0.05 H (0.00-0.04) X 10*3/uL Eosinophils # 0.42 H (0.04-0.35) X 10*3/uL Anion Gap 9.50 L (10.00-18.00) mmol/L BUN 44.6 H (9.0-27.0) mg/dL Creatinine 2.1 H (0.6-1.5) mg/dL Est GFR (CKD-EPI)AfAm 24.6 L (60.0-200.0) Est GFR (CKD-EPI)NonAf 21.3 L (60.0-200.0) BUN/Creatinine Ratio 21.76 H (12.00-20.00) Ratio POC Glucose (mg/dL) 136 H (70-110) mg/dL 09/17/22 09/17/22 09/18/22 Range/Units 16:26 20:42 06:19 WBC (4.50-10.00) X 10*3/uL RBC (4.10-5.20) X 10*6/uL Hgb (12.0-15.0) g/dL Hct (37.2-46.3) % MCHC (32.0-37.0) g/dL RDW (11.5-14.5) % MPV (9.5-12.2) fL Immature Gran # (0.00-0.04) X 10*3/uL Eosinophils # (0.04-0.35) X 10*3/uL Anion Gap (10.00-18.00) mmol/L BUN (9.0-27.0) mg/dL Creatinine (0.6-1.5) mg/dL Est GFR (CKD-EPI)AfAm (60.0-200.0) Est GFR (CKD-EPI)NonAf (60.0-200.0) BUN/Creatinine Ratio (12.00-20.00) Ratio POC Glucose (mg/dL) 228 H 256 H 112 H (70-110) mg/dL Microbiology - Last 24 Hours (Table) 09/13/22 16:50 Blood Culture - Preliminary Blood No Growth after 96 hours 09/13/22 17:14 Blood Culture - Preliminary Blood No Growth after 96 hours 09/13/22 18:14 Urine Culture - Preliminary Urine,Voided Escherichia coli Morganella morganii Gram Neg Bacilli Assessment and Plan Time with Patient: Less than 30
[2022-09-18] MEDS: SODIUM FERRIC GLUCONAT-SUCROSE 125 MG in SODIUM CHLORIDE 0.9% 100 ML IVPB SCH (14:32)
[2022-09-18 16:04] LABS: Glucose,Whole Blood 111 mg/dL (70-110)
[2022-09-18 21:10] LABS: Glucose,Whole Blood 116 mg/dL (70-110)
[2022-09-18] MEDS: MEMANTINE 10 MG TAB PO SCH (22:08)
[2022-09-18] MEDS: DULoxetine HCL 60 MG CAPSULE.DR PO SCH (22:08)
[2022-09-19 06:28] LABS: Glucose,Whole Blood 94 mg/dL (70-110)
[2022-09-19] MEDS: NATEGLINIDE 60 MG PO SCH ×3 (06:34→16:48)
[2022-09-19] MEDS: INSULIN DETEMIR (LEVEMIR) 100 UNIT/ML SYR SQ SCH (06:34)
[2022-09-19] MEDS: PANTOPRAZOLE 40 MG TABLET PO SCH (06:34)
[2022-09-19] MEDS: MIDODRINE 5 MG TAB PO SCH ×3 (06:34→16:48)
[2022-09-19] MEDS: LEVOTHYROXINE 75 MCG TAB PO SCH (06:34)
[2022-09-19] MEDS: HEPARIN SODIUM,PORCINE/PF 5,000 UNIT/0.5 ML SYRINGE SQ SCH ×2 (08:16→21:15)
[2022-09-19] MEDS: CYANOCOBALAMIN 500 MCG TAB PO SCH (08:16)
[2022-09-19] MEDS: ASPIRIN 81 MG PO SCH (08:17)
[2022-09-19] MEDS: CHOLECALCIFEROL 125 MCG (5000 IU) TABLET PO SCH (08:17)
[2022-09-19] MEDS: SODIUM FERRIC GLUCONAT-SUCROSE 125 MG in SODIUM CHLORIDE 0.9% 100 ML IVPB SCH (08:17)
[2022-09-19] MEDS: LORATADINE 10 MG TAB PO SCH (08:17)
[2022-09-19] MEDS: ATORVASTATIN 10 MG TAB PO SCH (08:17)
[2022-09-19] MEDS: ASCORBIC ACID 500 MG TAB PO SCH (08:17)
[2022-09-19] MEDS: NON FORMULARY DRUG (Mirabegron [Myrbetriq] 50 MG Tab.Er.24h) PO SCH (08:17)
[2022-09-19] MEDS: ISOSORBIDE MONONITRATE ER 30 MG TAB.ER.24H PO SCH (08:17)
[2022-09-19] MEDS: DONEPEZIL 10 MG TAB PO SCH ×2 (08:17→21:15)
[2022-09-19] MEDS: CEFDINIR 300 MG CAP PO SCH (08:19)
[2022-09-19] MEDS: buPROPion SR 100 MG TABLET.ER PO SCH ×2 (08:19→21:15)
[2022-09-19] MEDS: PREGABALIN 50 MG CAP PO SCH ×2 (08:22→21:15)
--- NOTE | 2022-09-19 10:34 | P.PN ---
Subjective Progress Note Date: 09/19/22 Principal diagnosis: This is a 87-year-old female seen in consultation because of acute kidney injury secondary to urinary tract infection, nausea vomiting and low blood pressure and has history of chronic kidney disease. She came in with nausea vomiting and symptoms of urinary tract infection. Urine culture grew multiple organisms symptoms including pseudomonas Morganella and E. coli. Blood cultures are negative This morning she says she is feeling fine and denies any complaint no nausea vomiting good appetite no chest pain fever chills shortness of breath. Urine output is 1700 mL. 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 Objective - Vital Signs Vital signs: Vital Signs Temp 98.3 F 09/19/22 07:00 Pulse 73 09/19/22 07:00 Resp 18 09/19/22 07:00 BP 125/67 09/19/22 07:00 Pulse Ox 96 09/19/22 07:00 FiO2 Intake & Output 09/18/22 09/19/22 09/19/22 17:59 06:59 18:59 Output Total Balance Output: Urine Other: Voiding Method # Voids Awake alert oriented comfortable On room air No JVP in no facial asymmetry Lungs clear to auscultation good air entry bilaterally Heart sounds unremarkable Abdomen soft nontender obese Extremity exam reveals minimal edema neurologically awake alert oriented - Labs CBC & Chem 7: 09/18/22 06:48 09/18/22 06:48 Labs: Abnormal Lab Results - Last 24 Hours (Table) 09/18/22 09/18/22 09/18/22 Range/Units 06:48 06:48 10:56 RBC 2.90 L (4.10-5.20) X 10*6/uL Hgb 8.0 L (12.0-15.0) g/dL Hct 26.5 L (37.2-46.3) % MCHC 30.2 L (32.0-37.0) g/dL RDW 19.6 H (11.5-14.5) % MPV 12.8 H (9.5-12.2) fL Immature Gran # 0.06 H (0.00-0.04) X 10*3/uL Carbon Dioxide 27.9 H (20.0-27.5) mmol/L Anion Gap 8.40 L (10.00-18.00) mmol/L BUN 41.3 H (9.0-27.0) mg/dL Creatinine 1.7 H (0.6-1.5) mg/dL Est GFR (CKD-EPI)AfAm 30.2 L (60.0-200.0) Est GFR (CKD-EPI)NonAf 26.1 L (60.0-200.0) BUN/Creatinine Ratio 23.87 H (12.00-20.00) Ratio POC Glucose (mg/dL) 142 H (70-110) mg/dL 09/18/22 09/18/22 Range/Units 16:02 21:09 RBC (4.10-5.20) X 10*6/uL Hgb (12.0-15.0) g/dL Hct (37.2-46.3) % MCHC (32.0-37.0) g/dL RDW (11.5-14.5) % MPV (9.5-12.2) fL Immature Gran # (0.00-0.04) X 10*3/uL Carbon Dioxide (20.0-27.5) mmol/L Anion Gap (10.00-18.00) mmol/L BUN (9.0-27.0) mg/dL Creatinine (0.6-1.5) mg/dL Est GFR (CKD-EPI)AfAm (60.0-200.0) Est GFR (CKD-EPI)NonAf (60.0-200.0) BUN/Creatinine Ratio (12.00-20.00) Ratio POC Glucose (mg/dL) 111 H 116 H (70-110) mg/dL Microbiology - Last 24 Hours (Table) 09/13/22 16:50 Blood Culture - Preliminary Blood No Growth after 120 hours 09/13/22 17:14 Blood Culture - Preliminary Blood No Growth after 120 hours 09/13/22 18:14 Urine Culture - Final Urine,Voided Escherichia coli Morganella morganii Pseudomonas aeruginosa Assessment and Plan Assessment: Impression 1. Acute kidney injury secondary to UTI. Creatinine peaked at 3 and is down to 1.7 as of yesterday last today are pending 2. Chronic kidney disease stage III B Baseline creatinine 1.6 from 2019 etio logy nephrosclerosis and possible diabetic nephropathy 3. 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 Diabetes mellitus with diabetic nephropathy possibly although urine prote inuria is only trace on UA has not been quantified 5. Anemia of chronic disease, hemoglobin is 8.0 as of yesterday iron saturation 7% on 09/15/2022, on Ferrlecit a 125 mg daily started on 09/16/2022, today would be the third dose dose Recommendation 1. Maintain current medications including the IV Ferrlecit 2. Antibiotic regimen per infectious disease and primary care.
[2022-09-19 11:03] LABS: Glucose,Whole Blood 121 mg/dL (70-110)
--- NOTE | 2022-09-19 13:57 | P.PN ---
Subjective Progress Note Date: 09/19/22 87-year-old female came in with complaints of for dysuria as well as decreased urine output. Patient is found to have abnormal urine and was admitted for urinary tract infection patient does have leukocytosis without any fever. Patient is feeling better at this time. Patient clinically doesn't have any obvious CHF symptoms patient doesn't have any pedal edema or elevated JVD a chest x-ray showed mild pleural effusions patient is on diuretics at home. I ordered a BNP patient is presently on fluids as well as diuretics, depending on the BNP one of these negative.. Patient has elevated creatinine 1.8 baseline is around 1.2. Epogen live Kamryn weakness and tiredness. 09/15/2022 Patient was seen and evaluated in follow-up today currently maintained on IV antibiotics in the form of ceftriaxone while awaiting for urine cultures to finalize. Patient is continued on gentle IV hydration as well with kidney function is worsening up to 3 today and have consulted nephrology and appreciate input and recommendations. Patient also with elevated WBC of 18.33 will consult infectious disease and appreciate input and recommendations. Urine culture preliminary showing gram-negative bacilli. She is currently afebrile continues to be Confused and a poor historian. Patient denies chest pain or shortness of breath. No reports of nausea or vomiting noted and patient reports tolerating diet. Oral intake is fair. Patient's blood pressures have been extremely low and being started on midodrine and will hold metolazone, losartan, and Lasix as well. 09/16/2022 Patient is seen and evaluated this morning maintained on IV ceftriaxone and urine culture finalized with E. coli with sensitivities and infectious disease consulted as well as nephrology. Patient is continued on gentle IV hydration sh owing some improvement in kidney function test creatinine is now 2.6. Patient's more awake and alert as well today. Patient is afebrile and WBC is trending down. Per nursing staff patient is eating well and tolerating and eating all meals with no reports of nausea or vomiting noted. Diuretics on hold for now. Will follow-up with repeat labs. Patient is weak and will recommend physical therapy evaluation for possible ECF. Case management is following and aware. 09/17/2022 Patient was seen and evaluated in follow-up this morning currently sitting up in the chair. Patient reporting some mid to lower back tenderness and skin is erythematous and excoriated appears to be somewhat macerated as well. Per nursing staff patient had been laying in the bed for over 48 hours and has been incontinent. Infectious disease following and patient was continued on IV antibiotics although patient accidentally removed her IV and is now transition to oral Omnicef as urine culture showed E. coli. Some further cultures developing showing Morganella with some sensitivities. Patient was scheduled to be discharged to [facility] for continued PT/OT therapy for significant weakness. Patient is a 2 person assist on getting up and standing. Patient also has multiple folds in the skin given her body habitus that appeared yeastlike and would recommend using the moisturizing material in the folds as well as some nystatin powder. Patient is afebrile with no reports of chest pain or shortness of breath. Patient denies nausea or vomiting and is tolerating diet. 09/18/2022 Patient is evaluated on medical floor resting in bed. Main complaint is back discomfort secondary to excoriation. Optifoam dressing will be applied and continue with barrier cream. Patient to continue on oral omnicef for positive urine culture. Patient recommending to continue on IV ferrlecit however does not have IV access. Patient hoping to discharge to rehab today however [facility] unable to accept patient until tuesday. 09/19/2022 Patient is evaluated today on medical floor. No acute events overnight. Patients kidney function continues to improve and most recent creatinine 1.7. Patient has received 3 doses of IV ferrlecit. Patient reports sleeping well last night and reports improvement in discomfort from back excoriation/wound. Review of systems: Constitutional: No reports of fatigue, fever, or chills Cardiovascular: No reports of chest pain or palpitations Respiratory: No reports of shortness of breath or cough GI: No reports of nausea, vomiting, or diarrhea : No reports of dysuria or retention Neurovascular: reports of generalized weakness All medications have been reviewed PHYSICAL EXAMINATION: GENERAL: The patient is alert and oriented x2, not in any acute distress. Well developed, well nourished. Obese HEENT: Pupils are round and equally reacting to light. EOMI. No scleral icterus. No conjunctival pallor. Normocephalic, atraumatic. No pharyngeal erythema. No thyromegaly. CARDIOVASCULAR: S1 and S2 present. No murmurs, rubs, or gallops. PULMONARY: Chest is clear to auscultation, no wheezing or crackles. ABDOMEN: Soft, nontender, nondistended, normoactive bowel sounds. No palpable organomegaly. MUSCULOSKELETAL: No joint swelling or deformity. EXTREMITIES: No cyanosis, clubbing, significant bilateral lower extremity chronic edema NEUROLOGICAL: Gross neurological examination did not reveal any focal deficits. Diffusely weak SKIN: No rashes. Lower to mid back pain band like strip with redness and discomfort, appears excoriated and somewhat macerated Assessment: -Acute urinary tract infection present on admission, with E. coli in the cultures -Acute renal failure: Most probably secondary to diuretics, and hypotension -Congestive heart failure probably diastolic dysfunction not in CHF exacerbation at this time -Skin excoriation and maceration of the lower to mid back region, most likely secondary to moisture and incontinence of urine with significant immobility, concerns for stage I pressure ulcer -Type 2 diabetes mellitus -Hyperlipidemia -Hypertension -Obesity, sleep apnea uses CPAP machine which will be continued -Hypothyroidism -Depression -generalized weakness secondary to is related muscle atrophy -DVT prophylaxis: Subcutaneous heparin -Full code Plan: Patient will be continued on oral Omnicef as patient lost IV access with infectious disease and nephrology following. Recommend continue holding diuretics for now and will monitor kidney functions. Nephrology is following as well Urine culture finalized showing E. coli with sensitivities and will need oral antibiotics on discharge with infectious disease following Recommend PT/OT daily evaluation as patient is significantly weak and requiring almost a 2 person assist to get up out of the bed. Unfortunately there is no physical therapy over the weekend and encouraged the nursing staff to have the patient up and out of the bed at least 3 times per day Daughter was concerned of a rash on her back although there is no rash but appears to be a band-like strip of excoriated skin with maceration and would recommend strict offloading, frequent position changes, sitting up in a chair, avoiding moisture to the area and may use an extremely thin layer of barrier paste to the area or some nystatin powder. Infectious disease following with concerns for stage I pressure ulcer of the area although does not appear to be a pressure ulcer at this time. Encouraged oral intake and increased activity as tolerated Patient was scheduled to be discharged to [facility] and daughter is contesting the discharge with case management following in undergoing the appeal process. Unfortunately [facility] is unable to accept patients over the weekend and will likely not discharge until Tuesday. Patient likely will discharge to [facility] in the next 24 hours. The impression and plan of care has been dictated by Gita Zuñiga Nurse Practitioner as directed. Dr. Jose Luis MD I have performed a history and physical examination and medical decision making of this patient, discussed the same with the dictator, and agree with the dictators assessment and plan as written, documented as a scribe. Based on total visit time, I have performed more than 50% of this visit. Objective - Vital Signs Vital signs: Vital Signs Temp 98.6 F 09/19/22 13:05 Pulse 74 09/19/22 13:05 Resp 18 09/19/22 13:05 BP 133/64 09/19/22 13:05 Pulse Ox 97 09/19/22 13:05 FiO2 Intake & Output 09/18/22 09/19/22 09/19/22 17:59 06:59 18:59 Output Total Balance Output: Urine Other: Voiding Method External Catheter # Voids - Labs CBC & Chem 7: 09/18/22 06:48 09/18/22 06:48 Labs: Abnormal Lab Results - Last 24 Hours (Table) 09/18/22 09/18/22 09/19/22 Range/Units 16:02 21:09 11:02 POC Glucose (mg/dL) 111 H 116 H 121 H (70-110) mg/dL Microbiology - Last 24 Hours (Table) 09/13/22 16:50 Blood Culture - Preliminary Blood No Growth after 120 hours 09/13/22 17:14 Blood Culture - Preliminary Blood No Growth after 120 hours 09/13/22 18:14 Urine Culture - Final Urine,Voided Escherichia coli Morganella morganii Pseudomonas aeruginosa Assessment and Plan Time with Patient: Less than 30
--- NOTE | 2022-09-19 15:30 | P.PN ---
Subjective Progress Note Date: 09/19/22 Principal diagnosis: E. coli urinary tract infection Patient is a 87-year-old female with multiple comorbidities presenting to the hospital for evaluation of generalized weakness decreased oral intake, diagnosed with UTI and renal insufficiency. On today's evaluation that is 09/19/2022, the patient continues to be afebrile, the patient is breathing comfortably on room air patient is sleepy but arousable denies any chest pain shortness of breath or cough no abdominal pain no diarrhea Objective - Vital Signs Vital signs: Vital Signs Temp 98.6 F 09/19/22 13:05 Pulse 74 09/19/22 13:05 Resp 18 09/19/22 13:05 BP 133/64 09/19/22 13:05 Pulse Ox 97 09/19/22 13:05 FiO2 Intake & Output 09/18/22 09/19/22 09/19/22 17:59 06:59 18:59 Output Total Balance Output: Urine Other: Voiding Method External Catheter # Voids - Exam GENERAL DESCRIPTION: An elderly female lying in bed in no distress RESPIRATORY SYSTEM: Unlabored breathing , decreased breath sounds at bases HEART: S1 S2 regular rate and rhythm , ABDOMEN: Soft , no tenderness Lower mid back across did have a erythematous patch likely stage I pressure ulcer - Labs CBC & Chem 7: 09/18/22 06:48 09/18/22 06:48 Labs: Abnormal Lab Results - Last 24 Hours (Table) 09/18/22 09/18/22 09/19/22 Range/Units 16:02 21:09 11:02 POC Glucose (mg/dL) 111 H 116 H 121 H (70-110) mg/dL Microbiology - Last 24 Hours (Table) 09/13/22 16:50 Blood Culture - Preliminary Blood No Growth after 120 hours 09/13/22 17:14 Blood Culture - Preliminary Blood No Growth after 120 hours 09/13/22 18:14 Urine Culture - Final Urine,Voided Escherichia coli Morganella morganii Pseudomonas aeruginosa Assessment and Plan (1) Urinary tract infection Current Visit: Yes Status: Acute Code(s): N39.0 - URINARY TRACT INFECTION, SITE NOT SPECIFIED SNOMED Code(s): 25359434 Plan: 1patient presented to hospital with acute nausea vomiting decreased oral intake significantly foul-smelling and cloudy urine and some burning concerning for a symptomatic urinary tract infection from enteric gram-negative pathogen. 2patient ultrasound of the abdomen did not show any hydronephrosis. 3upper back stage I pressure ulcer we will apply a skin protectant cream and keep the area off the pressure 4-patient urine culture also growing pseudomonas we will discontinue Omnicef started on Cipro as we do not have IV access repeat a UA, if repeat UA is negative antibiotic and be safely discontinued discuss with the [facility] for admitting team Time with Patient: Less than 30
[2022-09-19 16:04] LABS: Glucose,Whole Blood 96 mg/dL (70-110)
[2022-09-19] MEDS: ALBUTEROL HFA INHALER INHALATION PRN (19:57)
[2022-09-19 20:09] LABS: Glucose,Whole Blood 148 mg/dL (70-110)
[2022-09-19 20:28] LABS: Appearance,Urine Clear (Clear); Bacteria,Urine Rare /hpf; Bilirubin,Urine Negative (Negative); Blood,Urine Negative (Negative); Color,Urine Yellow; Glucose,Urine (UA) Negative (Negative); Hyaline Casts,Urine 1 /lpf (0-2); Ketones,Urine Negative (Negative); Leukocyte Esterase,Urine Large (Negative); Mucus,Urine Rare /hpf; Nitrite,Urine Negative (Negative); Protein,Urine Negative (Negative); RBC,Urine 2 /hpf (0-5); Specific Gravity,Urine 1.016 (1.001-1.035); Squamous Epithelial Cell,Urine 3 /hpf (0-4); Urobilinogen,Urine <2.0 mg/dL (<2.0); WBC,Urine 15 /hpf (0-5)
[2022-09-19] MEDS: DULoxetine HCL 60 MG CAPSULE.DR PO SCH (21:15)
[2022-09-19] MEDS: MEMANTINE 10 MG TAB PO SCH (21:15)
[2022-09-19] MEDS: CIPROFLOXACIN HCL 250 MG TAB PO SCH (21:36)
[2022-09-20 03:26] VITALS: RESP 17
[2022-09-20 06:24] LABS: Glucose,Whole Blood 112 mg/dL (70-110)
[2022-09-20] MEDS: INSULIN DETEMIR (LEVEMIR) 100 UNIT/ML SYR SQ SCH (06:32)
[2022-09-20] MEDS: MIDODRINE 5 MG TAB PO SCH ×2 (06:32→12:06)
[2022-09-20] MEDS: PANTOPRAZOLE 40 MG TABLET PO SCH (06:33)
[2022-09-20] MEDS: LEVOTHYROXINE 75 MCG TAB PO SCH (06:33)
[2022-09-20] MEDS: NATEGLINIDE 60 MG PO SCH ×2 (06:37→11:59)
[2022-09-20 08:26] VITALS: BP 131/69; PULSE 72; TEMP 98.1
[2022-09-20] MEDS: DONEPEZIL 10 MG TAB PO SCH (08:44)
[2022-09-20] MEDS: CYANOCOBALAMIN 500 MCG TAB PO SCH (08:44)
[2022-09-20] MEDS: PREGABALIN 50 MG CAP PO SCH (08:44)
[2022-09-20] MEDS: HEPARIN SODIUM,PORCINE/PF 5,000 UNIT/0.5 ML SYRINGE SQ SCH (08:44)
[2022-09-20] MEDS: allopurinoL 300 MG TAB PO SCH (08:44)
[2022-09-20] MEDS: ASCORBIC ACID 500 MG TAB PO SCH (08:44)
[2022-09-20] MEDS: CHOLECALCIFEROL 125 MCG (5000 IU) TABLET PO SCH (08:44)
[2022-09-20] MEDS: ASPIRIN 81 MG PO SCH (08:44)
[2022-09-20] MEDS: ISOSORBIDE MONONITRATE ER 30 MG TAB.ER.24H PO SCH (08:45)
[2022-09-20] MEDS: LORATADINE 10 MG TAB PO SCH (08:45)
[2022-09-20] MEDS: ATORVASTATIN 10 MG TAB PO SCH (08:45)
[2022-09-20] MEDS: CIPROFLOXACIN HCL 250 MG TAB PO SCH (08:45)
[2022-09-20] MEDS: buPROPion SR 100 MG TABLET.ER PO SCH (08:46)
[2022-09-20 09:37] VITALS: BMI 30.9
[2022-09-20] MEDS: NON FORMULARY DRUG (Mirabegron [Myrbetriq] 50 MG Tab.Er.24h) PO SCH (11:20)
[2022-09-20 11:36] LABS: Glucose,Whole Blood 172 mg/dL (70-110)
--- NOTE | 2022-09-20 12:03 | P.PN ---
Subjective Progress Note Date: 09/20/22 Principal diagnosis: E. coli urinary tract infection Patient is a 87-year-old female with multiple comorbidities presenting to the hospital for evaluation of generalized weakness decreased oral intake, diagnosed with UTI and renal insufficiency. On today's evaluation that is 09/20/2022, the patient denies any fever or any chills, the patient is breathing comfortably on room air patient denies any chest pain shortness of breath or cough no abdominal pain no diarrhea Objective - Vital Signs Vital signs: Vital Signs Temp 98.1 F 09/20/22 07:05 Pulse 72 09/20/22 08:00 Resp 17 09/20/22 08:00 BP 131/69 09/20/22 07:05 Pulse Ox 95 09/20/22 07:05 FiO2 Intake & Output 09/19/22 09/20/22 09/20/22 18:59 06:59 18:59 Output Total 700 450 Balance -700 -450 Weight 81.647 kg Output: Urine 700 450 Other: Voiding Method External Catheter External Catheter External Catheter # Voids 1 - Exam GENERAL DESCRIPTION: An elderly female lying in bed in no distress RESPIRATORY SYSTEM: Unlabored breathing , decreased breath sounds at bases HEART: S1 S2 regular rate and rhythm , ABDOMEN: Soft , no tenderness Lower mid back across did have a erythematous patch likely stage I pressure ulcer - Labs CBC & Chem 7: 09/18/22 06:48 09/18/22 06:48 Labs: Abnormal Lab Results - Last 24 Hours (Table) 09/19/22 09/19/22 09/19/22 Range/Units 11:02 20:08 20:10 POC Glucose (mg/dL) 121 H 148 H (70-110) mg/dL Ur Leukocyte Esterase Large H (Negative) Urine WBC 15 H (0-5) /hpf Urine Bacteria Rare H (None) /hpf Urine Mucus Rare H (None) /hpf 09/20/22 Range/Units 06:23 POC Glucose (mg/dL) 112 H (70-110) mg/dL Ur Leukocyte Esterase (Negative) Urine WBC (0-5) /hpf Urine Bacteria (None) /hpf Urine Mucus (None) /hpf Microbiology - Last 24 Hours (Table) 09/13/22 16:50 Blood Culture - Final Blood No Growth after 144 hours 09/13/22 17:14 Blood Culture - Final Blood No Growth after 144 hours Assessment and Plan (1) Urinary tract infection Current Visit: Yes Status: Acute Code(s): N39.0 - URINARY TRACT INFECTION, SITE NOT SPECIFIED SNOMED Code(s): 45590461 Plan: 1patient presented to hospital with acute nausea vomiting decreased oral intake significantly foul-smelling and cloudy urine and some burning concerning for a symptomatic urinary tract infection from enteric gram-negative pathogen. 2patient ultrasound of the abdomen did not show any hydronephrosis. 3upper back stage I pressure ulcer we will apply a skin protectant cream and keep the area off the pressure 4-patient urine culture also growing pseudomonas , repeat urine is mildly positive consider only 2 days of oral Cipro on discharge
--- NOTE | 2022-09-20 12:28 | P.PN ---
Subjective Patient is seen for follow-up for acute kidney injury on top of chronic kidney disease. Renal function has improved with creatinine down to 1.7 on 09/18/2022 from peak of 3.0. Patient has an external catheter. 1150 mL of urine reported for 24 hours. No labs from today Objective - Vital Signs Vital signs: Vital Signs Temp 98.1 F 09/20/22 07:05 Pulse 72 09/20/22 08:00 Resp 17 09/20/22 08:00 BP 131/69 09/20/22 07:05 Pulse Ox 95 09/20/22 07:05 FiO2 Intake & Output 09/19/22 09/20/22 09/20/22 18:59 06:59 18:59 Output Total 700 450 Balance -700 -450 Weight 81.647 kg Output: Urine 700 450 Other: Voiding Method External Catheter External Catheter External Catheter # Voids 1 - Exam Awake, comfortable, no acute distress Examination of the heart S1 and S2 Examination lungs bilateral breath sounds are heard Abdomen is soft nontender Examination lower extremities shows edema bilaterally - Labs CBC & Chem 7: 09/18/22 06:48 09/18/22 06:48 Labs: Abnormal Lab Results - Last 24 Hours (Table) 09/19/22 09/19/22 09/20/22 Range/Units 20:08 20:10 06:23 POC Glucose (mg/dL) 148 H 112 H (70-110) mg/dL Ur Leukocyte Esterase Large H (Negative) Urine WBC 15 H (0-5) /hpf Urine Bacteria Rare H (None) /hpf Urine Mucus Rare H (None) /hpf 09/20/22 Range/Units 11:33 POC Glucose (mg/dL) 172 H (70-110) mg/dL Ur Leukocyte Esterase (Negative) Urine WBC (0-5) /hpf Urine Bacteria (None) /hpf Urine Mucus (None) /hpf Microbiology - Last 24 Hours (Table) 09/19/22 20:10 Urine Culture - Preliminary Urine,Voided 09/13/22 16:50 Blood Culture - Final Blood No Growth after 144 hours 09/13/22 17:14 Blood Culture - Final Blood No Growth after 144 hours Assessment and Plan Assessment: 1. Acute kidney injury secondary to UTI. Creatinine peaked at 3 and is down to 1.7 as of 09/18/2022 2. Chronic kidney disease stage III B Baseline creatinine 1.6 from 2019 etiology nephrosclerosis and possible diabetic nephropathy 3. History of renal artery aneurysm repair 4. Diabetes mellitus with diabetic nephropathy possibly although urine proteinuria is only trace on UA has not been quantified 5. Anemia of chronic disease, hemoglobin is 8.0 as of yesterday iron saturation 7% on 09/15/2022, status post Ferrlecit Plan: Check labs today
[2022-09-20 18:49] LABS: African American GFR (CKD) 41.6 (60.0-200.0); Anion Gap 7.1 mmol/L (10.00-18.00); BUN/Creat Ratio 18.42 Ratio (12.00-20.00); Blood Urea Nitrogen 24.5 mg/dL (9.0-27.0); Calcium 10.2 mg/dL (8.7-10.3); Carbon Dioxide 30.5 mmol/L (20.0-27.5); Non-African American GFR(CKD) 35.9 (60.0-200.0); Potassium 4.7 mmol/L (3.5-5.5)
--- NOTE | 2022-09-22 12:17 | CDI ---
Documentation Clarification Form Date: 09/22/2022 12:03:16 PM From: Argentina Allen Phone: Admit Date: 09/13/2022 8:55:00 PM Patient Name: Marleen Mann Visit Number: [id number] Discharge Date: 09/20/2022 2:10:00 PM ATTENTION: The Clinical Documentation Specialists (CDI) and [facility] Coding Staff appreciate your assistance in clarifying documentation. Please respond to the clarification below the line at the bottom and electronically sign. The CDI & [facility] Coding staff will review the response and follow-up if needed. Please note: Queries are made part of the Legal Health Record. If you have any questions, please contact the author of this message via ITS. Dr. Obdulia Amaya Per Nephrology consult "ATN secondary to severe sepsis. Based on this information and the findings below, did patient have severe sepsis or was this ruled out. History/Risk Factors: UTI E coli Pseudomonas Clinical Indicators: WBC 10.8 Lactic acid: 0.8 Blood cultures: No growth Vitals signs: 98.8 F, 85-92 bpm, 18, 122/47, 94% RA Treatment: Cipro, Omnicef and Rocephin ID Consult: UTI foul smelling from enteric gram negative pathogen Antibiotics: Cipro Omnicef and Rocephin Did patient have severe sepsis or was it ruled out: [ ] Severe Sepsis, present on admission [ ] Severe Sepsis ruled out [ ] Other, please specify [ ] Unable to determine SIRS Criteria: 2 or more of the following may indicate SIRS Temperature < 96.8F (36C) or > 101.0F (38.3C) Heart Rate > 90 bpm Respiratory Rate > 20 breaths/min or PaCO2 < 32 mmHg White Blood Cell Count > 12,000 or < 4,000 cells/mm3 or > 10% bands Refer to admission H&P and discharge summary which is pretty clear MTDD
== END 2022-09-20 14:10 | DRG 689 ==
LOC: EC 15:55 → 4SSUR 20:55
PROVIDERS: ADMIT Hospitalist; ATTEND Hospitalist
DX: N39.0 Urinary tract infection, site not specified (principal); N17.0 Acute kidney failure with tubular necrosis; I13.0 Hypertensive heart and chronic kidney disease with heart failure and stage 1 through stage 4 chronic kidney disease, or unspecified chronic kidney disease; I50.32 Chronic diastolic (congestive) heart failure; B96.20 Unspecified Escherichia coli [E. coli] as the cause of diseases classified elsewhere; B96.5 Pseudomonas (aeruginosa) (mallei) (pseudomallei) as the cause of diseases classified elsewhere; D63.1 Anemia in chronic kidney disease; E03.9 Hypothyroidism, unspecified; E11.22 Type 2 diabetes mellitus with diabetic chronic kidney disease; E66.9 Obesity, unspecified; Z68.30 Body mass index [BMI] 30.0-30.9, adult; E83.42 Hypomagnesemia; E86.0 Dehydration; E78.5 Hyperlipidemia, unspecified; F32.A Depression, unspecified; F41.9 Anxiety disorder, unspecified; G47.30 Sleep apnea, unspecified; G89.29 Other chronic pain; Z86.74 Personal history of sudden cardiac arrest; L71.9 Rosacea, unspecified; R53.81 Other malaise; D50.9 Iron deficiency anemia, unspecified; N18.32 Chronic kidney disease, stage 3b; R32 Unspecified urinary incontinence; S30.810A Abrasion of lower back and pelvis, initial encounter; Z79.82 Long term (current) use of aspirin; Z79.890 Hormone replacement therapy; Z79.899 Other long term (current) drug therapy; Z82.49 Family history of ischemic heart disease and other diseases of the circulatory system; Z83.3 Family history of diabetes mellitus; Z85.42 Personal history of malignant neoplasm of other parts of uterus; Z80.42 Family history of malignant neoplasm of prostate; Z90.710 Acquired absence of both cervix and uterus; Z95.0 Presence of cardiac pacemaker; Z98.84 Bariatric surgery status; Z79.4 Long term (current) use of insulin
CPT/HCPCS: 36415; 71046; 76770; 80048; 80053; 81001; 82533; 82550; 82728; 83540; 83550; 83605; 83735; 83880; 84484; 85025; 85027; 87040; 87077; 87086; 87186; 94640; 96361; 96365; 96366; 96375; 99285

== ENCOUNTER 2022-09-30 16:45 | Emergency (ER) | payer MEDICARE, BC ==
[2022-09-30] MEDS ORDERED: ACETAMINOPHEN TAB 500 MG TAB PO STA (17:12)
--- NOTE | 2022-09-30 17:16 | ED ---
General Adult HPI - General Stated complaint: increased weakness Time Seen by Provider: 09/30/22 16:58 Source: patient, RN notes reviewed Limitations: no limitations - History of Present Illness Initial comments: Patient is a pleasant 87-year-old female presenting to the emergency department with concern for reported diarrhea and exertional dyspnea. Patient states she feels fine and has no complaints. Patient recently was hostile was with urinary tract infection and sent to nursing facility for rehab. Patient recently just got out of nursing facility a couple of days ago. Patient denies having diarrhea. Patient states there is some dyspnea however this is chronic and unchanged from normal. No reported fever. - Related Data Home Medications Medication Instructions Recorded Confirmed Atorvastatin [Lipitor] 10 mg PO DAILY 08/01/15 09/30/22 DULoxetine HCL [Cymbalta] 60 mg PO HS 08/01/15 09/30/22 Desloratadine 5 mg PO DAILY 08/01/15 09/30/22 Donepezil HCl [Aricept] 10 mg PO BID 08/01/15 09/30/22 Mirabegron [Myrbetriq] 50 mg PO DAILY 08/01/15 09/30/22 Pantoprazole [Protonix] 40 mg PO DAILY 08/01/15 09/30/22 buPROPion HCL [Wellbutrin SR] 200 mg PO BID 08/01/15 09/30/22 Aspirin EC [Ecotrin Low Dose] 81 mg PO DAILY 06/17/16 09/30/22 Isosorbide Mononitrate ER [Imdur] 30 mg PO DAILY 06/17/16 09/30/22 Ascorbic Acid [Vitamin C] 500 mg PO DAILY@119903/25/19 09/30/22 Cyanocobalamin (Vitamin B-12) 2,500 mcg PO DAILY@119903/25/19 09/30/22 [Vitamin B-12] Albuterol Inhaler [Ventolin Hfa 1 - 2 puff INHALATION RT-Q6H PRN 09/13/22 09/30/22 Inhaler] Cholecalciferol [Vitamin D3 (125 125 mcg PO DAILY@119909/13/22 09/30/22 Mcg = 5000 Iu)] Folate/Vitamin B-6/Biotin 1 tab PO DAILY@1200 09/13/22 09/30/22 [id number] Insulin Aspart [NovoLOG Flexpen] See Protocol SQ AC-TID PRN 09/13/22 09/30/22 Insulin Glargine,Hum.rec.anlog 45 units SQ PC-BRKFST 09/13/22 09/30/22 [Lantus Solostar Pen] Levothyroxine Sodium [Synthroid] 150 mcg PO DAILY 09/13/22 09/30/22 Meclizine [Antivert] 12.5 mg PO TID PRN 09/13/22 09/30/22 Memantine [Namenda] 10 mg PO HS 09/13/22 09/30/22 Nateglinide [Starlix] 60 mg PO AC-TID 09/13/22 09/30/22 allopurinoL [Zyloprim] 300 mg PO Q48H 09/13/22 09/30/22 Ferrous Sulfate [Feosol] 325 mg PO DAILY@1200 09/30/22 09/30/22 Furosemide [Lasix] 40 mg PO DAILY 09/30/22 09/30/22 Losartan [Cozaar] 25 mg PO DAILY 09/30/22 09/30/22 Pregabalin [Lyrica] 50 mg PO DAILY 09/30/22 09/30/22 Pregabalin [Lyrica] 100 mg PO HS 09/30/22 09/30/22 metOLazone [Zaroxolyn] 2.5 mg PO TUFR 09/30/22 09/30/22 Previous Rx's Medication Instructions Recorded Ondansetron Odt [Zofran Odt] 4 mg PO Q8HR PRN #10 tab 09/30/22 Allergies Allergy/AdvReac Type Severity Reaction Status Date / Time Penicillins Allergy Rash/Hives Verified 09/30/22 17:50 Sulfa (Sulfonamide Allergy Rash/Hives Verified 09/30/22 17:50 Antibiotics) Review of Systems ROS Statement: Those systems with pertinent positive or pertinent negative responses have been documented in the HPI. ROS Other: All systems not noted in ROS Statement are negative. Constitutional: Reports: as per HPI Eyes: Denies: eye pain ENT: Denies: ear pain Respiratory: Reports: as per HPI. Denies: cough Cardiovascular: Denies: chest pain Endocrine: Denies: fatigue Gastrointestinal: Reports: as per HPI. Denies: abdominal pain Genitourinary: Denies: dysuria Musculoskeletal: Denies: back pain Skin: Denies: rash Neurological: Denies: weakness Past Medical History Past Medical History: Cancer, Heart Failure, Diabetes Mellitus, GERD/Reflux, Hyperlipidemia, Hypertension, Memory Impairment, Osteoarthritis (OA), Sleep Apnea/CPAP/BIPAP, Thyroid Disorder Additional Past Medical History / Comment(s): hiatal hernia, chronic back pain, bilateral neuropathy of legs and feet, leg edema bilaterally, , , cervical and uterine cancer , ROSACEA History of Any Multi-Drug Resistant Organisms: None Reported Past Surgical History: Bariatric Surgery, Cholecystectomy, Heart Catheterization, Hernia Repair, Hysterectomy, Orthopedic Surgery Additional Past Surgical History / Comment(s): 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 Past Psychological History: Anxiety, Depression Smoking Status: Unknown if ever smoked Past Alcohol Use History: None Reported Past Drug Use History: None Reported - Past Family History Father Family Medical History: Cancer Additional Family Medical History / Comment(s): Father of prostate cancer at age 88 yrs. Mother Family Medical History: Cancer, Diabetes Mellitus, Myocardial Infarction (ID) Additional Family Medical History / Comment(s): Mother at age 77yrs. Brother(s) Family Medical History: Blood Disorder, CVA/TIA, Diabetes Mellitus, Myocardial I nfarction (ID) Daughter(s) Family Medical History: Cancer Son(s) Family Medical History: No Reported History General Exam Limitations: no limitations General appearance: alert, in no apparent distress Head exam: Present: normocephalic Eye exam: Present: normal appearance ENT exam: Present: normal oropharynx Neck exam: Present: normal inspection. Absent: tenderness, meningismus Respiratory exam: Present: normal lung sounds bilaterally Cardiovascular Exam: Present: regular rate, normal rhythm GI/Abdominal exam: Present: soft. Absent: tenderness Extremities exam: Present: normal inspection. Absent: pedal edema, calf tenderness Neurological exam: Present: alert. Absent: motor sensory deficit Psychiatric exam: Present: normal affect, normal mood Skin exam: Present: normal color Course Vital Signs 09/30/22 17:18 Temperature 99.5 F Pulse Rate 100 Respiratory 20 Rate Blood Pressure 144/68 O2 Sat by Pulse 94 L Oximetry EKG Findings - EKG Results: EKG: interpreted by GUERREROD (Left axis. Right bundle branch block.), sinus rhythm, normal ST/T EKG shows: tachycardia Medical Decision Making - Medical Decision Making Patient reevaluated and resting comfortably in bed. Patient remains symptom- free. Son is present and states patient has had nausea and decreased appetite the past 2 days and has vomited a couple times. Otherwise symptoms are nonspecific. No reported diarrhea. They're comfortable with attempting discharge home with nausea medication and will return if patient is not doing well. Was pt. sent in by a medical professional or institution (, [facility], BUNDLING MACHINE OPERATOR, urgent care, hospital, or half-way...) When possible be specific @ -No Did you speak to anyone other than the patient for history (EMS, parent, family, police, friend...)? What history was obtained from this source @ -Son does arrive later and helps provide history Did you review nursing and triage notes (agree or disagree)? Why? @ -I reviewed and agree with nursing and triage notes Were old charts reviewed (outside hosp., previous admission, EMS record, old EKG, old radiological studies, urgent care reports/EKG's, half-way records)? Report findings @ -No old charts were reviewed Differential Diagnosis (chest pain, altered mental status, abdominal pain women, abdominal pain men, vaginal bleeding, weakness, fever, dyspnea, syncope, headache, dizziness, GI bleed, back pain, seizure, CVA, palpatations, mental health)? @ -not applicable EKG interpreted by me (3pts min.). @ -As above X-rays interpreted by me (1pt min.). @ -Chest x-ray does not reveal acute abnormality CT interpreted by me (1pt min.). @ -None done U/S interpreted by me (1pt. min.). @ -None done What testing was considered but not performed or refused? (CT, X-rays, U/S, labs)? Why? @ -None What meds were considered but not given or refused? Why? @ -None Did you discuss the management of the patient with other professionals (professionals i.e. , PA, BUNDLING MACHINE OPERATOR, lab, RT, psych nurse, social media strategist, paid search analyst, teacher, risk control officer, onsite case manager)? Give summary @ -No Was smoking cessation discussed for >3mins.? @ -No Was critical care preformed (if so, how long)? @ -No Were there social determinants of health that impacted care today? How? (Homelessness, low income, unemployed, alcoholism, drug addiction, transportation, low edu. Level, literacy, decrease access to med. care, [place] [facility], rehab)? @ -No Was there de-escalation of care discussed even if they declined (Discuss DNR or withdrawal of care, Hospice)? DNR status @ -No What co-morbidities impacted this encounter? (DM, HTN, Smoking, COPD, CAD, Cancer, CVA, ARF, Chemo, Hep., AIDS, mental health diagnosis, sleep apnea, morbid obesity)? @ -None Was patient admitted / discharged? Hospital course, mention meds given and route, prescriptions, significant lab abnormalities, going to OR and other per tinent info. @ -See above Undiagnosed new problem with uncertain prognosis? @ -No Drug Therapy requiring intensive monitoring for toxicity (Heparin, Nitro, Insulin, Cardizem)? @ -No Were any procedures done? @ -No Diagnosis/symptom? @ -nausea Acute, or Chronic, or Acute on Chronic? @ -acute Uncomplicated (without systemic symptoms) or Complicated (systemic symptoms)? @ -default Side effects of treatment? @ -No Exacerbation, Progression, or Severe Exacerbation? @ -No Poses a threat to life or bodily function? How? (Chest pain, USA, ID, pneumonia, PE, COPD, DKA, ARF, appy, cholecystitis, CVA, Diverticulitis, Homicidal, Suicidal, threat to staff... and all critical care pts) @ -No - Lab Data Result diagrams: 09/30/22 18:22 09/30/22 18:22 Lab Results 09/30/22 09/30/22 09/30/22 Range/Units 18: 18: 18: WBC 12.9 H (3.8-10.6) k/uL RBC 3.73 L (3.80-5.40) m/uL Hgb 11.0 L (11.4-16.0) gm/dL Hct 34.8 (34.0-46.0) % MCV 93.2 (80.0-100.0) fL MCH 29.4 (25.0-35.0) pg MCHC 31.6 (31.0-37.0) g/dL RDW 17.6 H (11.5-15.5) % Plt Count 232 (150-450) k/uL MPV 10.3 Neutrophils % 92 % Lymphocytes % 4 % Monocytes % 3 % Eosinophils % 1 % Basophils % 0 % Neutrophils # 11.8 H (1.3-7.7) k/uL Lymphocytes # 0.5 L (1.0-4.8) k/uL Monocytes # 0.4 (0-1.0) k/uL Eosinophils # 0.1 (0-0.7) k/uL Basophils # 0.0 (0-0.2) k/uL Anisocytosis Slight PT 10.7 (9.0-12.0) sec INR 1.0 (<1.2) APTT 29.3 (22.0-30.0) sec Sodium 140 (137-145) mmol/L Potassium 4.4 (3.5-5.1) mmol/L Chloride 106 (98-107) mmol/L Carbon Dioxide 26 (22-30) mmol/L Anion Gap 8 mmol/L BUN 32 H (7-17) mg/dL Creatinine 1.25 H (0.52-1.04) mg/dL Est GFR (CKD-EPI)AfAm 45 (>60 ml/min/1.73 sqM) Est GFR (CKD-EPI)NonAf 39 (>60 ml/min/1.73 sqM) Glucose 215 H (74-99) mg/dL Plasma Lactic Acid Dean (0.7-2.0) mmol/L Calcium 8.9 (8.4-10.2) mg/dL Total Bilirubin 1.3 (0.2-1.3) mg/dL AST 33 (14-36) U/L ALT 18 (4-34) U/L Alkaline Phosphatase 131 H (38-126) U/L Total Protein 6.1 L (6.3-8.2) g/dL Albumin 3.6 (3.5-5.0) g/dL 09/30/ Range/Units 18:22 WBC (3.8-10.6) k/uL RBC (3.80-5.40) m/uL Hgb (11.4-16.0) gm/dL Hct (34.0-46.0) % MCV (80.0-100.0) fL MCH (25.0-35.0) pg MCHC (31.0-37.0) g/dL RDW (11.5-15.5) % Plt Count (150-450) k/uL MPV Neutrophils % % Lymphocytes % % Monocytes % % Eosinophils % % Basophils % % Neutrophils # (1.3-7.7) k/uL Lymphocytes # (1.0-4.8) k/uL Monocytes # (0-1.0) k/uL Eosinophils # (0-0.7) k/uL Basophils # (0-0.2) k/uL Anisocytosis PT (9.0-12.0) sec INR (<1.2) APTT (22.0-30.0) sec Sodium (137-145) mmol/L Potassium (3.5-5.1) mmol/L Chloride (98-107) mmol/L Carbon Dioxide (22-30) mmol/L Anion Gap mmol/L BUN (7-17) mg/dL Creatinine (0.52-1.04) mg/dL Est GFR (CKD-EPI)AfAm (>60 ml/min/1.73 sqM) Est GFR (CKD-EPI)NonAf (>60 ml/min/1.73 sqM) Glucose (74-99) mg/dL Plasma Lactic Acid Dean 1.5 (0.7-2.0) mmol/L Calcium (8.4-10.2) mg/dL Total Bilirubin (0.2-1.3) mg/dL AST (14-36) U/L ALT (4-34) U/L Alkaline Phosphatase (38-126) U/L Total Protein (6.3-8.2) g/dL Albumin (3.5-5.0) g/dL Disposition Clinical Impression: Nausea & vomiting Disposition: HOME SELF-CARE Condition: Stable Instructions (If sedation given, give patient instructions): Acute Nausea and Vomiting (ED) Additional Instructions: perscription sent to pharmacy. F/u pcp 1-2 days for recheck. Return for weakness, vomiting, not tollerating fluids, worsening symptoms or other concerns. Prescriptions: Ondansetron Odt [Zofran Odt] 4 mg PO Q8HR PRN #10 tab PRN Reason: Nausea Is patient prescribed a controlled substance at d/c from ED?: No Referrals: Malcolm Miranda MD [Primary Care Provider] - 1-2 days Time of Disposition: 20:32
[2022-09-30 17:24] VITALS: BP 144/68; PULSE 100; RESP 20; TEMP 99.5
[2022-09-30 18:35] LABS: Anisocytosis Slight; Basophils % (A) 0 %; Eosinophils # (A) 0.1 k/uL (0-0.7); Eosinophils % (A) 1 %; HCT 34.8 % (34.0-46.0); Lymphocytes # (A) 0.5 k/uL (1.0-4.8); Lymphocytes % (A) 4 %; MCH 29.4 pg (25.0-35.0); MCHC 31.6 g/dL (31.0-37.0); MCV 93.2 fL (80.0-100.0); Mean Platelet Volume 10.3; Monocytes # (A) 0.4 k/uL (0-1.0); Monocytes % (A) 3 %; Neutrophils # (A) 11.8 k/uL (1.3-7.7); Neutrophils % (A) 92 %; Platelet Count 232 k/uL (150-450); RBC 3.73 m/uL (3.80-5.40); RDW 17.6 % (11.5-15.5); WBC 12.9 k/uL (3.8-10.6)
[2022-09-30 18:47] LABS: Albumin 3.6 g/dL (3.5-5.0); Calcium 8.9 mg/dL (8.4-10.2); Total Bilirubin 1.3 mg/dL (0.2-1.3); Total Protein 6.1 g/dL (6.3-8.2)
[2022-09-30 18:48] LABS: Potassium 4.4 mmol/L (3.5-5.1)
[2022-09-30 18:51] LABS: Partial Thromboplastin Time 29.3 sec (22.0-30.0); Prothrombin Time 10.7 sec (9.0-12.0)
[2022-09-30] MEDS ORDERED: FAMOTIDINE 20 MG/2 ML VIAL IV STA (20:28)
[2022-09-30] MEDS ORDERED: ONDANSETRON 4 MG/2 ML VIAL IVP STA (20:28)
--- NOTE | 2022-09-30 20:28 | XR ---
EXAMINATION TYPE: XR chest 2V DATE OF EXAM: 09/30/2022 COMPARISON: 09/13/2022 HISTORY: Fever TECHNIQUE: 2 view FINDINGS: Heart is top normal in size. No heart failure. There are chest leads. Costophrenic angles a re clear. Bony thorax is intact. IMPRESSION: No active cardiopulmonary disease. No adverse change.
== END 2022-09-30 22:44 | disposition home or self-care (01) ==
LOC: EC 16:45
DX: R11.2 Nausea with vomiting, unspecified (principal); E11.40 Type 2 diabetes mellitus with diabetic neuropathy, unspecified; I11.0 Hypertensive heart disease with heart failure; I50.9 Heart failure, unspecified; E78.5 Hyperlipidemia, unspecified; F32.A Depression, unspecified; F41.9 Anxiety disorder, unspecified; E07.9 Disorder of thyroid, unspecified; K21.9 Gastro-esophageal reflux disease without esophagitis; M19.90 Unspecified osteoarthritis, unspecified site; Z79.4 Long term (current) use of insulin; Z79.890 Hormone replacement therapy; Z79.82 Long term (current) use of aspirin; Z79.899 Other long term (current) drug therapy; Z88.0 Allergy status to penicillin; Z88.2 Allergy status to sulfonamides; Z90.49 Acquired absence of other specified parts of digestive tract
CPT/HCPCS: 93005; 80053; 83605; 85025; 85610; 85730; 87040; 87636; 71046; 99285; 96374; 96375; J2405; 36415